=== PATIENT | female | born 1965 | race Caucasian/White ===

== ENCOUNTER 2016-08-19 19:59 | Emergency (ER) | payer MEDICARE, MEDICAID ==
[2016-06-13 17:51] VITALS: BMI 23.1
[~2016-08-19 19:59] MED LIST: ASPIRIN325 MG PO; BENICAR HCT 40-1 TA1 PO; BENICAR20 MG PO; CHANTIX 1 MG TAB1 MG PO; CHANTIX0.5 MG; CORDARONE200 MG PO; HEMOCYTE PLUS1 CAP PO; HYDROCHLOROTHIA25 MG GT; HYDROCHLOROTHIA25 MG PO; HYZAAR 50-12.51 TAB PO; K-DUR20 MEQ PO; KLONOPIN1 MG PO; LORCET PLUS TAB1 TAB; OLEPTRO ER150 MG PO; PREMARIN45 GM VG; TENORMIN25 MG PO; TRAZODONE HCL150 MG PO
== END 2016-08-19 22:28 | disposition home or self-care (01) ==
LOC: D.ER 19:59
DX: R07.89 Other chest pain (principal); F17.200 Nicotine dependence, unspecified, uncomplicated

== ENCOUNTER → 2016-09-03 09:38 | Outpatient (CLI) | payer MEDICARE, MEDICAID ==
[2016-06-13 17:51] VITALS: BMI 23.1
[~2016-09-03 09:38] MED LIST changes: +BYSTOLIC5 MG PO; +CARAFATE1 G PO; +PROTONIX40 MG PO
== END | disposition home or self-care (01) ==
LOC: D.CT 09:38
DX: R07.1 Chest pain on breathing (principal)

== ENCOUNTER 2016-09-28 22:45 | Observation (INO) | payer MEDICARE, MEDICAID ==
[~2016-09-28] VITALS: Ht 157.5 cm; Wt 58.2 kg
[~2016-09-28 22:45] MED LIST changes: -BYSTOLIC5 MG PO; -CARAFATE1 G PO; -PROTONIX40 MG PO
[2016-09-28 23:49] LABS: BASOPHILS 0.4 % (0.0-2.0); EOSINOPHILS 3.3 % (0-7); HEMATOCRIT 44.3 % (36.0-48.0); HEMOGLOBIN 15.2 g/dL (12-16); IMMATURE GRANULOCYTES 0.3 % (0-5); LYMPHOCYTES 31.7 % (15-50); MCH 31.7 pg (26.0-34.0); MCHC 34.3 g/dL (31.0-37.0); MCV 92.5 fL (80.0-100.0); MEAN PLATELET VOLUME 9.5 fL (7.4-10.4); MONOCYTES 4.3 % (2-11); PLATELET COUNT 223 10x3/uL (130-400); RBC 4.79 10x6/uL (4.00-5.40); RDW 13.7 % (11.5-14.5); WBC 7.9 10x3/uL (4.8-10.8)
[2016-09-29 00:08] LABS: AMYLASE - SERUM 52 U/L (25-115); LIPASE 867 U/L (73-393)
--- NOTE | 2016-09-29 03:37 | NUR ---
RECEIVED TO ROOM 2109 ALERT AND ORIESNTED 51 Y/O FEMALE SEEN BY DR PEDRAZA FOR PANCREATITIS. NPO, UP AD POLY W/O DIFF. HOB UP SR UP X2, C/L IN REACH. CONTINUE TO MONITOR.
[2016-09-29 04:46] VITALS: BP 127/61; BMI 22.9
[2016-09-29 05:54] LABS: AMYLASE - SERUM 43 U/L (25-115); LIPASE 336 U/L (73-393)
[2016-09-29 07:15] LABS: AMYLASE - SERUM 40 U/L (25-115); LIPASE 299 U/L (73-393)
--- NOTE | 2016-09-29 07:33 | NUR ---
0725-COMPLAINTS OF ABDOMINAL PAIN, 02/16. 0.5 MG DILAUDID GIVEN PER REQUEST. BOWEL SOUNDS HEARD THROUGHOUT ALL QUADS, INST PATIENT TO CALL US IF PRODUCES BOWEL MOVEMENT SO THAT WE CAN SEE IT TO CHART. STATES TO UNDERSTANDING. NPO AT PRESENT TIME. IV SEEN TO LEFT AC OF NS INFUSING AT 125 CC/HR WITHOUT PROBLEMS. LIPASE IS DOWN THIS AM, 299. WILL CONTNUE TO MONITOR.
[2016-09-29 07:47] VITALS: BP 128/86
--- NOTE | 2016-09-29 09:05 | NUR ---
RATIONALE FOR SCD'S EXPLAINED. REFUSED SCD'S AT THIS TIME.
[2016-09-29 11:10] VITALS: BP 134/87
--- NOTE | 2016-09-29 11:11 | NUR ---
CALLED DESTINEE IN PHARMACY TO RE-TIME THE KLONOPIN TID I JUST GAVE HER A DOSE AND I THINK 1500 WOULD BE TOO SOON TO GIVE HER ANOTHER DOSE.
[2016-09-29 13:01] VITALS: Ht 157.5 cm; Wt 58.2 kg
[2016-09-29 14:05] LABS: APPEARANCE CLEAR (CLEAR); BILIRUBIN NEGATIVE (NEGATIVE); COLOR YELLOW (YELLOW); GLUCOSE NEGATIVE (NEGATIVE); KETONE NEGATIVE (NEGATIVE); LEUKOCYTE ESTERASE NEGATIVE (NEGATIVE); NITRITE NEGATIVE (NEGATIVE); PROTEIN NEGATIVE (NEGATIVE); UROBILINOGEN NORMAL (NORMAL)
--- NOTE | 2016-09-29 14:55 | NUR ---
CALLED PHARMACY AGAIN TO RE-TIME THE KLONOPIN.
--- NOTE | 2016-09-29 15:37 | NUR ---
COMPLAINTS OF ABDOMINAL PAIN 6/10, DILADID GIVEN PER REQUEST. WILL CONTINUE TO MONITOR, PATIENT IS ON THE PHONE.
[2016-09-29 16:27] VITALS: BP 120/76
[2016-09-29 20:00] VITALS: BP 116/61
--- NOTE | 2016-09-29 21:10 | NUR ---
DILADID 0.5MG IV ADM FOR C/O ABD PAIN. HAIR INJ WELL. HOB UP SR UP X2, C/L IN REACH. ZOFRAN 4MG IV ADM FOR C/O NAUSEA. HAIR INJ WELL. CONTINUE TO MONITOR.
[2016-09-30] VITALS: BP 121/59
[2016-09-30 04:00] VITALS: BP 88/64
[2016-09-30 05:52] LABS: AMYLASE - SERUM 22 U/L (25-115); LIPASE 169 U/L (73-393)
--- NOTE | 2016-09-30 07:22 | NUR ---
AWAKE WHEN AM ROUNDING MADE. DENIES NEEDS AT PRESENT TIME. LEFT AC SEEN WITH NS INFUSING AT 125 CC/HR. ON ROOM AIR. PAIN MEDS WHERE GIVEN EARILER IN SHIFT. WILL CONTINUE TO MONITOR.
[2016-09-30 07:32] VITALS: BP 126/74
[2016-09-30 11:34] VITALS: BP 165/90
[2016-09-30] MEDS ORDERED: BYSTOLIC5 MG PO (12:36)
[2016-09-30] MEDS ORDERED: CARAFATE1 G PO (12:37)
[2016-09-30] MEDS ORDERED: PROTONIX40 MG PO (12:37)
--- NOTE | 2016-09-30 13:21 | NUR ---
WAS INFORMED BY PATIENT THAT SHE HAS A TICK UNDER HER ARMPIT WITH A PIECE OF TAPE ON IT THAT SHE IS "SAVING FOR THE CDC". PATIENT ALSO RIPPED HER IV OUT SHE IS GOING HOME. TICK REMOVED WITH HEAD INTACT. CLEANED AREA WITH ALCHOL PAD. I ASKED HER HOW THE IV CAME OUT (CATH TIP INTACT) AND PATIENT'S REPLY IS "WELLLLLLL". WILL CONTINUE TO MONITOR.
--- NOTE | 2016-09-30 13:38 | NUR ---
VERBAL AND WRITTEN DISHCARGE INSTRUCTIONS GIVEN TO PATIENT. DISCHARGED HOME VIA WHEELCHAIR.
== END 2016-09-30 13:52 ==
LOC: D.ER 22:45 → D.M2 09-29 02:46 → OBSVTIME 09-29 02:46 → D.M2 09-30 13:52
PROVIDERS: Family Medicine; ADMIT Family Medicine
DX: K85.90 Acute pancreatitis without necrosis or infection, unspecified (principal); F43.10 Post-traumatic stress disorder, unspecified; M81.0 Age-related osteoporosis without current pathological fracture; F41.9 Anxiety disorder, unspecified; Z86.73 Personal history of transient ischemic attack (TIA), and cerebral infarction without residual deficits; Z85.41 Personal history of malignant neoplasm of cervix uteri; Z85.038 Personal history of other malignant neoplasm of large intestine; Z85.43 Personal history of malignant neoplasm of ovary; Z85.42 Personal history of malignant neoplasm of other parts of uterus; Z85.028 Personal history of other malignant neoplasm of stomach; K21.9 Gastro-esophageal reflux disease without esophagitis; I10 Essential (primary) hypertension; Z72.0 Tobacco use

== ENCOUNTER 2016-11-22 22:57 | Emergency (ER) | payer MEDICARE, MEDICAID ==
[2016-09-29 13:01] VITALS: BMI 22.8
[~2016-11-22 22:57] MED LIST changes: +BYSTOLIC5 MG PO; +CARAFATE1 G PO; +PROTONIX40 MG PO
== END 2016-11-23 00:53 | disposition home or self-care (01) ==
LOC: D.ER 22:57
DX: S69.91XA Unspecified injury of right wrist, hand and finger(s), initial encounter (principal); Y04.2XXA Assault by strike against or bumped into by another person, initial encounter; Y93.89 Activity, other specified; Y92.89 Other specified places as the place of occurrence of the external cause; S00.83XA Contusion of other part of head, initial encounter; F17.200 Nicotine dependence, unspecified, uncomplicated

== ENCOUNTER 2016-11-29 16:07 | Emergency (ER) | payer MEDICARE, MEDICAID ==
[2016-09-29 13:01] VITALS: BMI 22.8
[2016-11-29 17:53] LABS: BASOPHILS 0.4 % (0-2); EOSINOPHILS 3.5 % (0-7); HEMATOCRIT 40.7 % (36.0-48.0); HEMOGLOBIN 13.6 g/dL (12-16); IMMATURE GRANULOCYTES 0.1 % (0-5); LYMPHOCYTES 32.2 % (15-50); MCH 31.3 pg (26.0-34.0); MCHC 33.4 g/dL (31.0-37.0); MCV 93.6 fL (80.0-100.0); MEAN PLATELET VOLUME 9.7 fL (7.4-10.4); MONOCYTES 5.1 % (2-11); NEUTROPHILS 58.7 % (40-80); PLATELET COUNT 200 10x3/uL (130-400); RBC 4.35 10x6/uL (4.00-5.40); RDW 13.2 % (11.5-14.5); WBC 7.1 10x3/uL (4.8-10.8)
[2016-11-29 18:06] LABS: ALBUMIN 3.8 g/dL (3.4-5.0); ANION GAP 14.1 mmol/L (8-16); BILIRUBIN - TOTAL 0.27 mg/dL (0.2-1.3); CALCIUM 8.8 mg/dL (8.5-10.1); CARBON DIOXIDE 26.7 mmol/L (21.0-32.0); CREATININE - SERUM 0.9 mg/dL (0.6-1.3); POTASSIUM - SERUM 3.8 mmol/L (3.5-5.1); PROTEIN - SERUM 7.5 g/dL (6.4-8.2)
[2016-11-29 19:22] LABS: UDS - AMPHET NEGATIVE QUAL (NEGATIVE); UDS - BARB NEGATIVE QUAL (NEGATIVE); UDS - BENZO NEGATIVE QUAL (NEGATIVE); UDS - COCAINE NEGATIVE QUAL (NEGATIVE); UDS - METH NEGATIVE QUAL (NEGATIVE); UDS - OPIATE POSITIVE QUAL (NEGATIVE); UDS - PCP NEGATIVE QUAL (NEGATIVE); UDS - THC POSITIVE QUAL (NEGATIVE)
== END 2016-11-29 19:56 | disposition home or self-care (01) ==
LOC: D.ER 16:07
PROVIDERS: Physician Assistant
DX: F07.81 Postconcussional syndrome (principal); Y04.2XXA Assault by strike against or bumped into by another person, initial encounter; Y93.89 Activity, other specified; Y92.89 Other specified places as the place of occurrence of the external cause; R51 Headache; F17.200 Nicotine dependence, unspecified, uncomplicated

== ENCOUNTER → 2016-12-04 12:50 | Outpatient (CLI) | payer MEDICARE, MEDICAID ==
[2016-09-29 13:01] VITALS: BMI 22.8
== END | disposition home or self-care (01) ==
LOC: D.RAD 12-02 13:00
DX: S63.511A Sprain of carpal joint of right wrist, initial encounter (principal); T17.228A Food in pharynx causing other injury, initial encounter

== ENCOUNTER 2016-12-17 18:02 | Emergency (ER) | payer MEDICARE, MEDICAID ==
[2016-09-29 13:01] VITALS: BMI 22.8
[2016-12-17 19:04] LABS: BASOPHILS 0.4 % (0-2); EOSINOPHILS 2.7 % (0-7); HEMATOCRIT 42.7 % (36.0-48.0); HEMOGLOBIN 14.4 g/dL (12-16); IMMATURE GRANULOCYTES 0.2 % (0-5); LYMPHOCYTES 41.5 % (15-50); MCH 31.4 pg (26.0-34.0); MCHC 33.7 g/dL (31.0-37.0); MEAN PLATELET VOLUME 9.7 fL (7.4-10.4); MONOCYTES 7.4 % (2-11); NEUTROPHILS 47.8 % (40-80); PLATELET COUNT 284 10x3/uL (130-400); RBC 4.59 10x6/uL (4.00-5.40); RDW 12.7 % (11.5-14.5); WBC 9.5 10x3/uL (4.8-10.8)
[2016-12-17 19:23] LABS: ALKALINE PHOSPHATASE 114 U/L (46-116); ALT (SGPT) 32 U/L (10-68); CALC OSMOLALITY 283 mosm/kg (275-300); CARBON DIOXIDE 27.2 mmol/L (21.0-32.0); CHLORIDE - SERUM 104 mmol/L (98-107); GLUCOSE 97 mg/dL (74-106); POTASSIUM - SERUM 3.9 mmol/L (3.5-5.1); PROTEIN - SERUM 7.8 g/dL (6.4-8.2); SODIUM 143 mmol/L (136-145); UREA NITROGEN 11 mg/dL (7-18); eGFR NON AFRICAN AMERICAN 61 mL/min (90-120)
[2016-12-17 19:33] LABS: CKMB 0.3 U/L (0.0-3.6); CREATINE KINASE 100 UL (21-215); TROPONIN-I < 0.017 ng/mL (0.000-0.060)
== END 2016-12-17 21:22 | disposition home or self-care (01) ==
LOC: D.ER 18:02
PROVIDERS: Emergency Medicine
DX: R07.9 Chest pain, unspecified (principal)

== ENCOUNTER 2016-12-23 14:43 | Observation (INO) | payer MEDICARE, MEDICAID ==
[~2016-12-23] VITALS: Ht 157.5 cm; Wt 52.3 kg
--- NOTE | ~2016-12-23 | OP ---
PATIENT NAME: FUNMILAYO ALEGRE MEDICAL RECORD: [id number] :61 LOCATION:D.M2 D.2115 ADMISSION DATE:12/23/16 SURGEON: SHADY FERREIRA MD DATE OF OPERATION: 12/24/2016 PROCEDURES: 1. Right heart catheterization. 2. Left heart catheterization. 3. Selective coronary angiography. 4. Left ventriculogram. INDICATIONS: Chest pain compatible with angina and abnormal nuclear stress test. PROCEDURE IN DETAIL: After informed consent was obtained and after detailed explanation of risks, benefits as well as alternative therapies, the patient elected to proceed with angiogram and heart catheterization. The right femoral area was prepped and draped in normal sterile fashion. The right femoral artery was cannulated via modified Seldinger technique with placement of 5-Maldivian sheath. Right femoral vein cannulated via modified Seldinger technique with placement of a 7-Maldivian sheath. All catheters exchanged through these sheaths. FINDINGS: 1. Hemodynamics: Right atrial mean pressure of 11. Right ventricular pressure 45/5, pulmonary artery pressure of 45/20, pulmonary mean capillary wedge pressure 20. Left ventricular pressure 87/5, aortic pressure 87/60. 2. Left ventriculogram was performed in standard 30-degree BEATTY view, reveals good cardiac wall motion throughout all segments. Overall ejection fraction is 60%. SELECTIVE CORONARY ANGIOGRAPHY: Left main, left anterior descending, left circumflex, and right coronary artery are all smooth-walled vessels with no angiographic evidence of coronary artery disease. OVERALL IMPRESSION: 1. No angiographic evidence of coronary artery disease. 2. Normal left heart pressures. 3. Normal left ventricular systolic function. Chest pain is noncardiac in etiology. No further cardiac workup needs to be ascertained. TRANSINT:[id number] Voice Confirmation ID: [id number] DOCUMENT ID: [id number] SHADY FERREIRA MD CC: [id number] DICTATION DATE: 12/24/16 1007 DIESEL RETROFIT INSTALLER: 12/24/16 1150 ADM IN [place] [id number] [place] [address]
--- NOTE | ~2016-12-23 | DS ---
PATIENT:FUNMILAYO JOHNSON :61 MEDICAL RECORD: [id number] DISCHARGE SUMMARY ADMISSION DATE: 12/23/16 DISCHARGE DATE: 12/24/16 DISCHARGE DIAGNOSES: 1. Chest pain of unknown etiology. 2. Mitral regurgitation, status post mitral valve repair. HOSPITAL COURSE: Mrs. Johnson presents with chest pain. Her cardiac catheterization, however, revealed no significant coronary artery disease, no significant mitral regurgitation, overall normal pulmonary pressures. She was discharged home for noncardiac chest pain with no other cardiac workup treatment necessary. TRANSINT:[id number] Voice Confirmation ID: [id number] DOCUMENT ID: [id number] SHADY FERREIRA MD CC: [id number] DICTATION DATE: 12/24/16 1005 MIDWIFE PRACTITIONER: 12/25/16 0143 DIS IN 12/24/16 [facility] [address] [place] [address]
--- NOTE | ~2016-12-23 | HEMODYNAMI ---
PATIENT:FUNMILAYO ALEGRE MEDICAL RECORD: [id number] : 61 LOCATION:[facility].2115 ADMISSION DATE: 12/23/16 Generatedon:12/24/201610:07 Patient name: FUNMILAYO ALEGRE Patient #: [id number] SSN: : 1965 Date of study: 12/24/2016 Page: Of Hemodynamic Procedure Report Patient Data Patient Demographics Procedure consent was obtained First Name: FUNMILAYO Gender: Female Last Name: CODEY : 1965 Middle Initial: A Age: 51 year(s) Patient #: [id number] Race: Unknown Additional ID: [id number] Contact details Address: [address] [place] [address] AVE State: [place] City: [facility] Zip code: [address] Admission Admission Data Admission Date: 12/23/2016 Admission Time: 16:39 Room #: [facility] Procedure Procedure Types Cath Procedure Diagnostic Procedure Right Heart RHC and LHC w/Coronaries Miscellaneous Procedures Moderate Sedation up to 15 minutes Procedure Description Procedure Date Procedure Date: 12/24/2016 Procedure Start Time: 9:52 Procedure End Time: 10:06 Procedure Staff Name Function Danny Smallwood MD Performing Physician Lauri Sparrow RT Scrub Santiago Carter RT Monitor Fabiola Arechiga RN Nurse Con Salguero RN Revenue Stamp Cutter Procedure Data Cath Procedure Fluoroscopy Diagnostic fluoroscopy Total fluoroscopy Time: 1.8 time: 1.8 min min Diagnostic fluoroscopy Total fluoroscopy dose: 177 dose: 177 mGy mGy Contrast Material Contrast Material Type Amount (ml) Isovue 300 53 Entry Location Entry Primary Successful Side Size Upsize Upsize Entry Closure Avina ccessful Closure Location (Fr) 1 (Fr) 2 (Fr) Remarks Device Remarks Femoral Right 5 Fr Exoseal artery Femoral Right 7 Fr Manual vein Short Compression Estimated blood loss: 10 ml Diagnostic catheters Device Type Used For End Catheter Placement Cordis 5Fr Pigtail Procedure Catheter (MP) Cordis 5Fr JL 4.0 Procedure Catheter (MP) Cordis 5Fr 3DRC Catheter Procedure (MP) Vargas Pictoramaciences 7Fr Procedure [place] Thermodilution charline Procedure Complications No complications Procedure Medications Medication Administration Route Dosage Oxygen NC 2 l/min Heparin Flush Bag added to field 2 bags (1000units/500ml NS) Lidocaine 2% added to field 20 Versed I.V. 1 mg Fentanyl I.V. 50 mcg Versed I.V. 1 mg Fentanyl I.V. 50 mcg Versed I.V. 1 mg Fentanyl I.V. 50 mcg Versed I.V. 1 mg Fentanyl I.V. 50 mcg Versed I.V. 1 mg Fentanyl I.V. 50 mcg Versed I.V. 1 mg Fentanyl I.V. 50 mcg Versed I.V. 1 mg Fentanyl I.V. 50 mcg Versed I.V. 0.5 mg Fentanyl I.V. 50 mcg Hemodynamics Rest Heart Rate: 57 (bpm) Pressure Samples Time Site Value (mmHg) Purpose Heart Use Rate(bpm) 9:56 LV 86/6,8 Snapshot 82 9:59 RA 13/19(12) Snapshot 90 9:59 RV 48/4,8 Snapshot 90 10:00 PCW 26/21(21) Snapshot 94 10:00 PA 46/21(32) Snapshot 88 Gradients Valve Time Site Site Mean SEP/DFP Peak To Heart Use 1 2 (mmHg) (sec/min) Peak Rate (mmHg) (bpm) Aortic 9:56 LV AO 77 Snapshots Pre Cath Intra NCS Post Cath Vital Signs Time Heart Resp SPO2 NIBP (mmHg) Rhythm Pain Sedation Rate (ipm) (%) Status Level (bpm) 8:54:11 58 16 97 157/89(131) NSR 0 (11) 10(A) , No pain 8:58:25 57 16 99 148/93(111) NSR 0 (11) 10(A) , No pain 9:02:35 68 16 97 125/93(108) NSR 0 (11) 10(A) , No pain 9:06:40 66 15 97 142/81(118) NSR 0 (11) 10(A) , No pain 9:10:54 71 19 95 116/77(94) NSR 0 (11) 10(A) , No pain 9:14:56 80 17 95 106/84(92) NSR 0 (11) 10(A) , No pain 9:19:02 82 16 97 103/64(87) NSR 0 (11) 10(A) , No pain 9:23:03 78 16 96 114/71(92) NSR 0 (11) 10(A) , No pain 9:27:09 78 16 96 114/70(86) NSR 0 (11) 10(A) , No pain 9:31:17 78 16 95 111/67(88) NSR 0 (11) 10(A) , No pain 9:35:25 78 16 96 97/61(74) NSR 0 (11) 10(A) , No pain 9:39:29 76 16 97 95/57(77) NSR 0 (11) 10(A) , No pain 9:43:30 77 17 97 96/60(74) NSR 0 (11) 10(A) , No pain 9:47:30 76 16 97 96/66(74) NSR 0 (11) 10(A) , No pain 9:51:32 69 16 97 112/60(82) NSR 0 (11) 10(A) , No pain 9:55:40 77 16 97 98/59(82) NSR 0 (11) 10(A) , No pain 9:59:39 89 16 97 97/69(84) NSR 0 (11) 10(A) , No pain 10:03:41 90 16 95 105/60(81) NSR 0 (11) 10(A) , No pain Medications Time Medication Route Dose Verified Delivered Reason Notes Effect iveness by by 8:53:14 Oxygen NC 2 Danny Fabiola Per l/min Selin Arechiga RN physician 8:53:22 Heparin Flush added 2 Danny Delgado used for Bag to bags Selin Smallwood MD procedure (1000units/500ml field NS) 8:53:29 Lidocaine 2% added 20ml Danny Delgado used for to vial Selin Smallwood MD procedure field 9:37:00 Versed I.V. 1 mg Danny Fabiola for Selin Arechiga RN sedation 9:37:06 Fentanyl I.V. 50 Danny Fabiola for mcg Selin Arechiga RN sedation 9:39:03 Versed I.V. 1 mg Danny Fabiola for Selin Arechiga RN sedation 9:39:11 Fentanyl I.V. 50 Danny Fabiola for mcg Selin Hawk RN sedation 9:41:08 Versed I.V. 1 mg Danny Fabiola for Selin Hawk RN sedation 9:41:12 Fentanyl I.V. 50 Danny Fabiola for mcg Selin Hawk RN sedation 9:43:08 Versed I.V. 1 mg Danny Fabiola for Selin Hawk RN sedation 9:43:14 Fentanyl I.V. 50 Danny Fabiola for mcg Selin Hawk RN sedation 9:45:02 Versed I.V. 1 mg Danny Fabiola for Selin Hawk RN sedation 9:45:05 Fentanyl I.V. 50 Danny Fabiola for mcg Selin Hawk RN sedation 9:47:01 Versed I.V. 1 mg Danny Fabiola for Selin Hawk RN sedation 9:47:10 Fentanyl I.V. 50 Danny Fabiola for mcg Selin Hawk RN sedation 9:49:17 Versed I.V. 1 mg Danny Fabiola for Selin Hawk RN sedation 9:49:20 Fentanyl I.V. 50 Danny Fabiola for mcg Selin Hawk RN sedation 9:56:56 Versed I.V. 0.5 Danny Fabiola for mg Selin Hawk RN sedation 9:57:00 Fentanyl I.V. 50 Danny Fabiola for mcg Selin Hawk RN sedation Procedure Log Time Note 8:20:23 Informed consent obtained and on chart 8:21:29 Time tracking: Regular hours 8:21:32 Plan of Care:Hemodynamics will remain stable., Cardiac rhythm will remain stable., Comfort level will be maintained., Respiratory function will remain adequate., Patient/ family verbilizes understanding of procedure., Procedure tolerated without complication., Recovers from procedure without complications.. 8:25:18 Santiago HIDALGO(R) sent for patient. Start room use. 8:35:54 ACC Patient presents with Unstable Angina CCS Anginal Class 3--Marked limitation of physical activity, angina occurs with ordinary activity.. 8:35:58 Diagnostic Cath status Urgent 8:45:34 Patient received from PCU to CCL 2 Alert and oriented. Tansferred to table in Supine position. 8:52:58 Warm blankets applied, and cyrus hugger turned on for patient comfort. 8:52:58 Correct patient and procedure confirmed by team. 8:52:59 ECG and BP/O2 sat monitors applied to patient. 8:52:59 Vital chart was started 8:53:01 Baseline sample Acquired. 8:53:05 Rhythm: sinus bradycardia 8:53:06 Full Disclosure recording started 8:53:14 Oxygen 2 l/min NC was administered by Fabiola Arechiga RN; Per physician; 8:53:22 Heparin Flush Bag (1000units/500ml NS) 2 bags added to field was administered by Danny Smallwood MD; used for procedure; 8:53:29 Lidocaine 2% 20ml vial added to field was administered by Danny Smallwood MD; used for procedure; 9:04:37 H&P Date Dictated: 12/23/2016 Within 30 days and on chart.. 9:04:38 Pre-procedure instructions explained to patient. 9:04:38 Pre-op teaching completed and patient verbalized understanding. 9:04:39 Family in waiting room. 9:04:40 Patient NPO since Midnight. 9:04:41 Is the patient allergic to Iodine/contrast media? No. 9:04:45 Is patient on blood thinner?No 9:04:52 Patient diabetic? No. 9:04:54 Patient not . Patient has had hysterectomy. 9:04:56 Previous problem with sedation/anesthesia? No ? 9:04:57 Snore? Yes 9:04:59 Sleep apnea? No 9:05:00 Deviated septum? No 9:05:01 Opens mouth fully? Yes 9:05:03 Sticks out tongue? Yes 9:05:09 Airway obstruction? Yes COPD 9:05:13 Dentures? No ? 9:05:15 Pre procedure: right dorsailis pedis pulse 1+ Palpable, but thready & weak; easily obliterated 9:05:18 Patient pain scale 0/10 ?. 9:05:21 IV patent on arrival in right forearm with 0.9% NaCl at KVO. 9:05:27 Lab results completed and on chart. 9:05:30 Right groin area was prepped with chlora-prep and draped in sterile fashion 9:05:31 Alarms reviewed by R. N. 9:05:32 Sharps counted by scrub and verified by R.N. 9:05:39 Use device set Femoral Dx 9:05:41 Tegaderm 4 x 4 opened to sterile field. 9:05:42 Acist Manifold opened to sterile field. 9:05:42 Acist Hand Control opened to sterile field. 9:05:44 Acist Syringe opened to sterile field. 9:05:44 Bag Decanter opened to sterile field. 9:05:45 Medline Cath Pack opened to sterile field. 9:05:45 Terumo 5Fr [employer] Sheath opened to sterile field. 9:05:45 St Sudhir 260cm J .035 wire opened to sterile field. 9:05:46 Diagnostic Infinity 5Fr Multipack catheter opened to sterile field. 9:06:02 Terumo 7Fr [employer] Sheath opened to sterile field. 9:20:36 Dr. Smallwood in room 1 9:21:52 Zero performed for pressure channel P1 9:36:39 --------ALL STOP TIME OUT------ 9:36:40 Final Timeout: patient, procedure, and site verified with staff and physician. All members of the team are in agreement. 9:36:42 Right groin site verified by team. 9:36:45 Physical assessment completed. ASA score P 2 - A patient with mild systemic disease as per Danny Smallwood MD. 9:36:48 Sedation plan: IV Moderate Sedation Versed, Fentanyl 9:37:00 Versed 1 mg I.V. was administered by Fabiola Arechiga RN; for sedation; 9:37:06 Fentanyl 50 mcg I.V. was administered by Fabiola Arechiga RN; for sedation; 9:39:03 Versed 1 mg I.V. was administered by Fabiola Arechiga RN; for sedation; 9:39:11 Fentanyl 50 mcg I.V. was administered by Fabiola Arechiga RN; for sedation; 9:41:08 Versed 1 mg I.V. was administered by Fabiola Arechiga RN; for sedation; 9:41:12 Fentanyl 50 mcg I.V. was administered by Fabiola Arechiga RN; for sedation; 9:43:08 Versed 1 mg I.V. was administered by Fabiola Arechiga RN; for sedation; 9:43:14 Fentanyl 50 mcg I.V. was administered by Fabiola Arechiga RN; for sedation; 9:45:02 Versed 1 mg I.V. was administered by Fabiola Arechiga RN; for sedation; 9:45:05 Fentanyl 50 mcg I.V. was administered by Fabiola Arechiga RN; for sedation; 9:47:01 Versed 1 mg I.V. was administered by Fabiola Arechiga RN; for sedation; 9:47:10 Fentanyl 50 mcg I.V. was administered by Fabiola Arechiga RN; for sedation; 9:49:17 Versed 1 mg I.V. was administered by Fabiola Arechiga RN; for sedation; 9:49:20 Fentanyl 50 mcg I.V. was administered by Fabiola Arechiga RN; for sedation; 9:52:17 Procedure started. 9:52:21 Local anesthetic to right femoral artery with Lidocaine 2% by Danny Smallwood MD.INITIAL ACCESS ONLY 9:54:17 A 5 Fr sheath was inserted into the Right Femoral artery 9:54:48 A 7 Fr Short sheath was inserted into the Right Femoral vein 9:55:20 A Cordis 5Fr Pigtail Catheter (MP) was advanced over the wire and used for Procedure. 9:56:22 LV angiography performed. 9:56:24 LV gram done using BEATTY 9:56:56 Versed 0.5 mg I.V. was administered by Fabiola Arechiga RN; for sedation; 9:57:00 Fentanyl 50 mcg I.V. was administered by Fabiola Arechiga RN; for sedation; 9:57:14 EF : 60 % 9:57:17 LV hemodynamics recorded. 9:57:19 Injector settings: Ml/sec: 15, Volume: 30, 9:57:22 Catheter removed. 9:57:26 A Cordis 5Fr JL 4.0 Catheter (MP) was advanced over the wire and used for Procedure. 9:57:37 LCA angiography performed. 9:57:39 Catheter removed. 9:57:48 A Cordis 5Fr 3DRC Catheter (MP) was advanced over the wire and used for Procedure. 9:58:06 RCA angiography performed. 9:58:08 Catheter removed. 9:58:27 A Vargas Lifesciences 7Fr [place] Thermodilution charline was advanced over the wire and used for Procedure. 10:01:11 Right heart pressures and cardiac output were obtained. 10:01:43 Catheter removed. 10:01:49 Cordis 5Fr Exoseal opened to sterile field. 10:02:00 Sheath removed intact; hemostasis achieved with Exoseal to the Right Femoral artery. 10:02:02 Procedure ended.(Physican Out) 10:02:35 Fluoroscopy time 01.80 minutes. 10:02:38 Fluoroscopy dose: 177 mGy 10:02:38 Flurop Dose total: 177 10:02:42 Contrast amount:Isovue 300 53ml. 10:02:53 Sheath removed intact; hemostasis achieved with Manual Compression to the Right Femoral vein. 10:03:01 Sharps counted by scrub and verified by R.N. 10:03:02 Insertion/operative site no bleeding no hematoma. 10:03:04 Post-op/insertion site Right Femoral artery dressed using a 4 x 4 and Tegaderm. 10:03:05 Post Procedure Pulses reassessed and unchanged 10:03:09 Post-procedure physical assessment completed. ASA score P 2 - A patient with mild systemic disease as per Danny Smallwood MD. 10:03:11 Post procedure rhythm: unchanged. 10:03:18 Estimated blood loss: 10 ml 10:03:20 Post procedure instruction explained to patient.Patient verbalizes understanding. 10:03:20 Patient needs reinforcement of post procedure teaching. 10:03:38 Procedure type changed to Cath procedure, Diagnostic procedure, Right Heart, RHC and LHC w/Coronaries, Miscellaneous Procedures, Moderate Sedation up to 15 minutes 10:03:43 Procedure Complication : No complications 10:04:25 Procedure and supply charges have been captured, reviewed, submitted and are correct. 10:05:03 See physician's report for complete and final results. 10:05:09 Report given to PCU. 10:06:45 Vital chart was stopped 10:06:49 Patient transfered to PCU with Bed. 10:06:51 Procedure ended. 10:06:51 Full Disclosure recording stopped 10:06:56 End room use (Document Last) Device Usage Item Name Manufacture Quantity Catalog Hospital Part Current Minima l Lot# / Number Charge Number Stock Stock Serial# Code Tegaderm 4 x 4 3M 1 [id number] 438156 5 Acist Manifold Acist 1 23559 531791 171175 089536 5 [employer] Acist Hand Acist 1 87773 885535 404170 058762 5 Control [employer] Acist Syringe Acist 1 92386 067402 905056 403080 20 [employer] Inc Bag Decanter Microtek 1 2002S [id number] 67582 625380 5 Medical Inc. Medline Cath Cardinal 1 [id number] 077002 99073 976895 5 Pack Health Terumo 5Fr Terumo 1 [id number] 318766 739700 735657 [address] [employer] [address] Sud[address] Sudhir 1 527509 325614 009760 498775 30 J .035 wire Diagnostic Cardinal 1 [id number] 644926 93732 093438 30 Infinity 5Fr Health Multipack catheter Terumo 7Fr Terumo 1 [id number] 751481 182988 863717 5 [employer] Sheath Cordis 5Fr Cardinal 1 268877 5 Pigtail Health Catheter (MP) Cordis 5Fr JL Cardinal 1 [id number] 5 4.0 Catheter Health (MP) Cordis 5Fr Cardinal 1 786878 5 3D Catheter Health (MP) Vargas Vargas 1 [id number] 897766 04887 360426 3 Lifesciences Lifesciences 7Fr [place] Thermodilution charline Cordis 5Fr Cardinal 1 [id number] 541779 694568 073956 10 [facility] Health Signature Audit [place] Stage Time Signature Unsigned Intra-Procedure 12/24/2016 Santiago Carter 10:07:20 AM RT(R) Signatures Monitor : Santiago Carter RT Signature : Date : Time : [facility] [address] [facility] [place] [address]
[2016-12-23 15:28] LABS: BASOPHILS 0.3 % (0-2); EOSINOPHILS 4.4 % (0-7); HEMOGLOBIN 13.1 g/dL (12-16); IMMATURE GRANULOCYTES 0.1 % (0-5); LYMPHOCYTES 26.2 % (15-50); MCHC 33.6 g/dL (31.0-37.0); MCV 92.4 fL (80.0-100.0); MEAN PLATELET VOLUME 9.6 fL (7.4-10.4); MONOCYTES 5.1 % (2-11); NEUTROPHILS 63.9 % (40-80); RBC 4.22 10x6/uL (4.00-5.40); RDW 12.7 % (11.5-14.5); WBC 9.4 10x3/uL (4.8-10.8)
[2016-12-23 15:53] LABS: PLATELET COUNT 217 10x3/uL (130-400)
[2016-12-23 15:55] LABS: ALBUMIN 3.9 g/dL (3.4-5.0); ALKALINE PHOSPHATASE 84 U/L (46-116); ALT (SGPT) 21 U/L (10-68); BILIRUBIN - TOTAL 0.56 mg/dL (0.2-1.3); CALC OSMOLALITY 278 mosm/kg (275-300); CALCIUM 8.9 mg/dL (8.5-10.1); CARBON DIOXIDE 26.8 mmol/L (21.0-32.0); CHLORIDE - SERUM 105 mmol/L (98-107); CREATININE - SERUM 0.8 mg/dL (0.6-1.3); GLUCOSE 98 mg/dL (74-106); POTASSIUM - SERUM 3.5 mmol/L (3.5-5.1); PROTEIN - SERUM 7.2 g/dL (6.4-8.2); SODIUM 141 mmol/L (136-145); UREA NITROGEN 8 mg/dL (7-18); eGFR NON AFRICAN AMERICAN 79 mL/min (90-120)
[2016-12-23 15:59] LABS: CHOL - HDL RATIO 3.5 ratio (2.3-4.1); CHOLESTEROL, TOTAL 180 mg/dL (0-200); CKMB 0.1 U/L (0.0-3.6); CREATINE KINASE 47 UL (21-215); HDL CHOLESTEROL 51 mg/dL (32-96); LDL CHOLESTEROL 107 mg/dL (0-100); LDL-HDL RATIO 2.1 ratio (1.5-3.5); TRIGLYCERIDE 110 mg/dL (30-200); TROPONIN-I < 0.017 ng/mL (0.000-0.060)
[2016-12-23 19:00] VITALS: BP 143/92
--- NOTE | 2016-12-23 19:00 | NUR ---
INITIAL ROUNDS MADE. PT SITTING UP IN BED WATCHING TV. NO NEEDS OR C/O VOICED AT THIS TIME. TELE SR. CONSENTS OBTAINED FOR [facility] IN AM. DISCUSSED PLAN OF CARE AND NPO AFTER MN. CALL LIGHT IN REACH. WILL CONT TO MONITOR.
[2016-12-23 23:35] VITALS: Ht 157.5 cm; Wt 52.3 kg
[2016-12-24 00:09] VITALS: BP 141/86
--- NOTE | 2016-12-24 03:31 | NUR ---
PROSPECT MANAGER AT BEDSIDE FOR VS. NEEDS ADDRESSED AT THIS TIME. CALL LIGHT IN REACH. WILL CONT TO MONITOR.
[2016-12-24 04:32] VITALS: BP 134/70
--- NOTE | 2016-12-24 06:27 | NUR ---
PRE CATH BATH COMPLETE
[2016-12-24 07:53] VITALS: BP 108/55
--- NOTE | 2016-12-24 07:57 | HP ---
PATIENT: FUNMILAYO JOHNSON MEDICAL RECORD: [id number] ACCOUNT: [id number] LOCATION:[address] : 61 ADMISSION DATE: 12/23/16 HISTORY AND PHYSICAL EXAMINATION ADMITTING DIAGNOSES: 1. Chest pain compatible with angina. 2. Abnormal nuclear stress test. 3. Mitral regurgitation. 4. Status post mitral valve repair approximately 5 years ago. 5. Smoking history. 6. Family history of coronary artery disease. 7. Gastroesophageal reflux disease. 8. Hypertension. HISTORY OF PRESENT ILLNESS: Mrs. Johnson presents with continued episodes of chest pain, chest discomfort compatible with angina. She has seen Dr. Garcia and recent past stress test was abnormal. Cardiac catheterization was planned. She does not have a history of coronary artery disease. She has a very strong family history of coronary artery disease. She has a history of mitral valve repair, but now, she has been told she has recurrent mitral regurgitation from this. PHYSICAL EXAMINATION: GENERAL APPEARANCE: Well-nourished, well-developed, appears stated age. Level of distress, comfortable. PSYCHIATRIC: Mental status, alert, normal affect. Orientation, oriented to time, place and person. EYES: Lids and conjunctiva, noninjected. No discharge, no pallor. ENT: Lips, teeth, gums, normal dentition. Oropharynx, no cyanosis, no pallor. NECK: Carotid arteries, bilateral normal upstroke, no bruits, no thrills. JUGULAR VEINS: No jugular venous pressure or distention. CERVICAL LYMPH NODES: Nontender, nonenlarged. THYROID: Not enlarged. Nontender. No nodules. LUNGS: Respiratory effort, unlabored. CHEST: Normal curvature. No thoracic deformity. No chest wall tenderness. Percussion, resonant. Auscultation, clear. No wheezes, no rales, no rhonchi. CARDIOVASCULAR: Precordial exam, nondisplaced. No heaves or pericardial thrills. Rate and rhythm, regular. Heart sounds, normal S1, normal S2. No S3, no gallop, no rub. Systolic murmur, not heard. Diastolic murmur, not heard. EXTREMITIES: No cyanosis, no edema. Peripheral pulses, full and equal in all extremities, except as noted. No bruits appreciated. ABDOMEN: Soft, nondistended. Normal aorta. No bruit. Nontender. No masses. Liver, nontender, no hepatomegaly. Spleen, nontender, no splenomegaly. MUSCULOSKELETAL: No joint tenderness. No joint swelling. No erythema. NEUROLOGICAL: Normal gait, normal strength, normal tone. SKIN: Warm and dry. REVIEW OF SYSTEMS: The patient reports easy bruising but reports no swollen glands. The patient reports no fever, no night sweats, no significant weight gain, no significant weight loss. No significant exercise tolerance. The patient reports no dry eyes, no irritation, no vision change. Patient reports no difficulty hearing and no ear pain. Patient reports no frequent nose bleeds or nose and sinus problems. Patient reports on arm pain on exertion. No shortness of breath while lying down. No history of heart murmur. Patient HISTORY AND PHYSICAL [id number] FUNMILAYO JOHNSON reports no cough, no wheezing or coughing up blood. Patient reports no abdominal pain, no vomiting. Normal appetite. No diarrhea and not vomiting blood. No nausea and no constipation. Patient reports no incontinence. No difficulty urinating. No hematuria. No increased frequency. Patient reports no muscle aches. No weakness, no arthralgias, no back pain. No swelling of the extremities. Patient reports no abnormal mole, no jaundice, no rashes. Reports no loss of consciousness. No weakness and no numbness. No seizures, dizziness, or headaches. The patient reports no depression, no sleep disturbance, feeling safe in a relationship and no alcohol abuse. Patient reports on fatigue. Reports no runny nose or sinus pressure. No itching, no hives, and no frequent sneezing. OVERALL IMPRESSION: Chest pain compatible with angina, it very well may be just secondary to her valvular heart disease. We will proceed with left and right heart catheterization for evaluation of the valve, pulmonary pressures, as well as coronaries. Further care depends upon the findings of this. TRANSINT:[id number] Voice Confirmation ID: [id number] DOCUMENT ID: [id number] SHADY FERREIRA MD at 0757 CC: [id number] DICTATION DATE: 12/23/161614 PACKING MACHINE OPERATOR: 12/23/16 162 ADM IN [facility] [address] [place] [address]
--- NOTE | 2016-12-24 08:42 | NUR ---
PRE-OPS GIVEN. TO MEDICAL ONCOLOGIST BY BED.
--- NOTE | 2016-12-24 10:24 | NUR ---
BACK FROM PRODUCTION ENGINEER. VS WNL. RIGHT GROIN STABLE WITHOUT BLEEDING OR HEMATOMA NOTED. WILL MONITOR.
[2016-12-24 11:47] VITALS: BP 102/80
--- NOTE | 2016-12-24 11:54 | NUR ---
BED REST UP. GROIN STABLE.
--- NOTE | 2016-12-24 12:42 | NUR ---
IV AND TELEMETRY DCD. DC PLANS GIVEN. UNDERSTANDING VOICED. ESCORTED TO CAR BY W/C.
== END 2016-12-24 13:04 | disposition home or self-care (01) ==
LOC: D.ER 14:43 → OBSVTIME 16:39 → D.M2 16:39
PROVIDERS: Emergency Medicine; ADMIT Internal Medicine Interventional Cardiology
DX: R07.89 Other chest pain (principal); I34.0 Nonrheumatic mitral (valve) insufficiency; K21.9 Gastro-esophageal reflux disease without esophagitis; I10 Essential (primary) hypertension; Z72.0 Tobacco use

== ENCOUNTER 2017-01-04 16:20 | Emergency (ER) | payer MEDICARE, MEDICAID ==
[2016-12-23 23:35] VITALS: BMI 26.0
== END 2017-01-04 17:39 | disposition home or self-care (01) ==
LOC: D.ER 16:20
DX: J06.9 Acute upper respiratory infection, unspecified (principal); F17.200 Nicotine dependence, unspecified, uncomplicated

== ENCOUNTER → 2017-01-09 09:10 | Outpatient (CLI) | payer MEDICARE, MEDICAID ==
[2016-12-23 23:35] VITALS: BMI 26.0
[2017-01-09 11:40] LABS: ERYTHROCYTE SEDIMENTATION RATE 20 mm/hr (0-30)
[2017-01-10 07:22] LABS: IMMUNOGLOBULIN E 181 IU/mL (0-100)
== END | disposition home or self-care (01) ==
LOC: D.RT 09:00
PROVIDERS: Internal Medicine Pulmonary Disease
DX: J44.9 Chronic obstructive pulmonary disease, unspecified (principal)

== ENCOUNTER 2017-01-19 10:45 | Emergency (ER) | payer MEDICARE, MEDICAID ==
[2016-12-23 23:35] VITALS: BMI 26.0
== END 2017-01-19 13:30 | disposition home or self-care (01) ==
LOC: D.ER 10:45
DX: S20.212A Contusion of left front wall of thorax, initial encounter (principal); S20.211A Contusion of right front wall of thorax, initial encounter; W19.XXXA Unspecified fall, initial encounter; S43.402A Unspecified sprain of left shoulder joint, initial encounter; Y09 Assault by unspecified means; I10 Essential (primary) hypertension; J44.9 Chronic obstructive pulmonary disease, unspecified

== ENCOUNTER 2017-03-22 04:26 | Emergency (ER) | payer MEDICARE, MEDICAID ==
[2016-12-23 23:35] VITALS: BMI 26.0
== END 2017-03-22 05:50 | disposition home or self-care (01) ==
LOC: D.ER 04:26
DX: S32.591A Other specified fracture of right pubis, initial encounter for closed fracture (principal); X58.XXXA Exposure to other specified factors, initial encounter; Y93.89 Activity, other specified; Y92.89 Other specified places as the place of occurrence of the external cause; M54.30 Sciatica, unspecified side; J44.9 Chronic obstructive pulmonary disease, unspecified; I10 Essential (primary) hypertension

== ENCOUNTER 2017-04-25 22:07 | Emergency (ER) | payer MEDICARE, MEDICAID | END 2017-04-25 23:45 | disposition home or self-care (01) | LOC: D.ER 22:07 | DX: J44.1 Chronic obstructive pulmonary disease with (acute) exacerbation (principal); I10 Essential (primary) hypertension; F17.200 Nicotine dependence, unspecified, uncomplicated ==

== ENCOUNTER 2017-05-04 18:25 | Emergency (ER) | payer MEDICARE, MEDICAID ==
[2016-12-23 23:35] VITALS: BMI 26.0
== END 2017-05-04 22:18 | disposition home or self-care (01) ==
LOC: D.ER 18:25
DX: J01.90 Acute sinusitis, unspecified (principal); J44.9 Chronic obstructive pulmonary disease, unspecified; I10 Essential (primary) hypertension; F17.200 Nicotine dependence, unspecified, uncomplicated

== ENCOUNTER 2017-05-17 21:01 | Emergency (ER) | payer MEDICARE, MEDICAID ==
[2016-12-23 23:35] VITALS: BMI 26.0
[2017-05-17 22:28] LABS: BASOPHILS 0.4 % (0-2); EOSINOPHILS 4.9 % (0-7); HEMATOCRIT 40.8 % (36.0-48.0); HEMOGLOBIN 13.8 g/dL (12-16); IMMATURE GRANULOCYTES 0.1 % (0-5); LYMPHOCYTES 38.5 % (15-50); MCH 30.5 pg (26.0-34.0); MCHC 33.8 g/dL (31.0-37.0); MCV 90.3 fL (80.0-100.0); MEAN PLATELET VOLUME 9.6 fL (7.4-10.4); MONOCYTES 7.2 % (2-11); NEUTROPHILS 48.9 % (40-80); PLATELET COUNT 215 10x3/uL (130-400); RBC 4.52 10x6/uL (4.00-5.40); RDW 13.4 % (11.5-14.5); WBC 7.2 10x3/uL (4.8-10.8)
[2017-05-17 22:45] LABS: ALBUMIN 3.6 g/dL (3.4-5.0); ALKALINE PHOSPHATASE 96 U/L (46-116); ALT (SGPT) 36 U/L (10-68); CALC OSMOLALITY 279 mosm/kg (275-300); CALCIUM 9.1 mg/dL (8.5-10.1); CARBON DIOXIDE 27.2 mmol/L (21.0-32.0); CHLORIDE - SERUM 106 mmol/L (98-107); CREATININE - SERUM 0.9 mg/dL (0.6-1.3); GLUCOSE 95 mg/dL (74-106); POTASSIUM - SERUM 3.6 mmol/L (3.5-5.1); PROTEIN - SERUM 7.2 g/dL (6.4-8.2); SODIUM 141 mmol/L (136-145); UREA NITROGEN 11 mg/dL (7-18); eGFR NON AFRICAN AMERICAN 69 mL/min (90-120)
[2017-05-17 22:53] LABS: CHOL - HDL RATIO 5.7 ratio (2.3-4.1); CHOLESTEROL, TOTAL 188 mg/dL (0-200); CREATINE KINASE 41 UL (21-215); HDL CHOLESTEROL 33 mg/dL (32-96); LDL CHOLESTEROL 100 mg/dL (0-100); TRIGLYCERIDE 277 mg/dL (30-200); TROPONIN-I < 0.017 ng/mL (0.000-0.060)
== END 2017-05-18 00:03 | disposition home or self-care (01) ==
LOC: D.ER 21:01
PROVIDERS: Emergency Medicine
DX: R06.00 Dyspnea, unspecified (principal); J45.909 Unspecified asthma, uncomplicated; J44.9 Chronic obstructive pulmonary disease, unspecified; I10 Essential (primary) hypertension

== ENCOUNTER → 2017-05-22 10:19 | Outpatient (CLI) | payer MEDICARE, MEDICAID ==
[2016-12-23 23:35] VITALS: BMI 26.0
[~2017-05-22 10:19] MED LIST changes: +QVAR8.7 G1 INH
[2017-05-22 11:06] LABS: ANION GAP 10.5 mmol/L (8-16); CALCIUM 8.8 mg/dL (8.5-10.1); CARBON DIOXIDE 28.1 mmol/L (21.0-32.0); CREATININE - SERUM 0.9 mg/dL (0.6-1.3); POTASSIUM - SERUM 3.6 mmol/L (3.5-5.1)
--- NOTE | 2017-06-05 16:56 | EC ---
PATIENT:FUNMILAYO ALEGRE DATE OF SERVICE: 05/22/17 SEX: F MEDICAL RECORD: [id number] DATE OF : 61 LOCATION:D[facility] AGE OF PATIENT: 51 ADMISSION DATE: 05/22/17 REFERRING PHYSICIAN: INTERPRETING PHYSICIAN: SHADY SMALLWOOD MD ECHOCARDIOGRAM REPORT ECHO CHARGES 4 ECHO COMPLETE CLINICAL DIAGNOSIS: HEART FAILURE HX OF MITRAL VAVLE REPAIR, MITRAL AND TRICUSPID REGURG ECHOCARDIOGRAPHIC MEASUREMENTS (adult normal given) AC root (d.<3.7cm) 3.2 cm LV Septum d (<1.2 cm> 1.2 cm Valve Excursion 1.9 cm LV Septum (systole) 1.4 cm Left Atria (s.<4.0cm> 3.5 cm LVPW d(<1.2cm) 1.2 cm RV (d.<2.3cm) 4.4 cm LVPW (sytole) 1.3 cm LV diastole(<5.6CM) 4.7 cm MV E-F(>70mm/sec) cm LV systole 3.4 cm LVOT Diameter 1.6 cm MV exc.(>10mm) 1.6 cm Est.ejection fraction (50-75%) % Pericardial Effusion N DOPPLER: LVIT cm/sec A 113 cm/sec E 165 cm/sec LA cm/sec RVSP 51 mmHg LVOT 95 cm/sec AOP1/2T m/s Asc. Ao 141 cm/sec RVOT 73 cm/sec RA cm/sec PA 104 cm/sec AV Gradient Peak 8.00 mmHg AV Mean 3.90 mmHg AV Area 1.4 cm MV Gradient Peak 12.45mmHg MV Mean 5.23 mmHg MV Area cm COMMENTS: Harvest Worker: Jeffrey WARD Bar Machine Operator Production: 1 Dr. Smallwood TAPE# PACS DATE OF SERVICE: 05/22/2017 FINDINGS: 1. Left ventricular chamber size is within normal limits. Left ventricular systolic function is normal. Overall ejection fraction is estimated at 55%. 2. Left atrium is within normal limits at 3.5 cm. Right atrium and right ventricular chamber sizes are mildly dilated. 3. Valvular structures; there is an echogenic structure from a mitral valve ring. The remaining valvular structures have normal structure and motion. ECHOCARDIOGRAM REPORT [id number] FUNMILAYO ALEGRE 4. Doppler interrogation reveals mild to possibly moderate mitral regurgitation and severe tricuspid regurgitation. No other valvular insufficiency or stenosis. Pulmonary systolic pressure is elevated, estimated at 51 mmHg. 5. No evidence of pericardial effusion or left ventricular thrombus. TRANSINT:[id number] Voice Confirmation ID: [id number] DOCUMENT ID: [id number] SHADY SMALLWOOD MD at 1656 CC: [id number] DICTATION DATE: 05/22/17 1137 TRAVEL MED SURG RN: 05/22/17 1225 DEP CLI 05/22/17 [id number] [place] [address]
== END | disposition home or self-care (01) ==
LOC: D.ECHO 05-19 10:35 → D.LAB 05-19 11:00 → D.ECHO 10:19
PROVIDERS: Internal Medicine Pulmonary Disease
DX: I50.30 Unspecified diastolic (congestive) heart failure (principal)

== ENCOUNTER 2017-07-02 23:45 | Emergency (ER) | payer MEDICARE, MEDICAID ==
[2016-12-23 23:35] VITALS: BMI 26.0
[~2017-07-02 23:45] MED LIST changes: -QVAR8.7 G1 INH
[2017-07-03 00:20] LABS: BASOPHILS 0.5 % (0-2); HEMOGLOBIN 13.1 g/dL (12-16); IMMATURE GRANULOCYTES 0.2 % (0-5); MCH 30.3 pg (26.0-34.0); MCHC 33.6 g/dL (31.0-37.0); MCV 90.3 fL (80.0-100.0); MEAN PLATELET VOLUME 9.7 fL (7.4-10.4); MONOCYTES 7.6 % (2-11); NEUTROPHILS 30.7 % (40-80); PLATELET COUNT 188 10x3/uL (130-400); RBC 4.32 10x6/uL (4.00-5.40); RDW 12.9 % (11.5-14.5); WBC 6.4 10x3/uL (4.8-10.8)
[2017-07-03 00:45] LABS: ALBUMIN 3.4 g/dL (3.4-5.0); ALKALINE PHOSPHATASE 111 U/L (46-116); ALT (SGPT) 51 U/L (10-68); CALC OSMOLALITY 280 mosm/kg (275-300); CALCIUM 8.5 mg/dL (8.5-10.1); CARBON DIOXIDE 28.6 mmol/L (21.0-32.0); CHLORIDE - SERUM 105 mmol/L (98-107); CREATININE - SERUM 0.8 mg/dL (0.6-1.3); GLUCOSE 93 mg/dL (74-106); PROTEIN - SERUM 6.9 g/dL (6.4-8.2); SODIUM 142 mmol/L (136-145); UREA NITROGEN 6 mg/dL (7-18); eGFR NON AFRICAN AMERICAN 79 mL/min (90-120)
[2017-07-03 01:00] LABS: CKMB 0.4 U/L (0.0-3.6); CREATINE KINASE 64 UL (21-215); TROPONIN-I < 0.017 ng/mL (0.000-0.060)
== END 2017-07-03 00:35 | disposition home or self-care (01) ==
LOC: D.ER 23:45
PROVIDERS: Emergency Medicine
DX: R07.89 Other chest pain (principal); J44.9 Chronic obstructive pulmonary disease, unspecified; I10 Essential (primary) hypertension

== ENCOUNTER 2017-07-21 21:39 | Emergency (ER) | payer MEDICARE, MEDICAID ==
[2016-12-23 23:35] VITALS: BMI 26.0
[2017-07-21 22:45] LABS: BASOPHILS 0.4 % (0-2); EOSINOPHILS 6.2 % (0-7); HEMATOCRIT 40.7 % (36.0-48.0); HEMOGLOBIN 13.7 g/dL (12-16); IMMATURE GRANULOCYTES 0.1 % (0-5); LYMPHOCYTES 45.7 % (15-50); MCH 30.4 pg (26.0-34.0); MCHC 33.7 g/dL (31.0-37.0); MCV 90.2 fL (80.0-100.0); MONOCYTES 7.2 % (2-11); NEUTROPHILS 40.4 % (40-80); PLATELET COUNT 219 10x3/uL (130-400); RBC 4.51 10x6/uL (4.00-5.40); RDW 12.5 % (11.5-14.5); WBC 7.3 10x3/uL (4.8-10.8)
[2017-07-21 22:55] LABS: ALBUMIN 3.7 g/dL (3.4-5.0); ALKALINE PHOSPHATASE 90 U/L (46-116); ALT (SGPT) 47 U/L (10-68); CALC OSMOLALITY 275 mosm/kg (275-300); CALCIUM 8.9 mg/dL (8.5-10.1); CHLORIDE - SERUM 103 mmol/L (98-107); CREATININE - SERUM 0.8 mg/dL (0.6-1.3); GLUCOSE 92 mg/dL (74-106); POTASSIUM - SERUM 3.3 mmol/L (3.5-5.1); PROTEIN - SERUM 7.4 g/dL (6.4-8.2); SODIUM 139 mmol/L (136-145); UREA NITROGEN 7 mg/dL (7-18); eGFR NON AFRICAN AMERICAN 79 mL/min (90-120)
[2017-07-21 23:07] LABS: CHOL - HDL RATIO 5.7 ratio (2.3-4.1); CHOLESTEROL, TOTAL 183 mg/dL (0-200); CKMB 0.3 U/L (0.0-3.6); CREATINE KINASE 60 UL (21-215); HDL CHOLESTEROL 32 mg/dL (32-96); LDL CHOLESTEROL 98 mg/dL (0-100); LDL-HDL RATIO 3.1 ratio (1.5-3.5); TRIGLYCERIDE 269 mg/dL (30-200); TROPONIN-I < 0.017 ng/mL (0.000-0.060)
== END 2017-07-21 23:20 | disposition home or self-care (01) ==
LOC: D.ER 21:39
PROVIDERS: Emergency Medicine
DX: R07.89 Other chest pain (principal); I10 Essential (primary) hypertension; J44.9 Chronic obstructive pulmonary disease, unspecified

== ENCOUNTER 2017-07-30 12:04 | Outpatient (CLI) | payer MEDICARE, MEDICAID ==
[~2017-07-30] VITALS: Ht 157.5 cm; Wt 56.4 kg
--- NOTE | ~2017-07-30 | HEMODYNAMI ---
PATIENT:FUNMILAYO ALEGRE MEDICAL RECORD: [id number] : 61 LOCATION:D.[facility] ADMISSION DATE: 07/30/17 Generatedon:07/30/201714:55 Patient name: FUNMILAYO ALEGRE Patient #: [id number] SSN: : 1965 Date of study: Page: Of Hemodynamic Procedure Report Patient Data Patient Demographics Procedure consent was obtained First Name: FUNMILAYO Gender: Female Last Name: CODEY : 1965 Middle Initial: A Age: 51 year(s) Patient #: [id number] Race: Unknown Additional ID: [id number] Contact details Address: [address] [place] [address] [address] State: [place] City: [facility] [place] Zip code: [address] Admission Admission Data Admission Date: 07/30/2017 Admission Time: 12:04 Procedure Procedure Types Cath Procedure Diagnostic Procedure ANISH Procedure Description Procedure Staff Name Function Stepan Black MD Performing Physician Irving Wilburn Director Of Marketing And Promotions Hui Uribe RT Monitor Jose Alejandro Mcneil RN Nurse Gosia Diaz CRNA Additional personnel Procedure Data Procedure Complications No complications Procedure Medications Medication Administration Route Dosage Oxygen NC 2 l/min Hurricaine [place] P.O. 1 Sprays Refer to Anesthesia Notes for Sedation Medications Hemodynamics Rest Pre Cath Intra NCS Post Cath Vital Signs Time Heart Resp SPO2 NIBP Rhythm Pain Sedation Rate (ipm) (%) (mmHg) Status Level (bpm) 14:30:46 62 16 97 117/76(87) NSR 0 (11) 10(A) , No pain 14:34:52 62 16 98 121/73(93) NSR 0 (11) 10(A) , No pain 14:39:02 67 18 97 99/66(76) NSR 0 (11) 9(A) , No pain 14:43:06 68 16 99 95/61(73) NSR 0 (11) 8(A) , No pain 14:47:09 65 15 99 89/52(65) NSR 0 (11) 9(A) , No pain 14:50:20 64 19 98 90/51(71) NSR 0 (11) 9(A) , No pain 14:54:22 65 22 98 97/54(82) NSR 0 (11) 10(A) , No pain Medications Time Medication Route Dose Verified Delivered Reason Notes Effective ness by by 14:33:21 Oxygen NC 2 Stepan Blount used for l/min [facility] Mcneil RN procedure MD 14:33:31 Hurricaine P[address]O. 1 Stepan Blount Per [place] Sprays [facility] Anderson Mcneil RN physician 14:33:35 Refer to Stepan Blount Anesthesia [facility] Anderson Mcneil RN Notes for Sedation Medications Procedure Log Time Note 14:10:11 Jose Alejandro Mcneil RN sent for patient. Start room use. 14:10:12 Time tracking: Regular hours 14:10:15 Plan of Care:Hemodynamics will remain stable., Cardiac rhythm will remain stable., Comfort level will be maintained., Respiratory function will remain adequate., Patient/ family verbilizes understanding of procedure., Procedure tolerated without complication., Recovers from procedure without complications.. 14:29:37 Warm blankets applied, and cyrus hugger turned on for patient comfort. 14:29:37 Correct patient and procedure confirmed by team. 14:29:39 Signed procedure consent form obtained from patient. 14:29:46 Patient arrived from Pre/Post Procedure Room to [facility] 2. Patient remains on bed/stretcher for procedure. 14:29:47 ECG and BP/O2 sat monitors applied to patient. 14:29:48 Vital chart was started 14:29:51 Rhythm: sinus rhythm 14:29:53 Full Disclosure recording started 14:30:51 H&P Date Dictated: 07/30/2017 Within 30 days and on chart., H&P Addendum completed by physician on day of procedure. (MUST COMPLETE FOR ALL OUTPATIENTS). 14:30:52 Pre-procedure instructions explained to patient. 14:30:52 Pre-op teaching completed and patient verbalized understanding. 14:30:54 Family in patients room. 14:30:56 Patient NPO since Midnight. 14:31:00 Is the patient allergic to Iodine/contrast media? No. 14:31:02 Is patient on blood thinner?No 14:31:03 Patient diabetic? No. 14:31:05 ----Pre-sedation anethsthesia assessment.---- 14:31:21 SEE ANESTHESIA NOTE FOR ASSESSMENT 14:31:25 Patient pain scale 0/10 ?. 14:31:32 IV patent on arrival in right antecubital with 0.9% NaCl at O. 14:31:36 Lab results completed and on chart. 14:31:38 Alarms reviewed by Dustin Urena 14:31:44 Gosia Diaz CRNA present and monitoring patient for TIVA. 14:31:57 Irving Wilburn Missile Facilities Repairer present for ANISH. 14:33:06 Final Timeout: patient, procedure, and site verified with staff and physician. All members of the team are in agreement. 14:33:12 Physical assessment completed. ASA score P 2 - A patient with mild systemic disease as per Stepan Black MD. 14:33:15 Sedation plan: TIVA Medication:Propofol 14:33:21 Oxygen 2 l/min NC was administered by Jose Alejandro Mcneil RN; used for procedure; 14:33:31 Hurricaine [place] 1 Sprays P.O. was administered by Jose Alejandro Mcneil RN; Per physician; 14:33:35 Refer to Anesthesia Notes for Sedation Medications was administered by Jose Alejandro Mcneil RN; ; 14:36:36 ANISH started. 14:42:44 ANISH completed. 14:42:47 Procedure ended.(Physican Out) 14:43:06 Post-procedure physical assessment completed. ASA score P 2 - A patient with mild systemic disease as per Stepan Black MD. 14:43:09 Post procedure rhythm: unchanged. 14:43:10 Post procedure instruction explained to patient.Patient verbalizes understanding. 14:43:11 Patient needs reinforcement of post procedure teaching. 14:43:17 Procedure Complication : No complications 14:43:19 See physician's report for complete and final results. 14:43:34 Procedure and supply charges have been captured, reviewed, submitted and are correct. 14:53:07 Report given to Pre/Post Procedure Room. 14:54:59 Vital chart was stopped 14:55:01 Patient transfered to Pre/Post Procedure Room with Stretcher. 14:55:09 End room use (Document Last) Signature Audit [place] Stage Time Signature Unsigned Intra-Procedure 07/30/2017 Hui 2:55:18 PM Counts RT(R) Signatures Monitor : Hui Signature : Counts RT Date : Time : [address] [place] [address]
[2017-07-30] MEDS ORDERED: QVAR8.7 G1 INH (12:15)
[2017-07-30 12:20] VITALS: Ht 157.5 cm; Wt 56.4 kg
[2017-07-30 13:11] LABS: ALBUMIN 3.7 g/dL (3.4-5.0); ANION GAP 12.7 mmol/L (8-16); BILIRUBIN - TOTAL 0.38 mg/dL (0.2-1.3); CALCIUM 9.2 mg/dL (8.5-10.1); CARBON DIOXIDE 29.3 mmol/L (21.0-32.0); CREATININE - SERUM 0.9 mg/dL (0.6-1.3); PROTEIN - SERUM 7.2 g/dL (6.4-8.2)
[2017-07-30 13:30] LABS: BASOPHILS 0.2 % (0-2); EOSINOPHILS 3.8 % (0-7); HEMATOCRIT 41.5 % (36.0-48.0); HEMOGLOBIN 14.1 g/dL (12-16); IMMATURE GRANULOCYTES 0.2 % (0-5); LYMPHOCYTES 21.9 % (15-50); MCV 88.3 fL (80.0-100.0); MEAN PLATELET VOLUME 9.9 fL (7.4-10.4); MONOCYTES 5.1 % (2-11); NEUTROPHILS 68.8 % (40-80); PLATELET COUNT 213 10x3/uL (130-400); RDW 12.4 % (11.5-14.5); WBC 10.2 10x3/uL (4.8-10.8)
--- NOTE | 2017-07-30 15:15 | NUR ---
RESTING QUIETLY WITH EYES CLOSED. 2L NC, NO RESP DISTRESS. VSS. NO C/O NAUSEA. FAMILY AT BEDSIDE, CALL LIGHT WITHIN REACH.
--- NOTE | 2017-07-30 15:45 | NUR ---
RIGHT AC PIV D/C'D WITH CATHETER INTACT, BAND AID TO SITE. AMBULATED TO RESTROOM TO VOID.
--- NOTE | 2017-07-30 15:52 | NUR ---
DISCHARGE INSTRUCTIONS GIVEN, VERBALIZED UNDERSTANDING.
--- NOTE | 2017-07-30 16:00 | NUR ---
TAKEN OUT VIA WHEELCHAIR BY CATH FAITH DOCTOR. LEFT FACILITY WITH FAMILY AND ALL PERSONAL BELONGINGS.
--- NOTE | 2017-08-05 13:31 | TEE ---
PATIENT:FUNMILAYO ALEGRE MEDICAL RECORD: [id number] LOCATION:D[facility] AGE OF PATIENT: 51 ADMISSION DATE: 07/30/17 SEX: F REFERRING PHYSICIAN: INTERPRETING PHYSICIAN: PERRY GAUTAM MD TRANSESOPHAGEAL ECHOCARDIOGRAM ANISH CHARGE Y INDICATIONS: ASSESS MITRAL REGURG PREMEDICATIONS: PATIENT'S RESPONSE PROCEDURE DOPPLER MEASUREMENTS: LVIT LA PA RA LVOT RVOT Asc. Ao AV Gradient Peak AV Mean AV Area MV Gradient Peak MV Mean MV Area INTERPRETATION: Doppler: 2-D: DILATED RIGHT HEART, MV REPAIR NOTED COLOR FLOW DOPPLER MILD MR, MODERATE TR NORMAL SALINE STUDY: MISCELLANOUS: DIAGNOSIS: PLAN: Camera Mechanic:3 Dr. Black Rope Walker: Jeffrey WARD COMMENTS: PATIENT OF DR. BERMEO DATE OF SERVICE: 07/30/2017 TRANSESOPHAGEAL NOTE DESCRIPTION OF PROCEDURE: After general sedation via TIVA via anesthesia, transesophageal Omniplane probe was placed without difficulty. FINDINGS: No LVH. LV internal dimensions are normal. Wall motion is normal. EF is greater than 55%. Aortic valve is well visualized, tricuspid with good TRANSESOPHAGEAL ECHOCARDIOGRAM REPORT [id number] FUNMILAYO ALEGRE valve excursion. No AI. Left atrium grossly appears of normal dimensions. Left atrial appendage appears normal with good contractility. Valvular ring for mitral valve repair is noted. The valve shows adequate excursion and only mild plus MR color flow imaging. Right-sided chambers appear significantly dilated with moderate TR color flow imaging. At the end of the procedure, the probe was turned posteriorly and this showed minimal atherosclerotic debris in the descending aorta. TRANSINT:[id number] Voice Confirmation ID: [id number] DOCUMENT ID: [id number] at 1331 CC: [id number] DICTATION DATE: 07/30/17 1450 PATIENT'S LIBRARIAN: 07/30/17 1541 DEP CLI 07/30/17 [place] [id number] [place] [address]
== END 2017-07-30 16:00 | disposition home or self-care (01) ==
LOC: D.CATH 12:04
PROVIDERS: Internal Medicine Cardiovascular Disease
DX: I34.0 Nonrheumatic mitral (valve) insufficiency (principal); F17.200 Nicotine dependence, unspecified, uncomplicated; J45.909 Unspecified asthma, uncomplicated; I25.10 Atherosclerotic heart disease of native coronary artery without angina pectoris; I10 Essential (primary) hypertension; K21.9 Gastro-esophageal reflux disease without esophagitis; Z01.812 Encounter for preprocedural laboratory examination

== ENCOUNTER 2017-08-17 18:22 | Emergency (ER) | payer MEDICARE, MEDICAID ==
[2017-07-30 12:20] VITALS: BMI 22.7
[~2017-08-17 18:22] MED LIST changes: +QVAR8.7 G1 INH
== END 2017-08-17 20:39 | disposition home or self-care (01) ==
LOC: D.ER 18:22
DX: R07.89 Other chest pain (principal); K21.9 Gastro-esophageal reflux disease without esophagitis; J44.9 Chronic obstructive pulmonary disease, unspecified; I10 Essential (primary) hypertension; F17.200 Nicotine dependence, unspecified, uncomplicated

== ENCOUNTER 2017-08-19 17:06 | Emergency (ER) | payer MEDICARE, MEDICAID ==
[2017-07-30 12:20] VITALS: BMI 22.7
== END 2017-08-19 20:57 | disposition home or self-care (01) ==
LOC: D.ER 17:06
DX: M94.0 Chondrocostal junction syndrome [Tietze] (principal); J44.9 Chronic obstructive pulmonary disease, unspecified; K21.9 Gastro-esophageal reflux disease without esophagitis; I10 Essential (primary) hypertension; F17.200 Nicotine dependence, unspecified, uncomplicated

== ENCOUNTER 2017-08-21 23:54 | Emergency (ER) | payer MEDICARE, MEDICAID ==
[2017-07-30 12:20] VITALS: BMI 22.7
== END 2017-08-22 01:42 | disposition home or self-care (01) ==
LOC: D.ER 23:54
DX: J44.1 Chronic obstructive pulmonary disease with (acute) exacerbation (principal); M94.0 Chondrocostal junction syndrome [Tietze]; K21.9 Gastro-esophageal reflux disease without esophagitis; I10 Essential (primary) hypertension; F17.200 Nicotine dependence, unspecified, uncomplicated

== ENCOUNTER 2017-08-29 18:43 | Emergency (ER) | payer MEDICARE, MEDICAID ==
[2017-07-30 12:20] VITALS: BMI 22.7
[2017-08-30] MEDS ORDERED: TRAZODONE HCL150 MG PO (21:19)
== END 2017-08-29 19:56 | disposition home or self-care (01) ==
LOC: D.ER 18:43
DX: R07.81 Pleurodynia (principal); R05 Cough; J44.9 Chronic obstructive pulmonary disease, unspecified; I10 Essential (primary) hypertension; K21.9 Gastro-esophageal reflux disease without esophagitis; F17.200 Nicotine dependence, unspecified, uncomplicated

== ENCOUNTER 2017-08-30 00:01 | Observation (INO) | payer MEDICARE, MEDICAID ==
[2017-08-30] VITALS (22 sets, daily range): BP systolic 114–162; BP diastolic 71–94; BMI 21.4
[~2017-08-30] VITALS: Ht 157.5 cm; Wt 56.0 kg
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
[2017-08-30 00:30] LABS: BASOPHILS 0.3 % (0-2); EOSINOPHILS 5.4 % (0-7); HEMATOCRIT 41.3 % (36.0-48.0); IMMATURE GRANULOCYTES 0.1 % (0-5); MCH 29.7 pg (26.0-34.0); MCHC 33.9 g/dL (31.0-37.0); MCV 87.7 fL (80.0-100.0); MEAN PLATELET VOLUME 9.6 fL (7.4-10.4); MONOCYTES 7.8 % (2-11); NEUTROPHILS 46.4 % (40-80); PLATELET COUNT 253 10x3/uL (130-400); RBC 4.71 10x6/uL (4.00-5.40); WBC 7.2 10x3/uL (4.8-10.8)
[2017-08-30 00:31] LABS: APPEARANCE CLEAR (CLEAR); BILIRUBIN NEGATIVE (NEGATIVE); COLOR YELLOW (YELLOW); GLUCOSE NEGATIVE (NEGATIVE); KETONE SMALL mg/dL (NEGATIVE); NITRITE NEGATIVE (NEGATIVE); PROTEIN NEGATIVE (NEGATIVE); SPECIFIC GRAVITY 1.015 (1.005-1.020); UROBILINOGEN NORMAL (NORMAL)
[2017-08-30 00:34] LABS: HCG SERUM NEGATIVE (NEGATIVE)
[2017-08-30 00:47] LABS: UDS - AMPHET NEGATIVE QUAL (NEGATIVE); UDS - BARB NEGATIVE QUAL (NEGATIVE); UDS - BENZO POSITIVE QUAL (NEGATIVE); UDS - COCAINE NEGATIVE QUAL (NEGATIVE); UDS - OPIATE NEGATIVE QUAL (NEGATIVE); UDS - PCP NEGATIVE QUAL (NEGATIVE); UDS - THC POSITIVE QUAL (NEGATIVE)
[2017-08-30 00:50] LABS: ALBUMIN 3.9 g/dL (3.4-5.0); ANION GAP 14.4 mmol/L (8-16); BILIRUBIN - TOTAL 0.3 mg/dL (0.2-1.3); CALCIUM 9.1 mg/dL (8.5-10.1); CREATININE - SERUM 0.9 mg/dL (0.6-1.3); POTASSIUM - SERUM 3.4 mmol/L (3.5-5.1); PROTEIN - SERUM 7.6 g/dL (6.4-8.2)
[2017-08-30] MEDS ORDERED: TRAZODONE HCL150 MG PO (21:19)
[2017-08-31] VITALS (9 sets, daily range): BP systolic 149–162; BP diastolic 76–89; Ht 157.5 cm; Wt 56.0 kg
== END 2017-08-31 15:39 | disposition home or self-care (01) ==
LOC: D.ER 00:01 → D.ICU 07:57 → OBSVTIME 07:57 → D.ICU 07:57
PROVIDERS: Emergency Medicine
DX: T44.7X2A Poisoning by beta-adrenoreceptor antagonists, intentional self-harm, initial encounter (principal); F43.12 Post-traumatic stress disorder, chronic; X58.XXXA Exposure to other specified factors, initial encounter; F32.9 Major depressive disorder, single episode, unspecified; F41.1 Generalized anxiety disorder; F12.90 Cannabis use, unspecified, uncomplicated; I10 Essential (primary) hypertension; Z72.0 Tobacco use; Z86.73 Personal history of transient ischemic attack (TIA), and cerebral infarction without residual deficits; R05 Cough

== ENCOUNTER 2017-09-23 18:19 | Emergency (ER) | payer MEDICARE, MEDICAID ==
[2017-08-31 10:39] VITALS: BMI 22.5
[2017-09-23 19:51] LABS: APPEARANCE CLEAR (CLEAR); BILIRUBIN NEGATIVE (NEGATIVE); COLOR YELLOW (YELLOW); GLUCOSE NEGATIVE (NEGATIVE); KETONE NEGATIVE (NEGATIVE); NITRITE NEGATIVE (NEGATIVE); PROTEIN NEGATIVE (NEGATIVE); SPECIFIC GRAVITY 1.015 (1.005-1.020); UROBILINOGEN NORMAL (NORMAL)
[2017-09-23 19:57] LABS: BASOPHILS 0.3 % (0-2); EOSINOPHILS 4.9 % (0-7); HEMATOCRIT 39.5 % (36.0-48.0); HEMOGLOBIN 13.4 g/dL (12-16); LYMPHOCYTES 46.3 % (15-50); MCH 30.1 pg (26.0-34.0); MCHC 33.9 g/dL (31.0-37.0); MCV 88.8 fL (80.0-100.0); MEAN PLATELET VOLUME 9.3 fL (7.4-10.4); MONOCYTES 5.9 % (2-11); NEUTROPHILS 42.6 % (40-80); RBC 4.45 10x6/uL (4.00-5.40); RDW 12.9 % (11.5-14.5); WBC 7.6 10x3/uL (4.8-10.8)
[2017-09-23 19:58] LABS: PLATELET COUNT 189 10x3/uL (130-400)
[2017-09-23 20:21] LABS: ALBUMIN 4.2 g/dL (3.4-5.0); ALKALINE PHOSPHATASE 104 U/L (46-116); ALT (SGPT) 19 U/L (10-68); CALC OSMOLALITY 277 mosm/kg (275-300); CALCIUM 9.2 mg/dL (8.5-10.1); CARBON DIOXIDE 29.7 mmol/L (21.0-32.0); CHLORIDE - SERUM 104 mmol/L (98-107); CREATININE - SERUM 0.7 mg/dL (0.6-1.3); GLUCOSE 92 mg/dL (74-106); POTASSIUM - SERUM 3.7 mmol/L (3.5-5.1); PROTEIN - SERUM 7.6 g/dL (6.4-8.2); SODIUM 140 mmol/L (136-145); UREA NITROGEN 11 mg/dL (7-18); eGFR NON AFRICAN AMERICAN > 90 mL/min (90-120)
== END 2017-09-23 21:00 | disposition home or self-care (01) ==
LOC: D.ER 18:19
PROVIDERS: Emergency Medicine
DX: R42 Dizziness and giddiness (principal); F17.200 Nicotine dependence, unspecified, uncomplicated

== ENCOUNTER 2017-10-07 11:58 | Emergency (ER) | payer MEDICARE, MEDICAID ==
[2017-08-31 10:39] VITALS: BMI 22.5
[2017-10-07 13:09] LABS: BASOPHILS 0.1 % (0-2); EOSINOPHILS 0.6 % (0-7); HEMATOCRIT 40.3 % (36.0-48.0); HEMOGLOBIN 13.6 g/dL (12-16); IMMATURE GRANULOCYTES 0.2 % (0-5); LYMPHOCYTES 27.1 % (15-50); MCH 29.8 pg (26.0-34.0); MCHC 33.7 g/dL (31.0-37.0); MCV 88.2 fL (80.0-100.0); MEAN PLATELET VOLUME 9.5 fL (7.4-10.4); MONOCYTES 3.7 % (2-11); NEUTROPHILS 68.3 % (40-80); PLATELET COUNT 199 10x3/uL (130-400); RBC 4.57 10x6/uL (4.00-5.40); RDW 13.3 % (11.5-14.5); WBC 8.7 10x3/uL (4.8-10.8)
[2017-10-07 13:35] LABS: ALBUMIN 4.3 g/dL (3.4-5.0); ALKALINE PHOSPHATASE 98 U/L (46-116); ALT (SGPT) 21 U/L (10-68); BILIRUBIN - TOTAL 0.46 mg/dL (0.2-1.3); CALC OSMOLALITY 276 mosm/kg (275-300); CARBON DIOXIDE 26.5 mmol/L (21.0-32.0); CHLORIDE - SERUM 104 mmol/L (98-107); CREATININE - SERUM 0.7 mg/dL (0.6-1.3); GLUCOSE 95 mg/dL (74-106); POTASSIUM - SERUM 3.9 mmol/L (3.5-5.1); PROTEIN - SERUM 7.9 g/dL (6.4-8.2); SODIUM 140 mmol/L (136-145); UREA NITROGEN 7 mg/dL (7-18); eGFR NON AFRICAN AMERICAN > 90 mL/min (90-120)
[2017-10-07 13:45] LABS: APPEARANCE HAZY (CLEAR); COLOR DK YELLOW (YELLOW); NITRITE NEGATIVE (NEGATIVE)
[2017-10-07 13:46] LABS: AMORPHOUS SEDIMENT <1+ /lpf (NONE SEEN); BACTERIA MANY /hpf (NONE SEEN); BILIRUBIN NEGATIVE (NEGATIVE); CALCIUM OXALATE CRYSTALS 0-5 /hpf (NONE SEEN); EPITHELIAL CELLS 0-5 /hpf (0-5); GLUCOSE NEGATIVE (NEGATIVE); KETONE NEGATIVE (NEGATIVE); MUCUS <1+ /lpf (NONE SEEN); PROTEIN NEGATIVE (NEGATIVE); UROBILINOGEN NORMAL (NORMAL); WHITE CELLS - URINE 0-5 /hpf (0-5)
== END 2017-10-07 17:06 | disposition home or self-care (01) ==
LOC: D.ER 11:58
PROVIDERS: Emergency Medicine
DX: K29.00 Acute gastritis without bleeding (principal); K21.9 Gastro-esophageal reflux disease without esophagitis; F17.200 Nicotine dependence, unspecified, uncomplicated

== ENCOUNTER → 2017-10-27 19:28 | Emergency (ER) | payer MEDICARE, MEDICAID ==
[2017-08-31 10:39] VITALS: BMI 22.5
== END | disposition left against medical advice (07) ==
LOC: D.ER 19:28
DX: R50.9 Fever, unspecified (principal); R07.81 Pleurodynia; R51 Headache

== ENCOUNTER 2017-11-22 18:16 | Emergency (ER) | payer MEDICARE, MEDICAID ==
[2017-08-31 10:39] VITALS: BMI 22.5
[2017-11-22 19:22] LABS: BASOPHILS 0.5 % (0-2); EOSINOPHILS 6.7 % (0-7); HEMATOCRIT 36.7 % (36.0-48.0); HEMOGLOBIN 12.4 g/dL (12-16); IMMATURE GRANULOCYTES 0.2 % (0-5); LYMPHOCYTES 47.6 % (15-50); MCH 30.6 pg (26.0-34.0); MCHC 33.8 g/dL (31.0-37.0); MCV 90.6 fL (80.0-100.0); MEAN PLATELET VOLUME 9.7 fL (7.4-10.4); MONOCYTES 6.2 % (2-11); NEUTROPHILS 38.8 % (40-80); PLATELET COUNT 205 10x3/uL (130-400); RBC 4.05 10x6/uL (4.00-5.40); RDW 13.9 % (11.5-14.5); WBC 6.3 10x3/uL (4.8-10.8)
[2017-11-22 19:31] LABS: INR 1.05 (0.85-1.17); PROTIME 13.3 SECONDS (11.6-15.0)
[2017-11-22 19:47] LABS: ALBUMIN 3.8 g/dL (3.4-5.0); ALKALINE PHOSPHATASE 91 U/L (46-116); ALT (SGPT) 20 U/L (10-68); CALC OSMOLALITY 276 mosm/kg (275-300); CALCIUM 8.6 mg/dL (8.5-10.1); CARBON DIOXIDE 25.5 mmol/L (21.0-32.0); CHLORIDE - SERUM 104 mmol/L (98-107); CREATININE - SERUM 0.8 mg/dL (0.6-1.3); GLUCOSE 89 mg/dL (74-106); POTASSIUM - SERUM 3.8 mmol/L (3.5-5.1); PROTEIN - SERUM 7.4 g/dL (6.4-8.2); SODIUM 140 mmol/L (136-145); UREA NITROGEN 11 mg/dL (7-18); eGFR NON AFRICAN AMERICAN 79 mL/min (90-120)
[2017-11-22 20:00] LABS: APPEARANCE CLEAR (CLEAR); BILIRUBIN NEGATIVE (NEGATIVE); COLOR YELLOW (YELLOW); GLUCOSE NEGATIVE (NEGATIVE); KETONE NEGATIVE (NEGATIVE); NITRITE NEGATIVE (NEGATIVE); PH 7.5 (5.0-6.0); PROTEIN NEGATIVE (NEGATIVE); UROBILINOGEN NORMAL (NORMAL)
[2017-11-22 20:00] LABS: CHOL - HDL RATIO 4.9 ratio (2.3-4.1); CHOLESTEROL, TOTAL 190 mg/dL (0-200); CKMB 0.2 U/L (0.0-3.6); CREATINE KINASE 76 UL (21-215); HDL CHOLESTEROL 39 mg/dL (32-96); LDL CHOLESTEROL 111 mg/dL (0-100); LDL-HDL RATIO 2.8 ratio (1.5-3.5); TRIGLYCERIDE 203 mg/dL (30-200)
[2017-11-22 20:01] LABS: TROPONIN-I < 0.017 ng/mL (0.000-0.060)
[2017-11-22 22:38] LABS: ERYTHROCYTE SEDIMENTATION RATE 12 mm/hr (0-30)
== END 2017-11-23 | disposition home or self-care (01) ==
LOC: D.ER 18:16
PROVIDERS: Family Medicine; Nurse Practitioner Family
DX: M54.9 Dorsalgia, unspecified (principal); M25.50 Pain in unspecified joint; Z87.81 Personal history of (healed) traumatic fracture; K21.9 Gastro-esophageal reflux disease without esophagitis; J44.9 Chronic obstructive pulmonary disease, unspecified

== ENCOUNTER 2017-12-06 20:28 | Emergency (ER) | payer MEDICARE, MEDICAID ==
[2017-08-31 10:39] VITALS: BMI 22.5
[2017-12-06 20:55] LABS: BASOPHILS 0.5 % (0-2); EOSINOPHILS 5.3 % (0-7); HEMATOCRIT 39.7 % (36.0-48.0); HEMOGLOBIN 13.4 g/dL (12-16); IMMATURE GRANULOCYTES 0.2 % (0-5); LYMPHOCYTES 52.2 % (15-50); MCHC 33.8 g/dL (31.0-37.0); MCV 91.9 fL (80.0-100.0); MEAN PLATELET VOLUME 9.7 fL (7.4-10.4); NEUTROPHILS 34.8 % (40-80); PLATELET COUNT 202 10x3/uL (130-400); RBC 4.32 10x6/uL (4.00-5.40); WBC 6.6 10x3/uL (4.8-10.8)
[2017-12-06 21:09] LABS: ALKALINE PHOSPHATASE 95 U/L (46-116); ALT (SGPT) 27 U/L (10-68); BILIRUBIN - TOTAL 0.35 mg/dL (0.2-1.3); CALC OSMOLALITY 283 mosm/kg (275-300); CALCIUM 8.6 mg/dL (8.5-10.1); CARBON DIOXIDE 21.8 mmol/L (21.0-32.0); CHLORIDE - SERUM 106 mmol/L (98-107); CREATININE - SERUM 0.8 mg/dL (0.6-1.3); GLUCOSE 101 mg/dL (74-106); POTASSIUM - SERUM 3.4 mmol/L (3.5-5.1); SODIUM 143 mmol/L (136-145); UREA NITROGEN 9 mg/dL (7-18); eGFR NON AFRICAN AMERICAN 79 mL/min (90-120)
[2017-12-06 21:19] LABS: CHOL - HDL RATIO 4.7 ratio (2.3-4.1); CHOLESTEROL, TOTAL 198 mg/dL (0-200); CKMB 0.3 U/L (0.0-3.6); CREATINE KINASE 98 UL (21-215); HDL CHOLESTEROL 42 mg/dL (32-96); LDL CHOLESTEROL 100 mg/dL (0-100); LDL-HDL RATIO 2.4 ratio (1.5-3.5); TRIGLYCERIDE 284 mg/dL (30-200)
[2017-12-06 21:23] LABS: TROPONIN-I < 0.017 ng/mL (0.000-0.060)
== END 2017-12-06 22:48 | disposition home or self-care (01) ==
LOC: D.ER 20:28
PROVIDERS: Family Medicine
DX: R07.89 Other chest pain (principal); F17.200 Nicotine dependence, unspecified, uncomplicated; J44.9 Chronic obstructive pulmonary disease, unspecified; K21.9 Gastro-esophageal reflux disease without esophagitis

== ENCOUNTER 2017-12-25 14:16 | Emergency (ER) | payer MEDICARE, MEDICAID ==
[2017-08-31 10:39] VITALS: BMI 22.5
== END 2017-12-25 15:44 | disposition home or self-care (01) ==
LOC: D.ER 14:16
DX: J02.9 Acute pharyngitis, unspecified (principal); Z76.0 Encounter for issue of repeat prescription; J44.9 Chronic obstructive pulmonary disease, unspecified; K21.9 Gastro-esophageal reflux disease without esophagitis

== ENCOUNTER 2018-01-06 21:39 | Emergency (ER) | payer MEDICARE, MEDICAID ==
[2017-08-31 10:39] VITALS: BMI 22.5
== END 2018-01-06 23:09 | disposition home or self-care (01) ==
LOC: D.ER 21:39
DX: S41.012A Laceration without foreign body of left shoulder, initial encounter (principal); W26.9XXA Contact with unspecified sharp object(s), initial encounter; Y93.89 Activity, other specified; Y92.019 Unspecified place in single-family (private) house as the place of occurrence of the external cause; F17.200 Nicotine dependence, unspecified, uncomplicated

== ENCOUNTER 2018-01-10 12:56 | Emergency (ER) | payer MEDICARE, MEDICAID ==
[2017-08-31 10:39] VITALS: BMI 22.5
== END 2018-01-10 14:24 | disposition home or self-care (01) ==
LOC: D.ER 12:56
DX: S22.32XA Fracture of one rib, left side, initial encounter for closed fracture (principal); W22.8XXA Striking against or struck by other objects, initial encounter; Y93.89 Activity, other specified; Y92.019 Unspecified place in single-family (private) house as the place of occurrence of the external cause; J44.9 Chronic obstructive pulmonary disease, unspecified; K21.9 Gastro-esophageal reflux disease without esophagitis

== ENCOUNTER 2018-01-14 15:15 | Emergency (ER) | payer MEDICARE, MEDICAID ==
[~2018-01-14] VITALS: Ht 157.5 cm; Wt 56.4 kg
[2018-01-14 15:38] VITALS: Ht 157.5 cm; Wt 56.4 kg
[2018-01-14 17:14] VITALS: BP 122/068
== END 2018-01-14 17:14 | disposition home or self-care (01) ==
LOC: D.ER 15:15
DX: S41.012D Laceration without foreign body of left shoulder, subsequent encounter (principal); X58.XXXD Exposure to other specified factors, subsequent encounter; Z48.02 Encounter for removal of sutures; I69.851 Hemiplegia and hemiparesis following other cerebrovascular disease affecting right dominant side; H54.40 Blindness, one eye, unspecified eye; I10 Essential (primary) hypertension; Z85.43 Personal history of malignant neoplasm of ovary; Z85.42 Personal history of malignant neoplasm of other parts of uterus; Z85.038 Personal history of other malignant neoplasm of large intestine; Z85.028 Personal history of other malignant neoplasm of stomach; F17.200 Nicotine dependence, unspecified, uncomplicated

== ENCOUNTER 2018-02-09 16:26 | Emergency (ER) | payer MEDICARE, MEDICAID ==
[~2018-02-09] VITALS: Ht 157.5 cm; Wt 57.3 kg
[2018-02-09 18:11] VITALS: Ht 157.5 cm; Wt 57.3 kg
[2018-02-09 18:55] LABS: BASOPHILS 0.5 % (0-2); EOSINOPHILS 11.7 % (0-7); HEMATOCRIT 33.9 % (36.0-48.0); HEMOGLOBIN 11.2 g/dL (12-16); IMMATURE GRANULOCYTES 0.2 % (0-5); LYMPHOCYTES 36.9 % (15-50); MCH 29.4 pg (26.0-34.0); MEAN PLATELET VOLUME 8.8 fL (7.4-10.4); MONOCYTES 9.7 % (2-11); RBC 3.81 10x6/uL (4.00-5.40); RDW 13.6 % (11.5-14.5); WBC 6.5 10x3/uL (4.8-10.8)
[2018-02-09 18:56] LABS: PLATELET COUNT 338 10x3/uL (130-400)
[2018-02-09 19:03] LABS: INR 1.83 (0.85-1.17); PROTIME 20.6 SECONDS (11.6-15.0)
[2018-02-09 19:12] LABS: ALBUMIN 3.7 g/dL (3.4-5.0); ALKALINE PHOSPHATASE 135 U/L (46-116); ALT (SGPT) 13 U/L (10-68); BILIRUBIN - TOTAL 0.44 mg/dL (0.2-1.3); CALC OSMOLALITY 277 mosm/kg (275-300); CALCIUM 8.7 mg/dL (8.5-10.1); CARBON DIOXIDE 24.9 mmol/L (21.0-32.0); CHLORIDE - SERUM 105 mmol/L (98-107); CREATININE - SERUM 0.6 mg/dL (0.6-1.3); GLUCOSE 92 mg/dL (74-106); POTASSIUM - SERUM 3.8 mmol/L (3.5-5.1); PROTEIN - SERUM 8.1 g/dL (6.4-8.2); SODIUM 140 mmol/L (136-145); UREA NITROGEN 10 mg/dL (7-18); eGFR NON AFRICAN AMERICAN > 90 mL/min (90-120)
[2018-02-09 19:25] LABS: CKMB 0.4 U/L (0.0-3.6); CREATINE KINASE 44 UL (21-215); PRO BNP 475 pg/mL (0-125)
[2018-02-09] MEDS ORDERED: VISTARIL25 MG PO (19:54)
[2018-02-09 20:39] VITALS: BP 125/79
== END 2018-02-09 20:40 | disposition home or self-care (01) ==
LOC: D.ER 16:26
PROVIDERS: Family Medicine
DX: Z76.0 Encounter for issue of repeat prescription (principal); R07.81 Pleurodynia; M25.511 Pain in right shoulder; M54.6 Pain in thoracic spine; Z86.73 Personal history of transient ischemic attack (TIA), and cerebral infarction without residual deficits; I10 Essential (primary) hypertension

== ENCOUNTER 2018-03-26 20:19 | Emergency (ER) | payer MEDICARE, MEDICAID ==
[~2018-03-26] VITALS: Ht 157.5 cm; Wt 56.4 kg
[~2018-03-26 20:19] MED LIST changes: +VISTARIL25 MG PO
[2018-03-26 20:24] VITALS: Ht 157.5 cm; Wt 56.4 kg
[2018-03-26] MEDS ORDERED: LOPRESSOR25 MG PO (20:26)
[2018-03-26] MEDS ORDERED: COUMADIN1 MG (20:27)
[2018-03-26] MEDS ORDERED: HYDROCODON-ACE1 EAC7 PO (22:54)
[2018-03-26] MEDS ORDERED: CLEOCIN HCL300 MG PO (22:54)
[2018-03-26] MEDS ORDERED: POLYSPORIN OINT15 G1 TOPICAL (22:56)
[2018-03-26 23:28] VITALS: BP 126/70
== END 2018-03-26 23:26 | disposition home or self-care (01) ==
LOC: D.ER 20:19
DX: T23.101A Burn of first degree of right hand, unspecified site, initial encounter (principal); X08.8XXA Exposure to other specified smoke, fire and flames, initial encounter; Y93.89 Activity, other specified; Y92.019 Unspecified place in single-family (private) house as the place of occurrence of the external cause; I10 Essential (primary) hypertension; Z85.43 Personal history of malignant neoplasm of ovary; F17.200 Nicotine dependence, unspecified, uncomplicated

== ENCOUNTER 2018-03-31 13:17 | Emergency (ER) | payer MEDICARE, MEDICAID ==
[~2018-03-31] VITALS: Ht 157.5 cm; Wt 55.0 kg
[~2018-03-31 13:17] MED LIST changes: +CLEOCIN HCL300 MG PO; +COUMADIN1 MG; +HYDROCODON-ACE1 EAC7 PO; +LOPRESSOR25 MG PO; +POLYSPORIN OINT15 G1 TOPICAL
[2018-03-31 14:01] VITALS: Ht 157.5 cm; Wt 55.0 kg
[2018-03-31] MEDS ORDERED: VIBRAMYCIN 100100 MG PO (14:41)
[2018-03-31] MEDS ORDERED: VOLTAREN75 MG PO (14:41)
[2018-03-31 14:57] VITALS: BP 134/88
== END 2018-03-31 14:55 | disposition home or self-care (01) ==
LOC: D.ER 13:17
DX: L03.113 Cellulitis of right upper limb (principal); I10 Essential (primary) hypertension; Z85.43 Personal history of malignant neoplasm of ovary

== ENCOUNTER 2018-04-20 16:37 | Emergency (ER) | payer MEDICARE, MEDICAID ==
[~2018-04-20] VITALS: Ht 157.5 cm; Wt 54.5 kg
[~2018-04-20 16:37] MED LIST changes: +VIBRAMYCIN 100100 MG PO; +VOLTAREN75 MG PO
[2018-04-20 16:43] VITALS: Ht 157.5 cm; Wt 54.5 kg
[2018-04-20 17:59] LABS: HEMATOCRIT 37.4 % (36.0-48.0); HEMOGLOBIN 12.6 g/dL (12-16); MCH 28.3 pg (26.0-34.0); MCHC 33.7 g/dL (31.0-37.0); MCV 83.9 fL (80.0-100.0); MEAN PLATELET VOLUME 9.3 fL (7.4-10.4); RBC 4.46 10x6/uL (4.00-5.40); RDW 14.1 % (11.5-14.5); WBC 6.6 10x3/uL (4.8-10.8)
[2018-04-20 18:16] LABS: PLATELET COUNT 209 10x3/uL (130-400)
[2018-04-20 18:32] LABS: APTT 47.9 SECONDS (22.8-39.4); INR 3.55 (0.85-1.17); PROTIME 34.7 SECONDS (11.6-15.0)
[2018-04-20 18:33] LABS: ALBUMIN 3.7 g/dL (3.4-5.0); ALKALINE PHOSPHATASE 92 U/L (46-116); ALT (SGPT) 26 U/L (10-68); BILIRUBIN - TOTAL 0.26 mg/dL (0.2-1.3); CALC OSMOLALITY 282 mosm/kg (275-300); CALCIUM 8.3 mg/dL (8.5-10.1); CARBON DIOXIDE 27.1 mmol/L (21.0-32.0); CHLORIDE - SERUM 105 mmol/L (98-107); CREATININE - SERUM 0.7 mg/dL (0.6-1.3); GLUCOSE 91 mg/dL (74-106); POTASSIUM - SERUM 3.5 mmol/L (3.5-5.1); PROTEIN - SERUM 7.5 g/dL (6.4-8.2); SODIUM 143 mmol/L (136-145); UREA NITROGEN 6 mg/dL (7-18); eGFR NON AFRICAN AMERICAN > 90 mL/min (90-120)
[2018-04-20 18:49] LABS: CKMB 0.4 U/L (0.0-3.6); CREATINE KINASE 64 UL (21-215)
[2018-04-20 19:01] LABS: TROPONIN-I 0.075 ng/mL (0.000-0.060)
[2018-04-20 19:10] LABS: EOSINOPHILS 9 % (0-7); LYMPHOCYTES 46 % (15-50); MONOCYTES 4 % (2-11); NEUTROPHILS 41 % (40-80); PLATELET ESTIMATE NORMAL; POIKILOCYTOSIS OCC; POLYCHROMASIA OCC; TEAR DROP CELLS 1+
[2018-04-20 21:23] VITALS: BP 157/94
== END 2018-04-20 21:24 | disposition home or self-care (01) ==
LOC: D.ER 16:37
PROVIDERS: Family Medicine
DX: R51 Headache (principal); M79.1 Myalgia; Z95.2 Presence of prosthetic heart valve; Z95.1 Presence of aortocoronary bypass graft

== ENCOUNTER 2018-04-22 21:27 | Emergency (ER) | payer MEDICARE, MEDICAID ==
[~2018-04-22] VITALS: Ht 157.5 cm; Wt 54.1 kg
[2018-04-22 21:29] VITALS: Ht 157.5 cm; Wt 54.1 kg
[2018-04-22 23:15] VITALS: BP 124/72
== END 2018-04-22 23:15 | disposition home or self-care (01) ==
LOC: D.ER 21:27
DX: M79.605 Pain in left leg (principal); M79.604 Pain in right leg; I10 Essential (primary) hypertension; F17.200 Nicotine dependence, unspecified, uncomplicated

== ENCOUNTER → 2018-07-22 | Emergency (ER) | payer MEDICARE, MEDICAID ==
[2018-04-22 21:29] VITALS: BMI 21.8
== END | disposition home or self-care (01) ==
LOC: D.ER 17:11
DX: R04.0 Epistaxis (principal); Z79.01 Long term (current) use of anticoagulants

== ENCOUNTER 2018-08-03 18:28 | Emergency (ER) | payer MEDICARE, MEDICAID ==
[~2018-08-03] VITALS: Ht 157.5 cm; Wt 55.9 kg
[2018-08-03 18:56] VITALS: Ht 157.5 cm; Wt 55.9 kg
[2018-08-03 19:51] LABS: BASOPHILS 0.3 % (0-2); EOSINOPHILS 4.2 % (0-7); HEMATOCRIT 37.1 % (36.0-48.0); HEMOGLOBIN 12.4 g/dL (12-16); IMMATURE GRANULOCYTES 0.2 % (0-5); LYMPHOCYTES 34.6 % (15-50); MCH 30.4 pg (26.0-34.0); MCHC 33.4 g/dL (31.0-37.0); MCV 90.9 fL (80.0-100.0); MEAN PLATELET VOLUME 9.9 fL (7.4-10.4); MONOCYTES 7.9 % (2-11); NEUTROPHILS 52.8 % (40-80); PLATELET COUNT 202 10x3/uL (130-400); RBC 4.08 10x6/uL (4.00-5.40); RDW 14.2 % (11.5-14.5); WBC 6.2 10x3/uL (4.8-10.8)
[2018-08-03 20:30] LABS: APTT 71.6 SECONDS (22.8-39.4)
[2018-08-03 20:36] LABS: INR 7.33 (0.85-1.17); PROTIME 61.7 SECONDS (11.6-15.0)
[2018-08-03 21:29] VITALS: BP 132/77
== END 2018-08-03 21:29 | disposition home or self-care (01) ==
LOC: D.ER 18:28
PROVIDERS: Family Medicine
DX: R04.0 Epistaxis (principal); R74.8 Abnormal levels of other serum enzymes; Z79.01 Long term (current) use of anticoagulants; I10 Essential (primary) hypertension; F17.200 Nicotine dependence, unspecified, uncomplicated

== ENCOUNTER 2018-10-08 20:00 | Emergency (ER) | payer MEDICARE, MEDICAID ==
[~2018-10-08] VITALS: Ht 157.5 cm; Wt 60.5 kg
[2018-10-08 20:17] VITALS: Ht 157.5 cm; Wt 60.5 kg
[2018-10-08 20:45] LABS: BASOPHILS 0.4 % (0-2); EOSINOPHILS 6.2 % (0-7); HEMATOCRIT 40.5 % (36.0-48.0); HEMOGLOBIN 13.2 g/dL (12-16); LYMPHOCYTES 39.2 % (15-50); MCHC 32.6 g/dL (31.0-37.0); MEAN PLATELET VOLUME 9.8 fL (7.4-10.4); MONOCYTES 6.1 % (2-11); NEUTROPHILS 48.1 % (40-80); PLATELET COUNT 206 10x3/uL (130-400); RDW 13.1 % (11.5-14.5); WBC 7.9 10x3/uL (4.8-10.8)
[2018-10-08 20:49] LABS: APTT 42.6 SECONDS (22.8-39.4); INR 2.41 (0.85-1.17); PROTIME 25.6 SECONDS (11.6-15.0)
[2018-10-08 20:53] LABS: ALKALINE PHOSPHATASE 89 U/L (46-116); ALT (SGPT) 29 U/L (10-68); BILIRUBIN - TOTAL 0.19 mg/dL (0.2-1.3); CALC OSMOLALITY 281 mosm/kg (275-300); CALCIUM 8.6 mg/dL (8.5-10.1); CHLORIDE - SERUM 104 mmol/L (98-107); CREATININE - SERUM 0.8 mg/dL (0.6-1.3); GLUCOSE 94 mg/dL (74-106); PROTEIN - SERUM 7.6 g/dL (6.4-8.2); SODIUM 142 mmol/L (136-145); UREA NITROGEN 10 mg/dL (7-18); eGFR NON AFRICAN AMERICAN 79 mL/min (90-120)
[2018-10-08 22:25] VITALS: BP 133/75
== END 2018-10-08 22:25 | disposition home or self-care (01) ==
LOC: D.ER 20:00
PROVIDERS: Family Medicine
DX: H92.22 Otorrhagia, left ear (principal); Z79.01 Long term (current) use of anticoagulants

== ENCOUNTER 2019-01-09 02:56 | Emergency (ER) | payer MEDICARE, MEDICAID ==
[2019-01-09 03:01] VITALS: BMI 23.1
[2019-01-09 03:26] LABS: BASOPHILS 0.5 % (0-2); EOSINOPHILS 7.7 % (0-7); HEMATOCRIT 38.4 % (36.0-48.0); HEMOGLOBIN 12.8 g/dL (12-16); IMMATURE GRANULOCYTES 0.1 % (0-5); LYMPHOCYTES 36.7 % (15-50); MCH 29.3 pg (26.0-34.0); MCHC 33.3 g/dL (31.0-37.0); MCV 87.9 fL (80.0-100.0); MEAN PLATELET VOLUME 9.7 fL (7.4-10.4); MONOCYTES 10.2 % (2-11); NEUTROPHILS 44.8 % (40-80); PLATELET COUNT 171 10x3/uL (130-400); RBC 4.37 10x6/uL (4.00-5.40); RDW 12.8 % (11.5-14.5); WBC 7.4 10x3/uL (4.8-10.8)
[2019-01-09 03:40] LABS: ALBUMIN 3.4 g/dL (3.4-5.0); ALKALINE PHOSPHATASE 82 U/L (46-116); ALT (SGPT) 17 U/L (10-68); BILIRUBIN - TOTAL 0.27 mg/dL (0.2-1.3); CALC OSMOLALITY 284 mosm/kg (275-300); CALCIUM 8.3 mg/dL (8.5-10.1); CARBON DIOXIDE 29.4 mmol/L (21.0-32.0); CHLORIDE - SERUM 104 mmol/L (98-107); CREATININE - SERUM 0.8 mg/dL (0.6-1.3); GLUCOSE 113 mg/dL (74-106); POTASSIUM - SERUM 3.7 mmol/L (3.5-5.1); SODIUM 143 mmol/L (136-145); UREA NITROGEN 9 mg/dL (7-18); eGFR NON AFRICAN AMERICAN 79 mL/min (90-120)
[2019-01-09 03:41] LABS: APTT 58.2 SECONDS (22.8-39.4); INR 4.08 (0.85-1.17); PROTIME 38.8 SECONDS (11.6-15.0)
--- NOTE | 2019-01-09 03:43 | NUR ---
PATIENT DENIES ANY SUICIDAL THOUGHTS. SHE IS ALERT TO SELF, PLACE AND TIME.
[2019-01-09 03:51] LABS: CKMB 0.5 U/L (0.0-3.6); CREATINE KINASE 78 UL (21-215); PRO BNP 651 pg/mL (0-125); TROPONIN-I 0.034 ng/mL (0.000-0.060)
[2019-01-09] MEDS ORDERED: ALBUTEROL SULF8.5 GM INH (05:01)
[2019-01-09] MEDS ORDERED: MEDROL DOSE PACK4 MG PO (05:20)
[2019-01-09 06:10] VITALS: BP 156/84
== END 2019-01-09 06:11 | disposition home or self-care (01) ==
LOC: D.ER 02:56
PROVIDERS: Family Medicine
DX: R06.02 Shortness of breath (principal)

== ENCOUNTER 2019-01-22 22:21 | Emergency (ER) | payer MEDICARE, MEDICAID ==
[~2019-01-22] VITALS: Ht 157.5 cm; Wt 56.8 kg
[~2019-01-22 22:21] MED LIST changes: +ALBUTEROL SULF8.5 GM INH; +MEDROL DOSE PACK4 MG PO
[2019-01-22 22:29] VITALS: Ht 157.5 cm; Wt 56.8 kg
[2019-01-22 22:58] LABS: BASOPHILS 0.6 % (0-2); EOSINOPHILS 7.6 % (0-7); HEMATOCRIT 40.4 % (36.0-48.0); HEMOGLOBIN 13.7 g/dL (12-16); IMMATURE GRANULOCYTES 0.1 % (0-5); LYMPHOCYTES 39.6 % (15-50); MCH 29.2 pg (26.0-34.0); MCHC 33.9 g/dL (31.0-37.0); MCV 86.1 fL (80.0-100.0); MEAN PLATELET VOLUME 9.4 fL (7.4-10.4); MONOCYTES 7.6 % (2-11); NEUTROPHILS 44.5 % (40-80); PLATELET COUNT 198 10x3/uL (130-400); RBC 4.69 10x6/uL (4.00-5.40); RDW 13.4 % (11.5-14.5); WBC 6.7 10x3/uL (4.8-10.8)
[2019-01-22 23:02] LABS: INR 3.62 (0.85-1.17); PROTIME 35.2 SECONDS (11.6-15.0)
[2019-01-23 00:53] VITALS: BP 104/68
== END 2019-01-23 00:55 | disposition home or self-care (01) ==
LOC: D.ER 22:21
PROVIDERS: Emergency Medicine
DX: R04.0 Epistaxis (principal)

== ENCOUNTER 2019-03-10 15:44 | Emergency (ER) | payer MEDICARE, MEDICAID ==
[~2019-03-10] VITALS: Ht 157.5 cm; Wt 60.0 kg
[2019-03-10 15:46] VITALS: BP 133/91; Ht 157.5 cm; Wt 60.0 kg
[2019-03-10] MEDS ORDERED: LYRICA75 MG PO (15:51)
[2019-03-10] MEDS ORDERED: PROZAC20 MG PO (15:52)
[2019-03-10] MEDS ORDERED: ZOVIRAX800 MG PO (16:18)
== END 2019-03-10 17:51 | disposition home or self-care (01) ==
LOC: D.ER 15:44
DX: R21 Rash and other nonspecific skin eruption (principal)

== ENCOUNTER 2019-03-20 15:56 | Emergency (ER) | payer MEDICARE, MEDICAID ==
[~2019-03-20] VITALS: Ht 157.5 cm; Wt 60.0 kg
[~2019-03-20 15:56] MED LIST changes: +LYRICA75 MG PO; +PROZAC20 MG PO; +ZOVIRAX800 MG PO
[2019-03-20 16:01] VITALS: Ht 157.5 cm; Wt 60.0 kg
[2019-03-20] MEDS ORDERED: CYCLOCORT TOPICAL (17:07)
[2019-03-20 17:21] VITALS: BP 115/62
== END 2019-03-20 17:24 | disposition home or self-care (01) ==
LOC: D.ER 15:56
DX: L30.1 Dyshidrosis [pompholyx] (principal)

== ENCOUNTER → 2019-04-06 13:03 | Outpatient (CLI) | payer MEDICARE, MEDICAID ==
[2019-03-20 16:01] VITALS: BMI 24.2
[~2019-04-06 13:03] MED LIST changes: +CYCLOCORT TOPICAL
== END | disposition home or self-care (01) ==
LOC: D.US 13:03
PROVIDERS: ATTEND Internal Medicine Interventional Cardiology
DX: G45.9 Transient cerebral ischemic attack, unspecified (principal)

== ENCOUNTER 2019-04-12 13:26 | Emergency (ER) | payer MEDICARE, MEDICAID ==
[~2019-04-12] VITALS: Ht 157.5 cm; Wt 56.8 kg
[2019-04-12 13:49] VITALS: Ht 157.5 cm; Wt 56.8 kg
[2019-04-12 14:20] LABS: BASOPHILS 0.4 % (0-2); EOSINOPHILS 4.6 % (0-7); HEMATOCRIT 37.3 % (36.0-48.0); IMMATURE GRANULOCYTES 0.1 % (0-5); LYMPHOCYTES 35.6 % (15-50); MCHC 34.9 g/dL (31.0-37.0); MCV 83.1 fL (80.0-100.0); MEAN PLATELET VOLUME 9.1 fL (7.4-10.4); MONOCYTES 4.7 % (2-11); NEUTROPHILS 54.6 % (40-80); PLATELET COUNT 201 10x3/uL (130-400); RBC 4.49 10x6/uL (4.00-5.40); RDW 13.8 % (11.5-14.5); WBC 7.2 10x3/uL (4.8-10.8)
[2019-04-12 14:34] LABS: ALBUMIN 3.8 g/dL (3.4-5.0); ALKALINE PHOSPHATASE 85 U/L (46-116); ALT (SGPT) 14 U/L (10-68); BILIRUBIN - TOTAL 0.76 mg/dL (0.2-1.3); CALC OSMOLALITY 277 mosm/kg (275-300); CALCIUM 8.4 mg/dL (8.5-10.1); CARBON DIOXIDE 26.2 mmol/L (21.0-32.0); CHLORIDE - SERUM 105 mmol/L (98-107); CREATININE - SERUM 0.8 mg/dL (0.6-1.3); GLUCOSE 95 mg/dL (74-106); POTASSIUM - SERUM 3.8 mmol/L (3.5-5.1); PROTEIN - SERUM 7.3 g/dL (6.4-8.2); SODIUM 140 mmol/L (136-145); UREA NITROGEN 9 mg/dL (7-18); eGFR NON AFRICAN AMERICAN 79 mL/min (90-120)
[2019-04-12 14:40] LABS: APTT 29.9 SECONDS (22.8-39.4); INR 1.45 (0.85-1.17)
[2019-04-12 14:43] LABS: CKMB 0.3 U/L (0.0-3.6); CREATINE KINASE 62 UL (21-215); TROPONIN-I < 0.017 ng/mL (0.000-0.060)
[2019-04-12 17:40] VITALS: BP 152/94
== END 2019-04-12 17:28 | disposition home or self-care (01) ==
LOC: D.ER 13:26
PROVIDERS: Family Medicine
DX: R53.1 Weakness (principal); R06.02 Shortness of breath

== ENCOUNTER → 2019-04-15 10:07 | Outpatient (CLI) | payer MEDICARE, MEDICAID ==
[2019-04-12 13:49] VITALS: BMI 22.9
--- NOTE | 2019-04-20 14:31 | ST ---
PATIENT:FUNMILAYO ALEGRE MEDICAL RECORD: [id number] SEX: F LOCATION:[facility] ORDER #: ADMISSION DATE: 04/15/19 AGE OF PATIENT: 53 REFERRING PHYSICIAN: INTERPRETING PHYSICIAN: SHADY FERREIRA MD DATE OF SERVICE: 04/15/2019 INDICATION: EKG, stress test. The patient was exercised only 1 minute 43 seconds, terminated due to extreme shortness of breath, fatigue, dizziness, and near syncope. OVERALL IMPRESSION: Inadequate exercise stress test which suggests repeating with Lexiscan and Cardiolite imaging. TRANSINT:[id number] Voice Confirmation ID: [id number] DOCUMENT ID: [id number] SHADY FERREIRA MD at 1431 CC: [id number] DICTATION DATE: 04/15/19 1441 FABRIC COATING SUPERVISOR: 04/16/19 0006 DEP CLI 04/15/19 [place] [id number] [place] [address]
== END | disposition home or self-care (01) ==
LOC: D.HCCARDIO 04-14 10:00
PROVIDERS: ATTEND Internal Medicine Interventional Cardiology
DX: R00.2 Palpitations (principal)

== ENCOUNTER 2019-04-25 21:44 | Emergency (ER) | payer MEDICARE, MEDICAID ==
[~2019-04-25] VITALS: Ht 157.5 cm; Wt 59.1 kg
[2019-04-25 21:46] VITALS: Ht 157.5 cm; Wt 59.1 kg
[2019-04-25 22:09] LABS: BASOPHILS 0.4 % (0-2); EOSINOPHILS 4.5 % (0-7); HEMATOCRIT 35.4 % (36.0-48.0); HEMOGLOBIN 12.3 g/dL (12-16); IMMATURE GRANULOCYTES 0.1 % (0-5); LYMPHOCYTES 42.9 % (15-50); MCH 29.3 pg (26.0-34.0); MCHC 34.7 g/dL (31.0-37.0); MCV 84.3 fL (80.0-100.0); MEAN PLATELET VOLUME 9.2 fL (7.4-10.4); MONOCYTES 5.7 % (2-11); NEUTROPHILS 46.4 % (40-80); PLATELET COUNT 219 10x3/uL (130-400); RDW 14.2 % (11.5-14.5); WBC 7.9 10x3/uL (4.8-10.8)
[2019-04-25 22:28] LABS: ALBUMIN 3.7 g/dL (3.4-5.0); ALKALINE PHOSPHATASE 72 U/L (46-116); ALT (SGPT) 15 U/L (10-68); BILIRUBIN - TOTAL 0.39 mg/dL (0.2-1.3); CALC OSMOLALITY 279 mosm/kg (275-300); CALCIUM 7.9 mg/dL (8.5-10.1); CARBON DIOXIDE 27.2 mmol/L (21.0-32.0); CHLORIDE - SERUM 105 mmol/L (98-107); CREATININE - SERUM 0.8 mg/dL (0.6-1.3); GLUCOSE 88 mg/dL (74-106); POTASSIUM - SERUM 3.8 mmol/L (3.5-5.1); PROTEIN - SERUM 7.1 g/dL (6.4-8.2); SODIUM 141 mmol/L (136-145); UREA NITROGEN 12 mg/dL (7-18); eGFR NON AFRICAN AMERICAN 79 mL/min (90-120)
[2019-04-25 22:32] LABS: APTT 36.5 SECONDS (22.8-39.4); INR 1.87 (0.85-1.17); PROTIME 20.9 SECONDS (11.6-15.0)
[2019-04-25 22:40] LABS: CKMB 0.5 U/L (0.0-3.6); CREATINE KINASE 65 UL (21-215); MAGNESIUM - SERUM 2.1 mg/dL (1.8-2.4); TROPONIN-I < 0.017 ng/mL (0.000-0.060)
--- NOTE | 2019-04-25 23:26 | NUR ---
DR BOWERS NOTIFIED AND REVIEWS PT'S BEHAVIOR AND ASSESSMENT RESULTS. PT IS A LOW RISK PER DR BOWERS. DR BOWERS STATED TO GIVE RESOURCES TO PT AT TIME OF DISCHARGE. NO FURTHER ORDERS AT THIS TIME. REVIEWED WITH PT AND SHE STATES UNDERSTANDING.
[2019-04-26 01:20] VITALS: BP 146/83
== END 2019-04-26 01:20 | disposition home or self-care (01) ==
LOC: D.ER 21:44
PROVIDERS: Family Medicine
DX: R07.9 Chest pain, unspecified (principal); I10 Essential (primary) hypertension; Z95.2 Presence of prosthetic heart valve; F17.200 Nicotine dependence, unspecified, uncomplicated

== ENCOUNTER → 2019-05-10 10:04 | Outpatient (CLI) | payer MEDICARE, MEDICAID ==
[2019-04-25 21:46] VITALS: BMI 23.8
[~2019-05-10 10:04] MED LIST changes: +AMOXICILLIN500 M1 PO; +BACLOFEN20 M1 PO; +NORVASC5 MG PO
--- NOTE | 2019-05-19 13:30 | ST ---
PATIENT:FUNMILAYO ALEGRE MEDICAL RECORD: [id number] SEX: F LOCATION:[facility] ORDER #: ADMISSION DATE: 05/10/19 AGE OF PATIENT: 53 REFERRING PHYSICIAN: INTERPRETING PHYSICIAN: SHADY FERREIRA MD DATE OF SERVICE: 05/10/2019 PROCEDURE: Nuclear stress test. INDICATIONS: Shortness of breath, palpitations, hypertension, abnormal exercise stress test. The patient was exercised on standard Lexiscan protocol with 33 mCi of sestamibi injected at peak stress, 10 mCi used previously for rest images. FINDINGS: Gated SPECT reveals preserved ejection fraction at 60% with good wall motion and thickening and brightening throughout all segments. SPECT imaging: Cardiolite was used as myocardial perfusion agent. There is homogeneous uptake throughout all segments at rest and stress with no evidence of inducible ischemia or previous infarction. OVERALL IMPRESSION: 1. This is a normal nuclear stress test with no evidence of inducible ischemia or previous infarction. 2. Gated SPECT reveals a preserved ejection fraction at 60%. In this patient with ongoing symptomatology, the current scan does not suggest the presence of hemodynamically significant coronary artery disease. Evaluate noncardiac etiology of chest pain. TRANSINT:[id number] Voice Confirmation ID: [id number] DOCUMENT ID: [id number] SHADY FERREIRA MD at 1330 CC: [id number] DICTATION DATE: 05/11/19 1205 UPPER INSPECTOR: 05/12/19 0658 DEP CLI 05/10/19 [place] [id number] [place] [address]
== END | disposition home or self-care (01) ==
LOC: D.HCCARDIO 10:04
PROVIDERS: ATTEND Internal Medicine Interventional Cardiology
DX: R06.02 Shortness of breath (principal)

== ENCOUNTER 2019-05-15 07:53 | Emergency (ER) | payer MEDICARE, MEDICAID ==
[~2019-05-15] VITALS: Ht 157.5 cm; Wt 56.8 kg
[~2019-05-15 07:53] MED LIST changes: -AMOXICILLIN500 M1 PO; -BACLOFEN20 M1 PO; -NORVASC5 MG PO
[2019-05-15 07:57] VITALS: Ht 157.5 cm; Wt 56.8 kg
[2019-05-15] MEDS ORDERED: HYDROCODON-ACE1 EAC7 PO (08:11)
[2019-05-15 08:30] VITALS: BP 115/68
== END 2019-05-15 08:31 | disposition home or self-care (01) ==
LOC: D.ER 07:53
DX: S93.401A Sprain of unspecified ligament of right ankle, initial encounter (principal); X50.1XXA Overexertion from prolonged static or awkward postures, initial encounter; Y93.9 Activity, unspecified; I10 Essential (primary) hypertension; F17.210 Nicotine dependence, cigarettes, uncomplicated

== ENCOUNTER 2019-06-21 17:54 | Observation (INO) | payer MEDICARE, MEDICAID ==
[~2019-06-21] VITALS: Ht 152.4 cm; Wt 65.9 kg
[2019-06-21 18:21] LABS: BASOPHILS 0.6 % (0-2); EOSINOPHILS 3.4 % (0-7); HEMATOCRIT 40.6 % (36.0-48.0); HEMOGLOBIN 13.6 g/dL (12-16); IMMATURE GRANULOCYTES 0.2 % (0-5); MCHC 33.5 g/dL (31.0-37.0); MCV 89.6 fL (80.0-100.0); MEAN PLATELET VOLUME 9.7 fL (7.4-10.4); MONOCYTES 5.6 % (2-11); NEUTROPHILS 57.2 % (40-80); RBC 4.53 10x6/uL (4.00-5.40); RDW 14.1 % (11.5-14.5); WBC 6.2 10x3/uL (4.8-10.8)
[2019-06-21 18:40] LABS: APTT 32.3 SECONDS (22.8-39.4)
[2019-06-21 18:41] LABS: INR 1.21 (0.85-1.17); PROTIME 14.8 SECONDS (11.6-15.0)
[2019-06-21 18:51] LABS: PLATELET COUNT 265 10x3/uL (130-400)
[2019-06-21 19:02] LABS: CALC OSMOLALITY 283 mosm/kg (275-300); CALCIUM 8.6 mg/dL (8.5-10.1); CHLORIDE - SERUM 104 mmol/L (98-107); SODIUM 141 mmol/L (136-145); UREA NITROGEN 10 mg/dL (7-18); eGFR NON AFRICAN AMERICAN 61 mL/min (90-120)
[2019-06-21 19:12] LABS: GLUCOSE 176 mg/dL (74-106)
[2019-06-21 19:19] LABS: ALT (SGPT) 51 U/L (10-68); BILIRUBIN - TOTAL 0.64 mg/dL (0.2-1.3); CKMB 0.3 U/L (0.0-3.6); CREATINE KINASE 83 UL (21-215); PROTEIN - SERUM 8.2 g/dL (6.4-8.2); TROPONIN-I 0.017 ng/mL (0.000-0.060)
[2019-06-21 19:34] LABS: MAGNESIUM - SERUM 1.8 mg/dL (1.8-2.4)
[2019-06-21 19:41] LABS: ALKALINE PHOSPHATASE 2 U/L (46-116)
[2019-06-21 19:53] LABS: CKMB 0.4 U/L (0.0-3.6); CREATINE KINASE 64 UL (21-215)
--- NOTE | 2019-06-21 21:00 | NUR ---
PATIENT VERY UPSET THAT SHE WAS TOLD IN THE ER THAT SHE WAS GOING TO GET MORE PAIN MEDICATION, PRIOR TO COMING TO THE FLOOR. PATIENT STATES THAT SHE WAS TOLD THE PAIN MEDICATION WOULD BE GIVEN ONCE SHE GOT TO THE THE FLOOR. EXPLAINED TO PATIENT THAT HER PAIN MEDICATION WAS GIVEN AT 1930 AND THE THE ORDER IS WRITTEN FOR Q 4H. THE NEXT TIME HER PAIN MEDICATION WAS AVAILABLE WOULD BE 2330. PATIENT TOLD TINT LAYER THAT SHE WAS GOING TO CALL THE JORDAN MAN BECAUSE I WASN'T ATTENTIVE TO HER. I WENT TO PATIENT ROOM AND EXPLAINED THAT I WAS TAKING CARE OF ANOTHER PATIENT AT THE TIME. I COMPLETED HER MED REC AT THIS TIME.
[2019-06-21] MEDS ORDERED: AMOXICILLIN500 M1 PO (22:08)
[2019-06-21 22:22] VITALS: Ht 152.4 cm; Wt 65.9 kg
[2019-06-22] VITALS: BP 164/86
[2019-06-22 01:46] LABS: CKMB 0.2 U/L (0.0-3.6); CREATINE KINASE 53 UL (21-215); TROPONIN-I < 0.017 ng/mL (0.000-0.060)
[2019-06-22 04:00] VITALS: BP 117/59
[2019-06-22 07:09] LABS: HEMATOCRIT 37.7 % (36.0-48.0); HEMOGLOBIN 12.3 g/dL (12-16); MCH 29.5 pg (26.0-34.0); MCHC 32.6 g/dL (31.0-37.0); MCV 90.4 fL (80.0-100.0); MEAN PLATELET VOLUME 9.6 fL (7.4-10.4); RBC 4.17 10x6/uL (4.00-5.40); RDW 14.2 % (11.5-14.5); WBC 4.7 10x3/uL (4.8-10.8)
--- NOTE | 2019-06-22 07:10 | NUR ---
VAL RECEVIED FROM DISABILITY INSURANCE CLAIM EXAMINER AND PATIENT CARE ASSUMED. PATIENT LAYING IN BED WITH EYES CLOSED AND BREATHING EVENLY. PATIENT IS STABLE AND VSS. WILL CONTINUE WITH PLAN OF CARE. SR UP X 2 BED IN LOW POSITION AND CALL LIGHT IN REACH.
[2019-06-22 07:30] LABS: ALBUMIN 3.4 g/dL (3.4-5.0); ALKALINE PHOSPHATASE 114 U/L (46-116); BILIRUBIN - TOTAL 0.46 mg/dL (0.2-1.3); CALCIUM 7.9 mg/dL (8.5-10.1); CARBON DIOXIDE 27.9 mmol/L (21.0-32.0); CHLORIDE - SERUM 112 mmol/L (98-107); CKMB 0.2 U/L (0.0-3.6); CREATINE KINASE 49 UL (21-215); CREATININE - SERUM 0.8 mg/dL (0.6-1.3); POTASSIUM - SERUM 3.8 mmol/L (3.5-5.1); PROTEIN - SERUM 6.9 g/dL (6.4-8.2); SODIUM 147 mmol/L (136-145); TROPONIN-I 0.026 ng/mL (0.000-0.060); eGFR NON AFRICAN AMERICAN 79 mL/min (90-120)
[2019-06-22 07:31] LABS: ALT (SGPT) 64 U/L (10-68); CALC OSMOLALITY 289 mosm/kg (275-300); GLUCOSE 91 mg/dL (74-106); UREA NITROGEN 7 mg/dL (7-18)
[2019-06-22 07:39] LABS: PLATELET COUNT 207 10x3/uL (130-400)
[2019-06-22 08:45] VITALS: BP 126/87
--- NOTE | 2019-06-22 09:21 | NUR ---
UPON ADMIT, PATIENT HAS NOT HAD A FLU SHOT. WHEN QUESTIONED, SHE STATES THAT SHE HAD ONE [address] DENNIS OFFICE.
[2019-06-22] MEDS ORDERED: NORVASC5 MG PO (09:26)
[2019-06-22 10:00] LABS: EOSINOPHILS 8 % (0-7); LYMPHOCYTES 52 % (15-50); MONOCYTES 9 % (2-11); NEUTROPHILS 29 % (40-80); PLATELET ESTIMATE NORMAL; ROULEAUX OCC
--- NOTE | 2019-06-22 10:15 | NUR ---
PATIENT IS STABLE AND VSS. PATIENT DENIES ANY PAIN OR NEEDS . ORDER FOR DC RECEIVED. WRITTEN AND VERBAL INSTRUCTIONS GIVEN . PATIENT VERBALIZED UNDERSTANDING AND PATIENT SIGNED PAPERWORK. IV TO RT AC DCD WITHOUT DIFFICULTY WITH ENTIRE CATHETER INTACT. PATIENT REFUSES WC. PATIENT ACOMPANIED TO ER AND ER PARKING LOT TO PRIVATE VEHICLE DRIVEN BY PATIENT.
--- NOTE | 2019-06-22 10:41 | CN ---
PATIENT NAME:FUNMILAYO JOHNSON MEDICAL RECORD: [id number] : 61 LOCATION:D. D.2121 ADMIT DATE: 06/21/19 ACCOUNT: [id number] CONSULTING PHYSICIAN: SHADY FERREIRA MD REFERRING PHYSICIAN: SHADY FERREIRA MD DATE OF CONSULTATION: 06/22/2019 CARDIOLOGY CONSULTATION ADMITTING DIAGNOSES: 1. Chest pain. 2. Hypertension. 3. Mitral valve replacement. 4. Paroxysmal atrial fibrillation. HISTORY OF PRESENT ILLNESS: Mrs. Johnson was experiencing chest pain. She has been experiencing chest pain for some weeks now. We did a nuclear stress test on first week of May, which was absolutely normal with ejection fraction of 60%. She has no history of ischemic heart disease. She does have a family history of heart disease and ischemic heart disease on herself, has had a mitral valve replacement. She has had episodes of atrial fibrillation with the chest pain. She did not have palpitation. She can tell and has been able to tell in the past when she has episodes of atrial fibrillation, she is on metoprolol 12.5 mg b.i.d. Over the past few days, she has been hypertensive with systolic blood pressures in the 170-180 range. She has been keeping multiple readings of these yesterday with the chest pain. She was quite hypertensive. She is pain free now. Her blood pressures backed down under 130 systolic. PHYSICAL EXAMINATION: CONSTITUTIONAL/GENERAL APPEARANCE: Well nourished, well developed, appears stated age. EYES: Lids and conjunctivae noninjected. No discharge. No pallor. ENT: Lips within normal limit. No cyanosis. No pallor. NECK: Carotid arteries, bilateral normal upstroke. No bruits. No thrills. No jugular venous pressure or distention. CERVICAL LYMPH NODES: Nontender. Nonenlarged. THYROID: Not enlarged. No nodules. CARDIOVASCULAR: Precordial exam, nondisplaced. No heaves or pericardial thrills. Rate and rhythm, regular. Heart sounds, normal S1, normal S2. No S3, no gallop, no rub. Systolic murmur, not heard. Diastolic murmur, not heard. RESPIRATORY: Respiratory effort, unlabored. Normal curvature. No thoracic deformity. No chest wall tenderness. Percussion, resonant. Auscultation, clear. No wheezes, no rales, no rhonchi. ABDOMEN: Soft, nondistended, nontender. No abdominal pain, no vomiting and normal appetite. MUSCULOSKELETAL: No joint tenderness, normal gait, normal tone. SKIN: Warm and dry. OVERALL IMPRESSION: Chest pain in conjunction with hypertension. She has already had a nuclear stress test recently that has been normal. She has no EKG changes. Troponin is normal. We will add Norvasc to her metoprolol to see if this resolves the chest pain and controls her hypertension better. We will see her back in 2-3 weeks. She is okay for discharge at this time. TRANSINT:[id number] Voice Confirmation ID: [id number] DOCUMENT ID: [id number] CONSULT REPORT [id number] FUNMILAYO JOHNSON, SHADY VILLEGAS at 1041 CC: [id number] DICTATION DATE: 06/22/19 0859 DIRECTOR OF VALUATION: 06/22/19 0912 DIS IN 06/22/19 [place] [id number] [place] [address]
--- NOTE | 2019-06-23 09:02 | MORECARE ---
CASE MANAGEMENT DISCHARGE SUMMARY PATIENT: FUNMILAYO ALEGRE UNIT: [id number] ADM DATE: 06/21/19 AGE: 53 : 61 SEX: F ROOM/BED: D.2121 AUTHOR: MITZY GONZALEZ PHYSICIAN: REFERRING PHYSICIAN: SHADY FERREIRA MD DATE OF SERVICE: 06/23/19 Discharge Plan Patient Name: FUNMILAYO ALEGRE [facility] [facility] 1965 Planned Disposition: Home Anticipated Discharge Date: 06/22/19 Discharge Date: 06/22/2019 Expected LOS: 1 Initial Reviewer: [email or web address] Initial Review Date: 06/23/2019 Generated: 06/23/19 10:01 am Patient Name: FUNMILAYO ALEGRE Page [id number] at 0902 All edits/amendments must be made on the electronic document DICTATION DATE: 06/23/19900 INJECTION MOLDER: ANDREW 06/23/19900 RPT#: [id number] DC DATE:06/22/19 STATUS: DIS IN [facility] [address] [facility] [place] [address] END OF REPORT
== END 2019-06-22 10:27 | disposition home or self-care (01) ==
LOC: D.ER 17:54 → D.M2 19:13 → OBSVTIME 19:13 → D.M2 06-22 10:27
PROVIDERS: Emergency Medicine; Family Medicine; ADMIT Internal Medicine Interventional Cardiology; ATTEND Internal Medicine Interventional Cardiology
DX: R07.9 Chest pain, unspecified (principal); I10 Essential (primary) hypertension; I48.0 Paroxysmal atrial fibrillation

== ENCOUNTER 2019-07-03 18:18 | Emergency (ER) | payer MEDICARE, MEDICAID ==
[~2019-07-03] VITALS: Ht 152.4 cm; Wt 59.1 kg
[~2019-07-03 18:18] MED LIST changes: +AMOXICILLIN500 M1 PO; +NORVASC5 MG PO
[2019-07-03 18:28] VITALS: Ht 152.4 cm; Wt 59.1 kg
[2019-07-03] MEDS ORDERED: BACLOFEN20 M1 PO (20:06)
[2019-07-03 20:21] VITALS: BP 137/83
== END 2019-07-03 20:21 | disposition home or self-care (01) ==
LOC: D.ER 18:18
DX: M79.671 Pain in right foot (principal); S99.921A Unspecified injury of right foot, initial encounter; X50.1XXA Overexertion from prolonged static or awkward postures, initial encounter; Y93.9 Activity, unspecified; Y92.9 Unspecified place or not applicable; I10 Essential (primary) hypertension; Z72.0 Tobacco use

== ENCOUNTER 2019-08-11 21:43 | Emergency (ER) | payer MEDICARE, MEDICAID ==
[~2019-08-11] VITALS: Ht 152.4 cm; Wt 56.8 kg
[~2019-08-11 21:43] MED LIST changes: +BACLOFEN20 M1 PO
[2019-08-11 21:53] VITALS: Ht 152.4 cm; Wt 56.8 kg
[2019-08-11] MEDS ORDERED: CARAFATE1 G (21:57)
[2019-08-11] MEDS ORDERED: LOVENOX60 MG/0.6 (21:58)
[2019-08-11 22:17] LABS: BASOPHILS 0.5 % (0-2); EOSINOPHILS 4.3 % (0-7); HEMATOCRIT 41.7 % (36.0-48.0); IMMATURE GRANULOCYTES 0.2 % (0-5); LYMPHOCYTES 40.2 % (15-50); MCH 29.6 pg (26.0-34.0); MCHC 33.6 g/dL (31.0-37.0); MCV 88.2 fL (80.0-100.0); MEAN PLATELET VOLUME 9.3 fL (7.4-10.4); MONOCYTES 7.2 % (2-11); NEUTROPHILS 47.6 % (40-80); RBC 4.73 10x6/uL (4.00-5.40); RDW 13.6 % (11.5-14.5); WBC 6.5 10x3/uL (4.8-10.8)
[2019-08-11 22:29] LABS: PLATELET COUNT 253 10x3/uL (130-400)
[2019-08-11 22:32] LABS: CALCIUM 8.6 mg/dL (8.5-10.1); CARBON DIOXIDE 27.7 mmol/L (21.0-32.0); CREATININE - SERUM 0.9 mg/dL (0.6-1.3); POTASSIUM - SERUM 3.7 mmol/L (3.5-5.1)
[2019-08-11 22:36] LABS: ALBUMIN 3.7 g/dL (3.4-5.0); BILIRUBIN - TOTAL 0.39 mg/dL (0.2-1.3); PROTEIN - SERUM 7.5 g/dL (6.4-8.2)
[2019-08-11 22:45] LABS: INR 1.92 (0.85-1.17); PROTIME 21.3 SECONDS (11.6-15.0)
[2019-08-11 22:46] LABS: APTT 48.5 SECONDS (22.8-39.4)
[2019-08-11 23:08] VITALS: BP 120/70
== END 2019-08-11 23:07 | disposition home or self-care (01) ==
LOC: D.ER 21:43
PROVIDERS: Family Medicine
DX: K91.840 Postprocedural hemorrhage of a digestive system organ or structure following a digestive system procedure (principal); I10 Essential (primary) hypertension

== ENCOUNTER 2019-08-16 18:48 | Observation (INO) | payer MEDICARE, MEDICAID ==
[~2019-08-16] VITALS: Ht 157.5 cm; Wt 58.2 kg
[~2019-08-16 18:48] MED LIST changes: +CARAFATE1 G; +LOVENOX60 MG/0.6
[2019-08-16 20:01] VITALS: BP 108/58
[2019-08-16 20:01] LABS: BASOPHILS 0.5 % (0-2); EOSINOPHILS 4.6 % (0-7); IMMATURE GRANULOCYTES 0.2 % (0-5); LYMPHOCYTES 41.4 % (15-50); MCHC 34.1 g/dL (31.0-37.0); MEAN PLATELET VOLUME 9.9 fL (7.4-10.4); MONOCYTES 6.8 % (2-11); NEUTROPHILS 46.5 % (40-80); PLATELET COUNT 274 10x3/uL (130-400); RBC 4.66 10x6/uL (4.00-5.40); RDW 13.4 % (11.5-14.5); WBC 6.4 10x3/uL (4.8-10.8)
[2019-08-16 20:11] LABS: INR 4.34 (0.85-1.17); PROTIME 40.6 SECONDS (11.6-15.0)
[2019-08-16 20:12] LABS: APTT 96.5 SECONDS (22.8-39.4); D-DIMER-QUANTITATIVE 0.54 ug/mLFEU (0.20-0.54)
[2019-08-16 20:17] LABS: CALC OSMOLALITY 283 mosm/kg (275-300); CALCIUM 8.8 mg/dL (8.5-10.1); CARBON DIOXIDE 24.3 mmol/L (21.0-32.0); CHLORIDE - SERUM 104 mmol/L (98-107); CREATININE - SERUM 0.8 mg/dL (0.6-1.3); GLUCOSE 111 mg/dL (74-106); POTASSIUM - SERUM 3.5 mmol/L (3.5-5.1); SODIUM 143 mmol/L (136-145); UREA NITROGEN 6 mg/dL (7-18); eGFR NON AFRICAN AMERICAN 79 mL/min (90-120)
[2019-08-16 20:20] LABS: UDS - AMPHET NEGATIVE QUAL (NEGATIVE); UDS - BARB NEGATIVE QUAL (NEGATIVE); UDS - BENZO NEGATIVE QUAL (NEGATIVE); UDS - COCAINE NEGATIVE QUAL (NEGATIVE); UDS - OPIATE NEGATIVE QUAL (NEGATIVE); UDS - PCP NEGATIVE QUAL (NEGATIVE); UDS - THC NEGATIVE QUAL (NEGATIVE)
[2019-08-16 20:30] LABS: APPEARANCE CLEAR (CLEAR); BILIRUBIN NEGATIVE (NEGATIVE); COLOR YELLOW (YELLOW); GLUCOSE NEGATIVE (NEGATIVE); KETONE NEGATIVE (NEGATIVE); NITRITE NEGATIVE (NEGATIVE); PROTEIN NEGATIVE (NEGATIVE); UROBILINOGEN NORMAL (NORMAL)
[2019-08-16 20:33] LABS: ALBUMIN 4.1 g/dL (3.4-5.0); ALKALINE PHOSPHATASE 101 U/L (46-116); ALT (SGPT) 35 U/L (10-68); BILIRUBIN - TOTAL 0.31 mg/dL (0.2-1.3); LIPASE 433 U/L (73-393); MAGNESIUM - SERUM 2.1 mg/dL (1.8-2.4); PRO BNP 464 pg/mL (0-125); PROTEIN - SERUM 7.8 g/dL (6.4-8.2); THYROID STIMULATING HORMONE 0.96 uIU/mL (0.36-3.74); TROPONIN-I < 0.017 ng/mL (0.000-0.060)
[2019-08-16 21:06] VITALS: BP 110/74
[2019-08-16 21:53] VITALS: BP 112/77
--- NOTE | 2019-08-16 22:01 | NUR ---
Report given to med 2 spoke with ANDRZEJ, PHENERGAN GIVEN IM L VG PRIOR TO TRANSFER
--- NOTE | 2019-08-16 22:04 | NUR ---
NOTIFIED ANDRZEJ ON MED [address] HANNA CHAVIS
[2019-08-17] VITALS: BP 110/62
[2019-08-17 05:03] VITALS: BP 109/56
[2019-08-17 06:13] LABS: HEMATOCRIT 38.5 % (36.0-48.0); HEMOGLOBIN 12.6 g/dL (12-16); MCH 29.2 pg (26.0-34.0); MCHC 32.7 g/dL (31.0-37.0); MCV 89.1 fL (80.0-100.0); MEAN PLATELET VOLUME 9.8 fL (7.4-10.4); PLATELET COUNT 255 10x3/uL (130-400); RBC 4.32 10x6/uL (4.00-5.40); RDW 13.6 % (11.5-14.5); WBC 7.3 10x3/uL (4.8-10.8)
[2019-08-17 06:45] LABS: ALBUMIN 3.3 g/dL (3.4-5.0); ALKALINE PHOSPHATASE 80 U/L (46-116); ALT (SGPT) 30 U/L (10-68); BILIRUBIN - TOTAL 0.27 mg/dL (0.2-1.3); CALCIUM 8.2 mg/dL (8.5-10.1); CARBON DIOXIDE 26.4 mmol/L (21.0-32.0); CHLORIDE - SERUM 105 mmol/L (98-107); CKMB 0.1 U/L (0.0-3.6); CREATINE KINASE 49 UL (21-215); CREATININE - SERUM 0.8 mg/dL (0.6-1.3); GLUCOSE 93 mg/dL (74-106); MAGNESIUM - SERUM 2.1 mg/dL (1.8-2.4); PHOSPHOROUS 5.2 mg/dL (2.5-4.9); POTASSIUM - SERUM 3.8 mmol/L (3.5-5.1); PRO BNP 230 pg/mL (0-125); PROTEIN - SERUM 6.8 g/dL (6.4-8.2); SODIUM 141 mmol/L (136-145); THYROID STIMULATING HORMONE 2.62 uIU/mL (0.36-3.74); eGFR NON AFRICAN AMERICAN 79 mL/min (90-120)
[2019-08-17 07:01] LABS: CALC OSMOLALITY 279 mosm/kg (275-300); TROPONIN-I < 0.017 ng/mL (0.000-0.060); UREA NITROGEN 11 mg/dL (7-18)
[2019-08-17 07:04] LABS: INR 5.41 (0.85-1.17)
[2019-08-17 07:05] LABS: PROTIME 48.2 SECONDS (11.6-15.0)
[2019-08-17 08:00] VITALS: BP 101/50; BP 124/60; BP 124/66; BP 125/57
--- NOTE | 2019-08-17 09:09 | NUR ---
ORTHOSTATIC B/P: LYING 125/57 60, SITTING 124/60 60, STANDING 124/66 57. WILL CONT. TO MONITOR.
[2019-08-17 11:56] LABS: EOSINOPHILS 9 % (0-7); LYMPHOCYTES 42 % (15-50); MONOCYTES 12 % (2-11); NEUTROPHILS 37 % (40-80); PLATELET ESTIMATE NORMAL; ROULEAUX OCC
[2019-08-17 12:19] VITALS: Ht 157.5 cm; Wt 58.2 kg
[2019-08-17 12:23] VITALS: BP 88/51
[2019-08-17 16:30] VITALS: BP 103/54
--- NOTE | 2019-08-17 19:27 | NUR ---
RECEIVED BEDSIDE REPORT. PATIENT IS ALERT ANDF ORIENTED, RESTING COMFORTABLY IN BED. RESPIRATIONS ARE EVEN AND UNLABORED. NO S/S OF DISTRESS. NO C/OPAIN. CALL LIGHT WITHIN REACH. WILL CPOC.
[2019-08-17 20:30] VITALS: BP 105/740; BP 113/64; BP 97/50
[2019-08-18] VITALS (7 sets, daily range): BP systolic 90–121; BP diastolic 47–72
--- NOTE | 2019-08-18 02:33 | NUR ---
PATIENT RESTING COMFORTABLY. RESPIRATIONS ARE EVEN AND UNABORED.. NO S/S OF DISTRESS. CALL LIGHT WITHIN REACH. WILL CPOC.
[2019-08-18 06:23] LABS: BASOPHILS 0.3 % (0-2); EOSINOPHILS 8.7 % (0-7); HEMATOCRIT 37.9 % (36.0-48.0); HEMOGLOBIN 12.2 g/dL (12-16); IMMATURE GRANULOCYTES 0.2 % (0-5); LYMPHOCYTES 43.4 % (15-50); MCHC 32.2 g/dL (31.0-37.0); MCV 90.2 fL (80.0-100.0); MEAN PLATELET VOLUME 9.2 fL (7.4-10.4); MONOCYTES 6.3 % (2-11); NEUTROPHILS 41.1 % (40-80); PLATELET COUNT 212 10x3/uL (130-400); RDW 13.8 % (11.5-14.5); WBC 6.1 10x3/uL (4.8-10.8)
[2019-08-18 06:45] LABS: ANION GAP 10.1 mmol/L (8-16); CALCIUM 8.3 mg/dL (8.5-10.1); CARBON DIOXIDE 28.1 mmol/L (21.0-32.0); CREATININE - SERUM 0.9 mg/dL (0.6-1.3); PHOSPHOROUS 4.3 mg/dL (2.5-4.9); POTASSIUM - SERUM 4.2 mmol/L (3.5-5.1)
--- NOTE | 2019-08-18 08:30 | NUR ---
ORTHOSTATIC B/P: LYING 116/68, SITTING 119/67, AND STANDING 120/66.
[2019-08-18 11:58] LABS: INR 4.65 (0.85-1.17); PROTIME 42.9 SECONDS (11.6-15.0)
--- NOTE | 2019-08-18 14:04 | EC ---
PATIENT:FUNMILAYO ALEGRE DATE OF SERVICE: 08/16/19 SEX: F MEDICAL RECORD: [id number] DATE OF : 61 LOCATION:D.M2 D.211 AGE OF PATIENT: 53 ADMISSION DATE: 08/16/19 REFERRING PHYSICIAN: INTERPRETING PHYSICIAN: SHADY SMALLWOOD MD ECHOCARDIOGRAM REPORT ECHO CHARGES 4 ECHO COMPLETE Date: 08/17/19 CLINICAL DIAGNOSIS: SYNCOPE HX MVR/TV REPAIR ECHOCARDIOGRAPHIC MEASUREMENTS (adult normal given) AC root (d.<3.7cm) 3.2 cm LV Septum d (<1.2 cm> 1.1 cm Valve Excursion 1.3 cm LV Septum (systole) 1.4 cm Left Atria (s.<4.0cm> 3.9 cm LVPW d(<1.2cm) 1.3 cm RV (d.<2.3cm) 4.0 cm LVPW (sytole) 1.6 cm LV diastole(<5.6CM) 5.6 cm MV E-F(>70mm/sec) cm LV systole 3.7 cm LVOT Diameter 1.6 cm MV exc.(>10mm) 1.4 cm Est.ejection fraction (50-75%) % DOPPLER: LVIT cm/sec A 126 cm/sec E 133 cm/sec LA cm/sec RVSP 35 mmHg LVOT 103 cm/sec AOP1/2T m/s Asc. Ao 140 cm/sec RVOT 57 cm/sec RA cm/sec PA 69 cm/sec AV Gradient Peak 7.89 mmHg AV Mean 3.69 mmHg AV Area 1.6 cm MV Gradient Peak 10.32mmHg MV Mean 2.58 mmHg MV Area cm COMMENTS: Architectural Model Maker: 2 SIMONE WARD Assessor: 1 Dr. Smallwood TAPE# PACS Pericardial Effusion N DATE OF SERVICE: Echocardiogram FINDINGS: 1. Left ventricular chamber size is mildly dilated. Left ventricular systolic function is preserved at 60% to 65%. 2. Left atrium is within normal limits. Right atrium and right ventricle chamber sizes are mildly dilated. 3. Valvular structures: Mitral valve is replaced with mechanical prosthesis ECHOCARDIOGRAM REPORT [id number] FUNMILAYO ALEGRE with normal structure and function in this position. The remaining valvular structures have normal structure and motion. 4. Doppler interrogation reveals only trace tricuspid regurgitation, no other valvular insufficiency or stenosis. 5. No evidence of pericardial effusion or left ventricular thrombus. TRANSINT:[id number] Voice Confirmation ID: [id number] DOCUMENT ID: [id number] SHADY SMALLWOOD MD at 1404 CC: [id number] DICTATION DATE: 08/17/19 1620 SAWMILLING OPERATOR: 08/18/19 0220 ADM IN [facility] [address] [place] [id number]
--- NOTE | 2019-08-18 14:04 | CN ---
PATIENT NAME:FUNMILAYO ALEGRE MEDICAL RECORD: [id number] : 61 LOCATION:D. D.2115 ADMIT DATE: 08/16/19 ACCOUNT: [id number] CONSULTING PHYSICIAN: SHADY FERREIRA MD REFERRING PHYSICIAN: BONIFACIO SHEIKH MD DATE OF CONSULTATION: 08/17/2019 CARDIOLOGY CONSULTATION DIAGNOSES: 1. Mitral valve replacement, mechanical. 2. Atrial fibrillation. 3. Coumadin anticoagulation. 4. Hypertension. 5. Chest pain. HISTORY OF PRESENT ILLNESS: Mrs. Alegre presents to the hospital with very atypical chest pain. She has pain, it is in her back between her shoulder blades that lasts only a few seconds. It is quite severe. She has had this since her mitral valve surgery late in 2018. She did not have any coronary artery disease and did not have any bypasses done at that time. She recently had a tooth extraction. After that, she was given antibiotics. Her INR is 5.4. Troponins are normal. EKG is with no ST-T changes. PHYSICAL EXAMINATION: CONSTITUTIONAL/GENERAL APPEARANCE: Well nourished, well developed, appears stated age. EYES: Lids and conjunctivae noninjected. No discharge. No pallor. ENT: Lips within normal limit. No cyanosis. No pallor. NECK: Carotid arteries, bilateral normal upstroke. No bruits. No thrills. No jugular venous pressure or distention. CERVICAL LYMPH NODES: Nontender. Nonenlarged. THYROID: Not enlarged. No nodules. CARDIOVASCULAR: Precordial exam, nondisplaced. No heaves or pericardial thrills. Rate and rhythm, regular. Heart sounds, normal S1, normal S2. No S3, no gallop, no rub. Systolic murmur, not heard. Diastolic murmur, not heard. RESPIRATORY: Respiratory effort, unlabored. Normal curvature. No thoracic deformity. No chest wall tenderness. Percussion, resonant. Auscultation, clear. No wheezes, no rales, no rhonchi. ABDOMEN: Soft, nondistended, nontender. No abdominal pain, no vomiting and normal appetite. MUSCULOSKELETAL: No joint tenderness, normal gait, normal tone. SKIN: Warm and dry. OVER IMPRESSION: Stable from the standpoint of the mechanical mitral valve, hypercoagulated secondary to the antibiotics with the Coumadin. We will hold her Coumadin for 2-3 days. Restart her Coumadin at previous level. From the standpoint of chest pain, ischemic heart disease, she needed no further workup and treatment. TRANSINT:[id number] Voice Confirmation ID: [id number] DOCUMENT ID: [id number] CONSULT REPORT [id number] FUNMILAYO ALEGRE, SHADY VILLEGAS at 1404 CC: [id number] DICTATION DATE: 08/17/19 1221 FUNNEL COATER: 08/17/192020 ADM IN [place] [id number] [place] [id number]
--- NOTE | 2019-08-18 14:52 | NUR ---
TELEMETRY SR. UP AMBULATING HAQLLWAY ADLIB. GAIT STEADY.
--- NOTE | 2019-08-18 15:18 | NUR ---
B/P LYING 103/56 AND STANDING 115/72.
--- NOTE | 2019-08-18 17:22 | NUR ---
IV AND TELEMETRY DCD. DC PLANS GIVEN. UNDERSTANDING VOICED. ESCORTED TO ER PARKING LOT.
--- NOTE | 2019-08-19 09:04 | MORECARE ---
CASE MANAGEMENT DISCHARGE SUMMARY PATIENT: BREANNA ALEGRE UNIT: [id number] ADM DATE: 08/16/19 AGE: 53 : 61 SEX: F ROOM/BED: D.1610 AUTHOR: LISA,DOC PHYSICIAN: REFERRING PHYSICIAN: BONIFACIO SHEIKH MD DATE OF SERVICE: 08/19/19 Discharge Plan Patient Name: BREANNA ALEGRE Facility: [facility]:[place] : 1965 Planned Disposition: Home Anticipated Discharge Date: 08/18/19 Discharge Date: 08/18/2019 Expected LOS: 2 Initial Reviewer: [email or web address] Initial Review Date: 08/19/2019 Generated: 08/19/19 10:03 am Comments DCP- Discharge Planning Updated by [email or web address]: Shanta Mcintyre on 08/17/19 6:[address] CM met with patient to discuss initial discharge planning. Patient is in agreement to proceed with assessment. Verified patient's address and telephone number. Patient is alert/oriented. Stairs/steps: 2. PCP: Dr. Kaushik Jj. Pharmacy: [facility]. Patient states they have been able to obtain all of their prescribed medications. Patient lives with alone. HHS: No. DME: No. Patient gives permission to speak with family members/care givers. Emergency contact: Jovany Jeffers (son) [phone]. Patient is Independent with all ADL's, medication management. CM discussed the availability of HH, Rehab, DME services. Patient denies the need for additional services at this time and feels safe returning to previous environment. Patient denies being hospitalized within the past 30 days. Patient denies the use of community resources MOP HANDLE ASSEMBLER. Transportation at time of discharge: Unsure. CM will assist with DC needs/plans PRN. Coverage Notice Reviewer: [id number] - Shanta Mcintyre Notice Issued Date-Time: 08/17/2019 18:35 Notice Type: Medicare Outpatient Observation Notice Notice Delivered To: Patient Relationship to Patient: Self Plant Taxonomist Name: Breanna Alegre Delivery Method: HAND - Hand Delivered Linda Days: Prior Verbal Notification: Recipient Understood Notice: Yes Recipient Signature: Yes Med Rec Note Co-signed by Attending: Coverage Notice Comment: HERNANDEZ delivered to and signed by patient. Original given to patient and one placed on chart. Patient Name: BREANNA ALEGRE Page [phone] at 0904 All edits/amendments must be made on the electronic document DICTATION DATE: 08/19/19902 SYSTEMS MGR: ANDREW 08/19/19902 RPT#: [id number] DC DATE:08/18/19 STATUS: DIS IN [facility] [address] [place] [address] END OF REPORT
== END 2019-08-18 17:23 | disposition home or self-care (01) ==
LOC: D.ER 18:48 → OBSVTIME 20:38 → D.M2 20:38
PROVIDERS: Family Medicine; ADMIT Family Medicine; ATTEND Family Medicine
DX: R07.9 Chest pain, unspecified (principal); I48.91 Unspecified atrial fibrillation; R55 Syncope and collapse; R00.1 Bradycardia, unspecified; F17.203 Nicotine dependence unspecified, with withdrawal; K21.9 Gastro-esophageal reflux disease without esophagitis; Z85.41 Personal history of malignant neoplasm of cervix uteri; Z85.038 Personal history of other malignant neoplasm of large intestine; Z95.2 Presence of prosthetic heart valve; Z79.01 Long term (current) use of anticoagulants

== ENCOUNTER 2019-10-04 03:33 | Emergency (ER) | payer MEDICARE, MEDICAID ==
[~2019-10-04] VITALS: Ht 157.5 cm; Wt 60.5 kg
[~2019-10-04 03:33] MED LIST changes: +ZOFRAN ODT4 MG/UDTAB PO
[2019-10-04 03:37] VITALS: Ht 157.5 cm; Wt 60.5 kg
[2019-10-04] MEDS ORDERED: COUMADIN3 MG PO (03:40)
[2019-10-04] MEDS ORDERED: COUMADIN1 MG PO (03:41)
--- NOTE | 2019-10-04 04:14 | NUR ---
DR. BOWERS NOTIFIED AND REVIEWED PT'S BEHAVIOR AND ASSESSMENT RESULTS. PT IS A LOW RISK PER DR. BOWERS. DR. BOWERS STATED TO GIVE RESOURCES TO PT AT TIME OF DISCHARGE. NO FURTHER ORDERS AT THIS TIME. RESOURCES TO PT AT TIME OF DISCHARGE. NO FURTHER ORDERS AT THIS TIME. RESOURCES REVIEWED WITH PT AND SHE VERBALIZED UNDERSTANDING.
[2019-10-04] MEDS ORDERED: NORCO-7.51 TAB PO (04:54)
[2019-10-04 04:59] LABS: ANION GAP 13.4 mmol/L (8-16); BASOPHILS 0.3 % (0-2); CALCIUM 8.7 mg/dL (8.5-10.1); CARBON DIOXIDE 28.5 mmol/L (21.0-32.0); EOSINOPHILS 3.4 % (0-7); HEMATOCRIT 39.7 % (36.0-48.0); HEMOGLOBIN 13.2 g/dL (12-16); IMMATURE GRANULOCYTES 0.1 % (0-5); LYMPHOCYTES 31.8 % (15-50); MCH 28.7 pg (26.0-34.0); MCHC 33.2 g/dL (31.0-37.0); MCV 86.3 fL (80.0-100.0); MEAN PLATELET VOLUME 9.6 fL (7.4-10.4); MONOCYTES 7.8 % (2-11); NEUTROPHILS 56.6 % (40-80); PLATELET COUNT 240 10x3/uL (130-400); POTASSIUM - SERUM 3.9 mmol/L (3.5-5.1); RDW 13.3 % (11.5-14.5); WBC 7.4 10x3/uL (4.8-10.8)
[2019-10-04 05:01] LABS: INR 3.13 (0.85-1.17); PROTIME 31.7 SECONDS (11.6-15.0)
[2019-10-04 05:09] LABS: ALBUMIN 4.3 g/dL (3.4-5.0); BILIRUBIN - TOTAL 0.55 mg/dL (0.2-1.3); PROTEIN - SERUM 7.9 g/dL (6.4-8.2)
[2019-10-04 05:37] VITALS: BP 177/94
== END 2019-10-04 05:36 | disposition home or self-care (01) ==
LOC: D.ER 03:33
PROVIDERS: Emergency Medicine
DX: S60.512A Abrasion of left hand, initial encounter (principal); V89.2XXA Person injured in unspecified motor-vehicle accident, traffic, initial encounter; Y93.9 Activity, unspecified; Y92.9 Unspecified place or not applicable; S39.012A Strain of muscle, fascia and tendon of lower back, initial encounter; S61.219A Laceration without foreign body of unspecified finger without damage to nail, initial encounter; J45.909 Unspecified asthma, uncomplicated; I48.91 Unspecified atrial fibrillation; Z72.0 Tobacco use

== ENCOUNTER 2019-10-12 17:12 | Inpatient (IN) | payer MEDICARE, MEDICAID ==
[~2019-10-12] VITALS: Ht 157.5 cm; Wt 64.1 kg
[~2019-10-12 17:12] MED LIST changes: -CARAFATE1 G; +COUMADIN1 MG PO; +COUMADIN3 MG PO; +NORCO-7.51 TAB PO
[2019-10-12 18:24] LABS: BASOPHILS 0.3 % (0-2); EOSINOPHILS 5.2 % (0-7); HEMOGLOBIN 13.3 g/dL (12-16); IMMATURE GRANULOCYTES 0.2 % (0-5); LYMPHOCYTES 37.5 % (15-50); MCHC 34.1 g/dL (31.0-37.0); MCV 85.2 fL (80.0-100.0); MEAN PLATELET VOLUME 9.8 fL (7.4-10.4); MONOCYTES 7.5 % (2-11); NEUTROPHILS 49.3 % (40-80); PLATELET COUNT 244 10x3/uL (130-400); RBC 4.58 10x6/uL (4.00-5.40); WBC 6.4 10x3/uL (4.8-10.8)
[2019-10-12 18:27] VITALS: BP 162/84
[2019-10-12 18:33] LABS: APTT 34.6 SECONDS (22.8-39.4); INR 1.39 (0.85-1.17); PROTIME 16.9 SECONDS (11.6-15.0)
[2019-10-12 18:35] LABS: CALC OSMOLALITY 274 mosm/kg (275-300); CALCIUM 8.8 mg/dL (8.5-10.1); CARBON DIOXIDE 26.9 mmol/L (21.0-32.0); CHLORIDE - SERUM 104 mmol/L (98-107); CREATININE - SERUM 0.8 mg/dL (0.6-1.3); GLUCOSE 93 mg/dL (74-106); POTASSIUM - SERUM 3.5 mmol/L (3.5-5.1); SODIUM 138 mmol/L (136-145); UREA NITROGEN 9 mg/dL (7-18); eGFR NON AFRICAN AMERICAN 78 mL/min (90-120)
[2019-10-12 18:52] LABS: ALKALINE PHOSPHATASE 69 U/L (30-120); ALT (SGPT) 18 U/L (10-68); BILIRUBIN - TOTAL 0.58 mg/dL (0.2-1.3); CKMB 0.1 U/L (0.0-3.6); CREATINE KINASE 58 UL (21-215); MAGNESIUM - SERUM 1.9 mg/dL (1.8-2.4); PROTEIN - SERUM 7.7 g/dL (6.4-8.2); TROPONIN-I < 0.017 ng/mL (0.000-0.060)
[2019-10-12 20:00] VITALS: BP 155/98
[2019-10-12] MEDS ORDERED: METOPROLOL TART50 MG PO (20:20)
[2019-10-12 23:43] VITALS: BMI 23.5
[2019-10-13] VITALS: BP 131/64
[2019-10-13 04:00] VITALS: BP 131/71
[2019-10-13 05:48] LABS: BASOPHILS 0.3 % (0-2); EOSINOPHILS 6.4 % (0-7); HEMATOCRIT 38.7 % (36.0-48.0); IMMATURE GRANULOCYTES 0.1 % (0-5); LYMPHOCYTES 48.5 % (15-50); MCH 29.5 pg (26.0-34.0); MCHC 33.6 g/dL (31.0-37.0); MONOCYTES 7.3 % (2-11); NEUTROPHILS 37.4 % (40-80); PLATELET COUNT 239 10x3/uL (130-400); RBC 4.41 10x6/uL (4.00-5.40); RDW 13.3 % (11.5-14.5); WBC 7.1 10x3/uL (4.8-10.8)
[2019-10-13 05:50] LABS: ALBUMIN 3.8 g/dL (3.4-5.0); ANION GAP 11.6 mmol/L (8-16); BILIRUBIN - TOTAL 0.44 mg/dL (0.2-1.3); CALCIUM 8.5 mg/dL (8.5-10.1); CARBON DIOXIDE 29.1 mmol/L (21.0-32.0); CREATININE - SERUM 0.9 mg/dL (0.6-1.3); PHOSPHOROUS 4.8 mg/dL (2.5-4.9); POTASSIUM - SERUM 3.7 mmol/L (3.5-5.1); PROTEIN - SERUM 7.5 g/dL (6.4-8.2)
[2019-10-13 05:52] LABS: MCV 87.8 fL (80.0-100.0)
[2019-10-13 10:00] VITALS: BP 121/71
[2019-10-13 10:21] LABS: INR 1.51 (0.85-1.17)
[2019-10-13 10:33] LABS: APTT 42.9 SECONDS (22.8-39.4)
[2019-10-13 14:04] VITALS: BP 142/55
[2019-10-13 15:21] VITALS: Ht 157.5 cm; Wt 64.1 kg
[2019-10-13 18:03] VITALS: BP 140/74
[2019-10-13 20:30] VITALS: BP 140/80
[2019-10-14 00:30] VITALS: BP 139/72
--- NOTE | 2019-10-14 03:40 | NUR ---
I have reviewed this patient and I concur with the Shift Assessment completed by the Licensed Practical Nurse today this shift.
[2019-10-14 04:30] VITALS: BP 117/45
[2019-10-14 05:32] LABS: BASOPHILS 0.5 % (0-2); EOSINOPHILS 6.3 % (0-7); HEMATOCRIT 35.9 % (36.0-48.0); HEMOGLOBIN 11.7 g/dL (12-16); LYMPHOCYTES 44.4 % (15-50); MCH 29.3 pg (26.0-34.0); MCHC 32.6 g/dL (31.0-37.0); MONOCYTES 7.2 % (2-11); NEUTROPHILS 41.6 % (40-80); PLATELET COUNT 212 10x3/uL (130-400); RDW 13.5 % (11.5-14.5); WBC 5.6 10x3/uL (4.8-10.8)
[2019-10-14 05:40] LABS: MCV 89.8 fL (80.0-100.0)
[2019-10-14 05:42] LABS: INR 1.52 (0.85-1.17); PROTIME 18.2 SECONDS (11.6-15.0)
[2019-10-14 06:05] LABS: ALBUMIN 3.5 g/dL (3.4-5.0); ALKALINE PHOSPHATASE 60 U/L (30-120); ALT (SGPT) 22 U/L (10-68); BILIRUBIN - TOTAL 0.26 mg/dL (0.2-1.3); CALC OSMOLALITY 283 mosm/kg (275-300); CALCIUM 8.3 mg/dL (8.5-10.1); CHLORIDE - SERUM 108 mmol/L (98-107); CREATININE - SERUM 0.8 mg/dL (0.6-1.3); GLUCOSE 94 mg/dL (74-106); PHOSPHOROUS 4.1 mg/dL (2.5-4.9); POTASSIUM - SERUM 4.1 mmol/L (3.5-5.1); PROTEIN - SERUM 6.3 g/dL (6.4-8.2); SODIUM 143 mmol/L (136-145); UREA NITROGEN 10 mg/dL (7-18); eGFR NON AFRICAN AMERICAN 78 mL/min (90-120)
[2019-10-14 06:17] LABS: MAGNESIUM - SERUM 2.8 mg/dL (1.8-2.4)
[2019-10-14 12:00] VITALS: BP 128/68
--- NOTE | 2019-10-14 12:25 | NUR ---
PT RETURNED FROM FROM OR RECOVERY ASLEEP RR EVEN AND UNLABORED. VSS. NO S/S OF DISTRESS AT THIS TIME. FAMILY AT BEDSIDE. BED LOW CALL LIGHT WITHIN REACH. WILL CONTINUE TO MONITOR.
[2019-10-14 16:00] VITALS: BP 108/56
--- NOTE | 2019-10-14 16:16 | NUR ---
I have reviewed this patient and I concur with the Shift Assessment completed by the Licensed Practical Nurse today this shift.
--- NOTE | 2019-10-14 19:30 | NUR ---
RECEIVED REPORT, WILL ASSUME CARE OF PT, A&O, R.UPPER ARM-NS @ KVO, STILL COMPLAINS OF PAIN, RECEIVED MORPHINE @1824, GAVE KLONOPIN AND ZOFRAN, BED IS LOW, SRX2, CALL LIGHT IN REACH, WILL CONTINUE PLAN OF CARE
[2019-10-14 20:00] VITALS: BP 161/87
[2019-10-15] VITALS: BP 166/91
[2019-10-15 00:03] VITALS: BP 166/91
--- NOTE | 2019-10-15 02:22 | NUR ---
I have reviewed this patient and I concur with the Shift Assessment completed by the Licensed Practical Nurse today this shift.
[2019-10-15 04:00] VITALS: BP 179/77
[2019-10-15 06:13] LABS: BASOPHILS 0.1 % (0-2); EOSINOPHILS 0.2 % (0-7); HEMATOCRIT 33.2 % (36.0-48.0); HEMOGLOBIN 10.8 g/dL (12-16); IMMATURE GRANULOCYTES 0.2 % (0-5); MCH 29.1 pg (26.0-34.0); MCHC 32.5 g/dL (31.0-37.0); MCV 89.5 fL (80.0-100.0); MEAN PLATELET VOLUME 10.4 fL (7.4-10.4); MONOCYTES 9.5 % (2-11); PLATELET COUNT 202 10x3/uL (130-400); RBC 3.71 10x6/uL (4.00-5.40); RDW 13.6 % (11.5-14.5)
[2019-10-15 06:23] LABS: WBC 9.2 10x3/uL (4.8-10.8)
[2019-10-15 06:31] LABS: ALBUMIN 3.2 g/dL (3.4-5.0); ANION GAP 11.5 mmol/L (8-16); BILIRUBIN - TOTAL 0.28 mg/dL (0.2-1.3); CARBON DIOXIDE 27.6 mmol/L (21.0-32.0); PHOSPHOROUS 3.1 mg/dL (2.5-4.9); POTASSIUM - SERUM 4.1 mmol/L (3.5-5.1)
[2019-10-15 06:32] LABS: CREATININE - SERUM 1.2 mg/dL (0.6-1.3); MAGNESIUM - SERUM 1.9 mg/dL (1.8-2.4)
--- NOTE | 2019-10-15 07:10 | NUR ---
ASSESSMENT DONE. DENIES NEEDS
[2019-10-15 09:07] VITALS: BP 151/71
[2019-10-15] MEDS ORDERED: ACETAMINOPHEN325 MG PO (12:19)
[2019-10-15 12:48] LABS: INR 1.79 (0.85-1.17); PROTIME 20.6 SECONDS (11.6-15.0)
--- NOTE | 2019-10-15 14:01 | NUR ---
DC GIVEN TO PT
--- NOTE | 2019-10-15 14:11 | NUR ---
I have reviewed this patient and I concur with the Shift Assessment completed by the Licensed Practical Nurse today this shift.
--- NOTE | 2019-10-15 14:53 | NUR ---
DC HOME PER PERSONAL CAR
--- NOTE | 2019-10-17 09:39 | MORECARE ---
CASE MANAGEMENT DISCHARGE SUMMARY PATIENT: FUNMILAYO ALEGRE UNIT: [id number] ADM DATE: 10/12/19 AGE: 54 : 61 SEX: F ROOM/BED: D.0893 AUTHOR: MITZY GONZALEZ PHYSICIAN: REFERRING PHYSICIAN: GRICELDA LAO MD DATE OF SERVICE: 10/17/19 Discharge Plan Patient Name: FUNMILAYO ALEGRE [facility] [facility] 1965 Planned Disposition: Home Anticipated Discharge Date: 10/15/19 Discharge Date: 10/15/2019 Expected LOS: 3 Initial Reviewer: [email or web address] Initial Review Date: 10/17/2019 Generated: 10/17/19 10:38 am Patient Name: FUNMILAYO ALEGRE Page [id number] at 0939 All edits/amendments must be made on the electronic document DICTATION DATE: 10/17/19937 ATOMIZER ASSEMBLER: ANDREW 10/17/19937 RPT#: [id number] DC DATE:10/15/19 STATUS: DIS IN [facility] [address] [place] [address] END OF REPORT
--- NOTE | 2019-10-17 09:47 | MORECARE ---
CASE MANAGEMENT DISCHARGE SUMMARY PATIENT: FUNMILAYO ALEGRE UNIT: [id number] ADM DATE: 10/12/19 AGE: 54 : 61 SEX: F ROOM/BED: D.2123 AUTHOR: MITZY GONZALEZ PHYSICIAN: REFERRING PHYSICIAN: GRICELDA LAO MD DATE OF SERVICE: 10/17/19 Discharge Plan Patient Name: FUNMILAYO ALEGRE [facility] [facility] 1965 Planned Disposition: Home Anticipated Discharge Date: 10/15/19 Discharge Date: 10/15/2019 Expected LOS: 3 Initial Reviewer: [email or web address] Initial Review Date: 10/17/2019 Generated: 10/17/19 10:46 am Patient Name: FUNMILAYO ALEGRE Page [phone] at 0947 All edits/amendments must be made on the electronic document DICTATION DATE: 10/17/19946 DOCUMENT IMAGE TECHNICIAN: ANDREW 10/17/19946 RPT#: [id number] DC DATE:10/15/19 STATUS: DIS IN [facility] [address] [place] [address] END OF REPORT
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
== END 2019-10-15 14:54 | disposition home or self-care (01) | DRG 243 ==
LOC: D.ER 17:12 → D.M2 18:55
PROVIDERS: Emergency Medicine; Thoracic Surgery (Cardiothoracic Vascular Surgery); ADMIT Family Medicine; ATTEND Family Medicine
PROC: 02H63JZ Insertion of Pacemaker Lead into Right Atrium, Percutaneous Approach (ICD-10-PCS; 2019-10-14)
PROC: 0JH606Z Insertion of Pacemaker, Dual Chamber into Chest Subcutaneous Tissue and Fascia, Open Approach (ICD-10-PCS; principal; 2019-10-14 07:30)
DX: I49.5 Sick sinus syndrome (principal); I48.20 Chronic atrial fibrillation, unspecified; Z79.01 Long term (current) use of anticoagulants; K21.9 Gastro-esophageal reflux disease without esophagitis; M79.7 Fibromyalgia; I50.9 Heart failure, unspecified; I25.10 Atherosclerotic heart disease of native coronary artery without angina pectoris; Z95.2 Presence of prosthetic heart valve; Z85.41 Personal history of malignant neoplasm of cervix uteri; Z85.038 Personal history of other malignant neoplasm of large intestine; Z72.0 Tobacco use

== ENCOUNTER 2019-10-17 23:47 | Emergency (ER) | payer MEDICARE, MEDICAID ==
[~2019-10-17] VITALS: Ht 157.5 cm; Wt 59.1 kg
[~2019-10-17 23:47] MED LIST changes: +ACETAMINOPHEN325 MG PO; +METOPROLOL TART50 MG PO
[2019-10-17 23:55] VITALS: Ht 157.5 cm; Wt 59.1 kg
[2019-10-18 00:52] LABS: BASOPHILS 0.3 % (0-2); HEMATOCRIT 33.7 % (36.0-48.0); HEMOGLOBIN 11.4 g/dL (12-16); IMMATURE GRANULOCYTES 0.1 % (0-5); LYMPHOCYTES 25.5 % (15-50); MCH 28.9 pg (26.0-34.0); MCHC 33.8 g/dL (31.0-37.0); MCV 85.5 fL (80.0-100.0); MEAN PLATELET VOLUME 9.8 fL (7.4-10.4); MONOCYTES 8.9 % (2-11); NEUTROPHILS 57.2 % (40-80); PLATELET COUNT 185 10x3/uL (130-400); RBC 3.94 10x6/uL (4.00-5.40); RDW 13.3 % (11.5-14.5); WBC 7.6 10x3/uL (4.8-10.8)
[2019-10-18 01:01] LABS: APTT 38.8 SECONDS (22.8-39.4); INR 1.96 (0.85-1.17); PROTIME 22.1 SECONDS (11.6-15.0)
[2019-10-18 01:02] LABS: CALC OSMOLALITY 275 mosm/kg (275-300); CALCIUM 8.2 mg/dL (8.5-10.1); CARBON DIOXIDE 30.9 mmol/L (21.0-32.0); CHLORIDE - SERUM 103 mmol/L (98-107); CREATININE - SERUM 1.3 mg/dL (0.6-1.3); D-DIMER-QUANTITATIVE 0.53 ug/mLFEU (0.20-0.54); GLUCOSE 119 mg/dL (74-106); POTASSIUM - SERUM 3.4 mmol/L (3.5-5.1); SODIUM 136 mmol/L (136-145); UREA NITROGEN 20 mg/dL (7-18); eGFR NON AFRICAN AMERICAN 45 mL/min (90-120)
[2019-10-18 01:17] LABS: ALBUMIN 3.4 g/dL (3.4-5.0); ALKALINE PHOSPHATASE 83 U/L (30-120); ALT (SGPT) 31 U/L (10-68); BILIRUBIN - TOTAL 0.26 mg/dL (0.2-1.3); CKMB 0.1 U/L (0.0-3.6); CREATINE KINASE 52 UL (21-215); MAGNESIUM - SERUM 1.8 mg/dL (1.8-2.4); TROPONIN-I < 0.017 ng/mL (0.000-0.060)
[2019-10-18] MEDS ORDERED: METOPROLOL TART50 MG PO (02:41)
[2019-10-18 03:22] VITALS: BP 132/68
[2019-10-18] MEDS ORDERED: COUMADIN1 MG PO (21:42)
== END 2019-10-18 03:22 | disposition home or self-care (01) ==
LOC: D.ER 23:47
PROVIDERS: Family Medicine
DX: I48.0 Paroxysmal atrial fibrillation (principal); E87.6 Hypokalemia; T82.847A Pain due to cardiac prosthetic devices, implants and grafts, initial encounter; Z95.0 Presence of cardiac pacemaker; Z72.0 Tobacco use

== ENCOUNTER 2019-10-18 16:31 | Inpatient (IN) | payer MEDICARE, MEDICAID ==
[~2019-10-18] VITALS: Ht 152.4 cm; Wt 63.4 kg
[2019-10-18 17:18] LABS: BASOPHILS 0.4 % (0-2); EOSINOPHILS 10.1 % (0-7); HEMATOCRIT 35.6 % (36.0-48.0); IMMATURE GRANULOCYTES 0.1 % (0-5); LYMPHOCYTES 33.2 % (15-50); MCH 29.2 pg (26.0-34.0); MCHC 33.7 g/dL (31.0-37.0); MCV 86.6 fL (80.0-100.0); MEAN PLATELET VOLUME 10.3 fL (7.4-10.4); MONOCYTES 10.9 % (2-11); NEUTROPHILS 45.3 % (40-80); PLATELET COUNT 218 10x3/uL (130-400); RBC 4.11 10x6/uL (4.00-5.40); RDW 13.4 % (11.5-14.5)
[2019-10-18 17:32] LABS: APTT 39.3 SECONDS (22.8-39.4); INR 2.26 (0.85-1.17); PROTIME 24.7 SECONDS (11.6-15.0)
[2019-10-18 17:33] LABS: CALCIUM 8.9 mg/dL (8.5-10.1); CARBON DIOXIDE 30.8 mmol/L (21.0-32.0); CHLORIDE - SERUM 105 mmol/L (98-107); CREATININE - SERUM 1.3 mg/dL (0.6-1.3); GLUCOSE 118 mg/dL (74-106); SODIUM 142 mmol/L (136-145); eGFR NON AFRICAN AMERICAN 45 mL/min (90-120)
[2019-10-18 17:47] LABS: CALC OSMOLALITY 284 mosm/kg (275-300); UREA NITROGEN 14 mg/dL (7-18)
[2019-10-18 17:48] VITALS: BP 140/77
[2019-10-18 17:50] LABS: ALBUMIN 3.7 g/dL (3.4-5.0); ALKALINE PHOSPHATASE 112 U/L (30-120); BILIRUBIN - TOTAL 0.39 mg/dL (0.2-1.3); CKMB 0.2 U/L (0.0-3.6); CREATINE KINASE 60 UL (21-215); PROTEIN - SERUM 7.4 g/dL (6.4-8.2)
[2019-10-18 17:52] LABS: ALT (SGPT) 40 U/L (10-68); TROPONIN-I < 0.017 ng/mL (0.000-0.060)
--- NOTE | 2019-10-18 19:23 | NUR ---
PACEMAKER INTERROGATED
--- NOTE | 2019-10-18 19:28 | NUR ---
REPORT GIVEN TO RENZO TAYLOR
[2019-10-18 19:33] VITALS: BP 146/71
[2019-10-18] MEDS ORDERED: COUMADIN1 MG PO (21:42)
[2019-10-18 23:54] LABS: CKMB 0.1 U/L (0.0-3.6); CREATINE KINASE 36 UL (21-215); TROPONIN-I < 0.017 ng/mL (0.000-0.060)
[2019-10-19 01:11] VITALS: Ht 152.4 cm; Wt 63.4 kg
[2019-10-19 06:01] VITALS: BP 153/74
[2019-10-19 06:07] LABS: BASOPHILS 0.3 % (0-2); HEMATOCRIT 33.6 % (36.0-48.0); IMMATURE GRANULOCYTES 0.2 % (0-5); MCH 28.9 pg (26.0-34.0); MCHC 32.7 g/dL (31.0-37.0); MCV 88.2 fL (80.0-100.0); MEAN PLATELET VOLUME 10.4 fL (7.4-10.4); MONOCYTES 8.2 % (2-11); NEUTROPHILS 51.3 % (40-80); PLATELET COUNT 198 10x3/uL (130-400); RBC 3.81 10x6/uL (4.00-5.40); RDW 13.5 % (11.5-14.5); WBC 6.1 10x3/uL (4.8-10.8)
[2019-10-19 06:37] LABS: ALKALINE PHOSPHATASE 101 U/L (30-120); ALT (SGPT) 36 U/L (10-68); BILIRUBIN - TOTAL 0.22 mg/dL (0.2-1.3); CALC OSMOLALITY 285 mosm/kg (275-300); CALCIUM 8.1 mg/dL (8.5-10.1); CARBON DIOXIDE 28.3 mmol/L (21.0-32.0); CHLORIDE - SERUM 109 mmol/L (98-107); CKMB 0.3 U/L (0.0-3.6); CREATINE KINASE 31 UL (21-215); CREATININE - SERUM 1.1 mg/dL (0.6-1.3); GLUCOSE 96 mg/dL (74-106); MAGNESIUM - SERUM 1.9 mg/dL (1.8-2.4); PHOSPHOROUS 4.7 mg/dL (2.5-4.9); POTASSIUM - SERUM 3.9 mmol/L (3.5-5.1); PROTEIN - SERUM 6.3 g/dL (6.4-8.2); SODIUM 143 mmol/L (136-145); UREA NITROGEN 15 mg/dL (7-18); eGFR NON AFRICAN AMERICAN 54 mL/min (90-120)
[2019-10-19 06:41] LABS: TROPONIN-I < 0.017 ng/mL (0.000-0.060)
--- NOTE | 2019-10-19 07:10 | NUR ---
REPORT RECEIVED FROM MASTER ESTHETICIAN AND PATIENT CARE ASSUMED. PATIENT LAYING IN BED ON BACK WITH EYES CLOSED AND BREATHING EVENLY. WILL CONTINUE WITH PLAN OF CARE. SR UP X 2 BED IN LOW POSITION AND CALL LIGHT IN REACH.
[2019-10-19 11:33] LABS: CKMB 0.2 U/L (0.0-3.6); CREATINE KINASE 27 UL (21-215)
[2019-10-19 11:36] LABS: TROPONIN-I < 0.017 ng/mL (0.000-0.060)
[2019-10-19 12:01] VITALS: BP 170/84
[2019-10-19 14:43] LABS: BILIRUBIN NEGATIVE (NEGATIVE); GLUCOSE NEGATIVE (NEGATIVE); KETONE NEGATIVE (NEGATIVE); NITRITE NEGATIVE (NEGATIVE); SPECIFIC GRAVITY 1.005 (1.005-1.020)
[2019-10-19 16:21] VITALS: BP 163/77
--- NOTE | 2019-10-19 16:45 | NUR ---
PATIENT RESTING QUIETLY WATCHING TV. PATIENT IS STABLE AND VSS. PATIENT DENIES ANY NEEDS OR PAIN. WILL CONTINUE TO MONITOR. SR UP X 2 BED IN LOW POSITION AND CALL LIGHT IN REACH.
--- NOTE | 2019-10-19 19:27 | NUR ---
RECEIVED BEDSIDE REPORT. PATIENT IS ALERT AND ORIENTED, RESTING COMFORTABLY IN BED. RESPIRATIONS ARE EVEN AND UNLABORED. NO S/S OF DISTRESS. NO C/O PAIN. CALL LIGHT WITHIN REACH. WILL CPOC.
[2019-10-19 20:00] VITALS: BP 135/70
[2019-10-20] VITALS: BP 183/94
[2019-10-20 04:00] VITALS: BP 139/77
[2019-10-20 06:34] LABS: BASOPHILS 0.5 % (0-2); EOSINOPHILS 9.7 % (0-7); HEMATOCRIT 32.3 % (36.0-48.0); HEMOGLOBIN 10.8 g/dL (12-16); IMMATURE GRANULOCYTES 0.2 % (0-5); LYMPHOCYTES 38.4 % (15-50); MCH 28.9 pg (26.0-34.0); MCHC 33.4 g/dL (31.0-37.0); MCV 86.4 fL (80.0-100.0); MEAN PLATELET VOLUME 10.3 fL (7.4-10.4); NEUTROPHILS 42.2 % (40-80); PLATELET COUNT 209 10x3/uL (130-400); RBC 3.74 10x6/uL (4.00-5.40); RDW 13.2 % (11.5-14.5); WBC 6.1 10x3/uL (4.8-10.8)
[2019-10-20 06:54] LABS: ANION GAP 11.1 mmol/L (8-16); C-REACTIVE PROTEIN 1.7 mg/dL (0.0-0.9); CALCIUM 8.3 mg/dL (8.5-10.1); CARBON DIOXIDE 26.5 mmol/L (21.0-32.0); CREATININE - SERUM 1.2 mg/dL (0.6-1.3); POTASSIUM - SERUM 3.6 mmol/L (3.5-5.1)
--- NOTE | 2019-10-20 07:15 | NUR ---
RECEIVED PT IN BED EYES CLOSED RESP UNLABORED SKIN W/D NAD NOTED
--- NOTE | 2019-10-20 07:39 | NUR ---
REPORT RECEIVED FROM FOOD AND DRINK FACTORY WORKERS AND PATIENT CARE ASSUMED. PATIENT LAYING IN BED ON LT SIDE WITH EYES CLOSED AND BRETHING EVENLY. WILL CONTINUE WITH PLAN OF CARE. SR U X 2 BED IN LOW POSITION AND CALL LIGHT IN REACH.
[2019-10-20 08:57] VITALS: BP 169/91
[2019-10-20 09:13] LABS: ERYTHROCYTE SEDIMENTATION RATE 26 mm/hr (0-30)
[2019-10-20 12:02] VITALS: BP 158/89
[2019-10-20] MEDS ORDERED: METOPROLOL TART50 MG PO (13:40)
--- NOTE | 2019-10-20 16:00 | NUR ---
REVIEWED DISCHARGE INSTRUCTIONS WITH PT STATES UNDERSTANDING COPY GIVEN DCD SALINE LOCK TO RFA WITH IV CATHETER INTACT SITE FREE OF REDNESS OR EDEMA NAD NOTED PT DISCHARGED HOME IN STABLE CONDITION WITH ALL PERSONAL BELONGINGS LEFT VIA W/C
--- NOTE | 2019-10-20 18:27 | MORECARE ---
CASE MANAGEMENT DISCHARGE SUMMARY PATIENT: FUNMILAYO ALEGRE UNIT: [id number] ADM DATE: 10/19/19 AGE: 54 : 61 SEX: F ROOM/BED: D.7290 AUTHOR: LISA,DOC PHYSICIAN: REFERRING PHYSICIAN: MILANA HALL MD DATE OF SERVICE: 10/20/19 Discharge Plan Patient Name: FUNMILAYO ALEGRE Facility: [facility]:[place] : 1965 Planned Disposition: Home Anticipated Discharge Date: 10/20/19 Discharge Date: 10/20/2019 Expected LOS: 1 Initial Reviewer: [email or web address] Initial Review Date: 10/20/2019 Generated: 10/20/19 7:26 pm Comments DCP- Discharge Planning Updated by [email or web address]: Corey Helm on 10/20/19 5:[address] Patient Name: FUNMILAYO ALEGRE Admission Status: ER Accout number: [id number] Admission Date: 10-19-2019 : 1965 Admission Diagnosis: Attending: MILANA HALL Current LOS: 1 Anticipated DC Date: 10-20-2019 Planned Disposition: Home Primary Insurance: [employer] ADV Discharge Planning Comments: CM MET WITH PT IN ROOM TO DISCUSS DISCHARGE PLANNING AND NEEDS. PT REPORTS LIVING AT HOME INDEPENDENTLY WITH A ROOMMATE. PT HAS INR MACHINE WITH NO MEDICAL EQUIPMENT PROVIDER PREFERENCE. PT HAS NO OUTSIDE SERVICES ASSISTING IN THE HOME. CM DISCUSSED AVAILABILITY OF HOME HEALTH, REHAB SERVICES AND MEDICAL EQUIPMENT. PT DENIES DISCHARGE NEEDS, REPORTS HER FRIEND WILL PICK HER UP FOR DISCHARGE HOME. Inspector Wire Products: Corey Helm DCPIA - Discharge Planning Initial Assessment Updated by [email or web address]: Corey Helm on 10/20/19 6:20 pm * Is the patient Alert and Oriented? Yes * How many steps to enter\exit or inside your home? NONE * PCP DR. Kaushik GRIFFIN * Pharmacy [facility] * Preadmission Environment Home with Family * ADLs Independent * Equipment Other * Other Equipment INR MACHINE, NO PROVIDER PREFERENCE * List name and contact numbers for known caregivers / representatives who currently or will assist patient after discharge: WESLEY AUGUST, SON, * Verbal permission to speak to the caregivers and representatives has been obtained from the patient. N/A * Community resources currently utilized None * Please name any agencies selected above. NONE * Additional services required to return to the preadmission environment? No * Can the patient safely return to the preadmission environment? Yes * Has this patient been hospitalized within the prior 30 days at any hospital? No Patient Name: FUNMILAYO ALEGRE Page [phone] at 1827 All edits/amendments must be made on the electronic document DICTATION DATE: 10/20/191825 FOOD ASSEMBLER COMMISSARY KITCHEN: ANDREW 10/20/191825 RPT#: [id number] DC DATE:10/20/19 STATUS: DIS IN [facility] [address] [place] [address] END OF REPORT
== END 2019-10-20 16:00 | disposition home or self-care (01) | DRG 313 ==
LOC: D.ER 16:31 → D.M2 18:41 → OBSVTIME 18:41 → D.M2 10-19 13:07
PROVIDERS: Family Medicine; ADMIT Internal Medicine Nephrology; ATTEND Internal Medicine Nephrology
DX: R07.9 Chest pain, unspecified (principal); F17.213 Nicotine dependence, cigarettes, with withdrawal; D64.9 Anemia, unspecified; I10 Essential (primary) hypertension; K21.9 Gastro-esophageal reflux disease without esophagitis; I48.91 Unspecified atrial fibrillation; M79.7 Fibromyalgia

== ENCOUNTER 2019-10-29 20:15 | Emergency (ER) | payer MEDICARE, MEDICAID ==
[~2019-10-29] VITALS: Ht 152.4 cm; Wt 55.9 kg
[2019-10-29 20:29] VITALS: Ht 152.4 cm; Wt 55.9 kg
[2019-10-29] MEDS ORDERED: LOPRESSOR25 MG PO (20:32)
[2019-10-29 20:44] LABS: BASOPHILS 0.9 % (0-2); EOSINOPHILS 6.3 % (0-7); HEMATOCRIT 43.1 % (36.0-48.0); HEMOGLOBIN 14.4 g/dL (12-16); IMMATURE GRANULOCYTES 0.1 % (0-5); MCH 29.2 pg (26.0-34.0); MCHC 33.4 g/dL (31.0-37.0); MCV 87.4 fL (80.0-100.0); MEAN PLATELET VOLUME 9.6 fL (7.4-10.4); NEUTROPHILS 41.7 % (40-80); PLATELET COUNT 344 10x3/uL (130-400); RBC 4.93 10x6/uL (4.00-5.40); RDW 13.5 % (11.5-14.5); WBC 7.7 10x3/uL (4.8-10.8)
[2019-10-29 20:51] LABS: CALC OSMOLALITY 280 mosm/kg (275-300); CALCIUM 9.3 mg/dL (8.5-10.1); CARBON DIOXIDE 28.3 mmol/L (21.0-32.0); CHLORIDE - SERUM 101 mmol/L (98-107); CREATININE - SERUM 1.2 mg/dL (0.6-1.3); GLUCOSE 98 mg/dL (74-106); POTASSIUM - SERUM 3.7 mmol/L (3.5-5.1); SODIUM 140 mmol/L (136-145); UREA NITROGEN 19 mg/dL (7-18); eGFR NON AFRICAN AMERICAN 49 mL/min (90-120)
[2019-10-29 20:52] LABS: INR 3.96 (0.85-1.17); PROTIME 37.9 SECONDS (11.6-15.0)
[2019-10-29 20:53] LABS: APTT 61.4 SECONDS (22.8-39.4)
[2019-10-29 21:00] LABS: ALBUMIN 4.4 g/dL (3.4-5.0); ALKALINE PHOSPHATASE 99 U/L (30-120); ALT (SGPT) 17 U/L (10-68); BILIRUBIN - TOTAL 0.39 mg/dL (0.2-1.3); PROTEIN - SERUM 8.7 g/dL (6.4-8.2)
[2019-10-29 21:07] LABS: TROPONIN-I < 0.017 ng/mL (0.000-0.060)
[2019-10-29] MEDS ORDERED: ULTRAM50 MG PO (21:33)
[2019-10-29 22:05] VITALS: BP 175/101
== END 2019-10-29 22:05 | disposition home or self-care (01) ==
LOC: D.ER 20:15
PROVIDERS: Emergency Medicine
DX: R07.81 Pleurodynia (principal); Z95.0 Presence of cardiac pacemaker; R11.0 Nausea

== ENCOUNTER 2019-11-04 05:21 | Emergency (ER) | payer MEDICARE, MEDICAID ==
[~2019-11-04] VITALS: Ht 152.4 cm; Wt 63.6 kg
[~2019-11-04 05:21] MED LIST changes: +ULTRAM50 MG PO
[2019-11-04 05:34] VITALS: Ht 152.4 cm; Wt 63.6 kg
[2019-11-04] MEDS ORDERED: TALWIN NX1 TAB PO (07:27)
[2019-11-04 07:43] VITALS: BP 160/100
== END 2019-11-04 07:44 | disposition home or self-care (01) ==
LOC: D.ER 05:21
DX: R07.81 Pleurodynia (principal); R07.1 Chest pain on breathing; Z95.0 Presence of cardiac pacemaker

== ENCOUNTER 2019-11-27 17:13 | Emergency (ER) | payer MEDICARE, MEDICAID ==
[~2019-11-27] VITALS: Ht 152.4 cm; Wt 45.5 kg
[~2019-11-27 17:13] MED LIST changes: +TALWIN NX1 TAB PO
[2019-11-27 17:25] VITALS: Ht 152.4 cm; Wt 45.5 kg
[2019-11-27] MEDS ORDERED: CYCLOBENZAPRINE10 MG PO (18:12)
[2019-11-27 18:34] VITALS: BP 146/79
== END 2019-11-27 18:35 | disposition home or self-care (01) ==
LOC: D.ER 17:13
DX: M62.830 Muscle spasm of back (principal); T82.847A Pain due to cardiac prosthetic devices, implants and grafts, initial encounter; Z95.0 Presence of cardiac pacemaker

== ENCOUNTER 2019-11-28 01:54 | Emergency (ER) | payer MEDICARE, MEDICAID ==
[~2019-11-28] VITALS: Ht 152.4 cm; Wt 55.3 kg
[~2019-11-28 01:54] MED LIST changes: +CYCLOBENZAPRINE10 MG PO
[2019-11-28 01:58] VITALS: Ht 152.4 cm; Wt 55.3 kg
[2019-11-28 02:56] VITALS: BP 110/82
== END 2019-11-28 02:56 | disposition home or self-care (01) ==
LOC: D.ER 01:54
DX: S09.90XA Unspecified injury of head, initial encounter (principal); W01.10XA Fall on same level from slipping, tripping and stumbling with subsequent striking against unspecified object, initial encounter; Y93.9 Activity, unspecified; Y92.89 Other specified places as the place of occurrence of the external cause; R51 Headache; G89.29 Other chronic pain; Z95.0 Presence of cardiac pacemaker

== ENCOUNTER 2020-05-23 18:37 | Emergency (ER) | payer MEDICARE, MEDICAID ==
[~2020-05-23] VITALS: Ht 157.5 cm; Wt 54.5 kg
[2020-05-23 18:43] VITALS: Ht 157.5 cm; Wt 54.5 kg
[2020-05-23 19:14] LABS: BASOPHILS 0.3 % (0-2); EOSINOPHILS 2.4 % (0-7); HEMATOCRIT 37.9 % (36.0-48.0); HEMOGLOBIN 12.4 g/dL (12-16); IMMATURE GRANULOCYTES 0.3 % (0-5); LYMPHOCYTES 25.7 % (15-50); MCH 29.2 pg (26.0-34.0); MCHC 32.7 g/dL (31.0-37.0); MCV 89.2 fL (80.0-100.0); MEAN PLATELET VOLUME 9.4 fL (7.4-10.4); MONOCYTES 10.1 % (2-11); NEUTROPHILS 61.2 % (40-80); PLATELET COUNT 352 10x3/uL (130-400); RBC 4.25 10x6/uL (4.00-5.40); RDW 14.4 % (11.5-14.5); WBC 8.7 10x3/uL (4.8-10.8)
[2020-05-23 19:28] LABS: INR 1.93 (0.85-1.17); PROTIME 21.8 SECONDS (11.6-15.0)
[2020-05-23 19:29] LABS: CALC OSMOLALITY 273 mosm/kg (275-300); CALCIUM 9.4 mg/dL (8.5-10.1); CARBON DIOXIDE 19.6 mmol/L (21.0-32.0); CHLORIDE - SERUM 105 mmol/L (98-107); CREATININE - SERUM 1.1 mg/dL (0.6-1.3); GLUCOSE 112 mg/dL (74-106); POTASSIUM - SERUM 3.8 mmol/L (3.5-5.1); SODIUM 136 mmol/L (136-145); UREA NITROGEN 16 mg/dL (7-18); eGFR NON AFRICAN AMERICAN 54 mL/min (90-120)
[2020-05-23 19:45] LABS: ALBUMIN 3.8 g/dL (3.4-5.0); ALKALINE PHOSPHATASE 107 U/L (30-120); ALT (SGPT) 44 U/L (10-68); BILIRUBIN - TOTAL 0.31 mg/dL (0.2-1.3); CKMB 0.1 U/L (0.0-3.6); CREATINE KINASE 59 UL (21-215); MAGNESIUM - SERUM 2.2 mg/dL (1.8-2.4); PROTEIN - SERUM 8.3 g/dL (6.4-8.2)
[2020-05-23 19:53] LABS: TROPONIN-I < 0.017 ng/mL (0.000-0.060)
[2020-05-23] MEDS ORDERED: METOPROLOL TART50 MG PO (21:05)
[2020-05-23] MEDS ORDERED: JANTOVEN3 MG PO (21:05)
[2020-05-23] MEDS ORDERED: KLONOPIN1 MG PO (21:05)
[2020-05-23] MEDS ORDERED: JANTOVEN1 MG PO (21:05)
[2020-05-23 21:41] VITALS: BP 173/106
== END 2020-05-23 21:42 | disposition home or self-care (01) ==
LOC: D.ER 18:37
PROVIDERS: Family Medicine
DX: I10 Essential (primary) hypertension (principal); Z72.0 Tobacco use

== ENCOUNTER 2020-11-24 08:07 | Emergency (ER) | payer MEDICARE, MEDICAID ==
[~2020-11-24] VITALS: Ht 157.5 cm; Wt 56.4 kg
[~2020-11-24 08:07] MED LIST changes: +JANTOVEN1 MG PO; +JANTOVEN3 MG PO
[2020-11-24 08:14] VITALS: Ht 157.5 cm; Wt 56.4 kg
[2020-11-24 08:31] LABS: BASOPHILS 0.4 % (0-2); EOSINOPHILS 0.5 % (0-7); HEMATOCRIT 37.1 % (36.0-48.0); HEMOGLOBIN 12.3 g/dL (12-16); IMMATURE GRANULOCYTES 0.2 % (0-5); LYMPHOCYTE ABS# 1.41 10x3/uL (1.18-3.74); LYMPHOCYTES 13.9 % (15-50); MCH 28.1 pg (26.0-34.0); MCHC 33.2 g/dL (31.0-37.0); MCV 84.9 fL (80.0-100.0); MEAN PLATELET VOLUME 9.9 fL (7.4-10.4); MONOCYTES 8.3 % (2-11); NEUTROPHILS 76.7 % (40-80); PLATELET COUNT 260 10x3/uL (130-400); RBC 4.37 10x6/uL (4.00-5.40); RDW 14.9 % (11.5-14.5); WBC 10.2 10x3/uL (4.8-10.8)
[2020-11-24 08:39] LABS: INR 1.76 (0.85-1.17)
[2020-11-24 08:40] LABS: APTT 35.5 SECONDS (22.8-39.4)
[2020-11-24 08:41] LABS: D-DIMER-QUANTITATIVE 0.92 ug/mLFEU (0.20-0.54)
[2020-11-24 08:50] LABS: CALC OSMOLALITY 281 mosm/kg (275-300); CALCIUM 9.3 mg/dL (8.5-10.1); CARBON DIOXIDE 21.4 mmol/L (21.0-32.0); CHLORIDE - SERUM 102 mmol/L (98-107); CREATININE - SERUM 1.4 mg/dL (0.6-1.3); GLUCOSE 124 mg/dL (74-106); POTASSIUM - SERUM 3.3 mmol/L (3.5-5.1); SODIUM 138 mmol/L (136-145); UREA NITROGEN 27 mg/dL (7-18); eGFR NON AFRICAN AMERICAN 41 mL/min (90-120)
[2020-11-24 09:07] LABS: ALBUMIN 4.4 g/dL (3.4-5.0); ALKALINE PHOSPHATASE 79 U/L (30-120); ALT (SGPT) 25 U/L (10-68); BILIRUBIN - TOTAL 0.91 mg/dL (0.2-1.3); CKMB 4.3 U/L (0.0-3.6); CREATINE KINASE 816 UL (21-215); PRO BNP 3019 pg/mL (0-125); PROTEIN - SERUM 8.5 g/dL (6.4-8.2); TROPONIN-I < 0.017 ng/mL (0.000-0.060)
[2020-11-24 10:21] LABS: UDS - AMPHET POSITIVE QUAL (NEGATIVE); UDS - BARB NEGATIVE QUAL (NEGATIVE); UDS - BENZO POSITIVE QUAL (NEGATIVE); UDS - COCAINE NEGATIVE QUAL (NEGATIVE); UDS - OPIATE NEGATIVE QUAL (NEGATIVE); UDS - PCP NEGATIVE QUAL (NEGATIVE); UDS - THC NEGATIVE QUAL (NEGATIVE)
[2020-11-24 10:29] LABS: AMORPHOUS SEDIMENT MODERATE LPF (NONE SEEN); BACTERIA FEW HPF (NONE SEEN); BILIRUBIN NEGATIVE (NEGATIVE); KETONE NEGATIVE (NEGATIVE); NITRITE NEGATIVE (NEGATIVE); SQUAMOUS EPITHELIAL 0-5 HPF (0-4); UROBILINOGEN NORMAL mg/dL (< 2); WHITE CELLS - URINE 0-5 HPF (0-4)
[2020-11-24 11:13] VITALS: BP 172/77
== END 2020-11-24 11:29 | disposition home or self-care (01) ==
LOC: D.ER 08:07
PROVIDERS: Family Medicine
DX: R06.02 Shortness of breath (principal); F41.9 Anxiety disorder, unspecified; F13.10 Sedative, hypnotic or anxiolytic abuse, uncomplicated; R79.89 Other specified abnormal findings of blood chemistry; R60.9 Edema, unspecified; F15.10 Other stimulant abuse, uncomplicated; N28.9 Disorder of kidney and ureter, unspecified

== ENCOUNTER 2021-01-02 09:41 | Emergency (ER) | payer MEDICARE, MEDICAID ==
[~2021-01-02] VITALS: Ht 157.5 cm; Wt 56.8 kg
[2021-01-02 09:46] VITALS: BP 124/96; Ht 157.5 cm; Wt 56.8 kg
[2021-01-02] MEDS ORDERED: CLINDAMYCIN HC150 MG PO (09:54)
== END 2021-01-02 10:00 | disposition home or self-care (01) ==
LOC: D.ER 09:41
DX: K04.7 Periapical abscess without sinus (principal); F41.9 Anxiety disorder, unspecified; K08.89 Other specified disorders of teeth and supporting structures